=== PATIENT | female | born 2005 | race Caucasian/White ===

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

== ENCOUNTER 2025-01-25 16:07 | Emergency (ER) | payer MEDICAID, SELFPAY ==
[2025-01-25 16:07] VITALS: BP 109/69; PULSE 107; RESP 16; TEMP 36.9; O2SAT 97; BMI 17.4
--- NOTE | 2025-01-25 16:33 | EKG12_ITS ---
Test Reason : PLACEMENT Blood Pressure : */* mmHG Vent. Rate : 69 BPM Atrial Rate : 69 BPM P-R Int : 154 ms QRS Dur : 84 ms QT Int : 358 ms P-R-T Axes : 69 83 71 degrees QTcB Int : 383 ms Normal sinus rhythm Normal ECG Confirmed by Kevin Pardo ([id number]), sports editor MEGHA BUTLER ([id number]) on 01/28/2025 11:49:50 AM Referred By: Confirmed By: Kevin Pardo
--- NOTE | 2025-01-25 16:33 | EX.ED.VIS.PS ---
HPI HPI - Psych History of Present Illness Chief Complaint: Suicidal Informant: patient Narrative Narrative: Patient reports was dropped off from her father for mental health evaluation. She did not tell her father why she wanted to be dropped off. History of anxiety depression, PTSD, ADHD, borderline personality disorder followed by psychology. Increasing suicidal thoughts secondary to stress. States overall stress in general with life, relationship, the world, the way I look. 3 weeks self cutting her thigh reporting wanted to bleed to . She did not get evaluated. Yesterday she tried to strangle herself with a cord. She states she passed out. She awakened. Denies neck pain. States medication has not worked for her in the past. She used to live in [place] she moved here a little over a year ago lived with her grandmother where she was kicked out. She has been with her father for the past year. She contacted her mother today who told her to tell her father take her to emergency department. She was hospitalized this past July. Denies alcohol reports smoked marijuana yesterday uses intermittently however is trying to quit. Prior similar symptoms: Yes PFSH PFSH Medical History Wears glasses Depression Anxiety Marijuana use Alcohol use Anemia Fatty liver Easy bruising Back pain Injury of head and neck Restless legs Migraine headache Dietary restriction History of IBS Gastric reflux Former smoker History of edema History of irregular heartbeat History of bulimia nervosa Borderline personality disorder PTSD (post-traumatic stress disorder) Major depressive disorder, recurrent severe without psychotic features Home Medications ?Medication ?Instructions ?Recorded ?Last Taken ?Type ergocalciferol (vitamin D2) 50 mcg 50 mcg PO WE 09/02/24 Unknown History (2,000 unit) capsule ferrous sulfate 325 mg (65 mg 325 mg PO QDAY 09/02/24 Unknown History iron) tablet (FeroSul) omeprazole 40 mg capsule,delayed 40 mg PO QDAY #30 caps 09/03/24 09/15/24 Rx release Allergy/AdvReac Type Severity Reaction Status Date / Time Penicillins Allergy Unknown Verified 01/25/25 16:07 Family History Mother Asthma Diabetes Hypertension Father Diabetes Surgical History History of esophagogastroduodenoscopy (EGD) Social History Smoking Status: Former smoker ROS ROS ED Constitutional Constitutional ED: Denies chills, fever(s) or sweats ENT ENT ED: Denies sore throat Cardiovascular Cardiovascular: Denies chest pain, leg edema, palpitations or racing heartbeat Respiratory/Chest Respiratory/Chest: Denies cough, dyspnea or dyspnea on exertion Gastrointestinal Gastrointestinal: Denies abdominal pain, diarrhea, nausea or vomiting Genitourinary Genitourinary ED: Denies dysuria, hematuria or urinary frequency Musculoskeletal Musculoskeletal: Denies back pain, extremity pain or neck pain Integumentary Denies rash or wounds Neurologic Neurologic: Denies headache(s), paresthesias or weakness Psychiatric Psychiatric: Reports depression, suicidal ideation, suicidal thoughts and other Details: Suicide attempt EXAM Physical Exam Const Vital Signs: 01/25/25 16:07 Temperature 98.5 F Temperature Source Oral Pulse Rate 107 H Respiratory Rate 16 Blood Pressure 109/69 Blood Pressure Mean 82 Pulse Ox 97 Oxygen Delivery Method Room Air Positive well nourished and well developed General Appearance ED: well developed and NAD HEENT Reports moist mucous membranes normocephalic and atraumatic Eyes General Eye ED: Yes normal appearance of both eyes Neck full ROM Neck Narrative: superficial abrasion left anterior neck. Chest Wall Chest: Negative for tenderness Resp normal respiratory effort and normal air movement Effort and Inspection: symmetric chest movement; Negative for respiratory distress Cardio regular rate, regular rhythm and no murmurs Peripheral Pulses: pulses 2+ throughout GI normal to inspection, nondistended, normoactive bowel sounds and non-tender Palpation: Negative for guarding or rebound tenderness present Extremity normal to inspection General Extremety ED: Negative for edema or tenderness General Extremity: Negative for edema Neuro oriented x3 and no sensory deficits noted Sensorium / Orientation: awake and alert Psych Psych Narrative: Suicidal ideation with attempt, no homicidal ideations. Flat affect. Skin no rashes or lesions noted Skin Narrative: Right thigh superficial horizontal abrasion and that is healing there is no deep lacerations noted. No active bleeding. MDM MDM MDM Narrative Medical decision making narrative: Interventions / MDM: Differential diagnosis: Depression, suicidal ideation with attempt, self injury. Diagnosis considered but do not suspect: N/A My EKG interpretation: Sinus rate of 69, no ST changes. QTc 383 Imaging independently reviewed and interpreted by myself: N/A External documents reviewed: N/A Test considered but not ordered:N/A ED course: Patient depression suicidal ideations with attempt yesterday. Reported syncopal episode. No neck pain for concerns for neck injury. Abrasion noted on the neck. EKG will be obtained. Medical clearance labs. 1733: EKG normal labs are normal toxicology negative alcohol negative. Patient medically cleared. Clive slip will be filled out. Will have crisis evaluation for disposition plans. 1999: Patient evaluated by crisis agrees that patient will benefit from inpatient management. We discussed this with the patient and she understands that she is not going home. Currently working on placement. 2229: Patient requesting something to help her sleep. She is given hydroxyzine. Re-evaluation: stable Disposition discussed with patient/family/significant other: Patient Case discussed with consulting clinician: Zachary This note was generated with Orange[employer] dictation software. It may contain incorrect words, spelling, and punctuation that were not noted in checking the note before signing. Lab Data Attestation: I reviewed the patient's lab results. Labs: Laboratory Results - last 24 hr 01/25/25 16:30 WBC 6.9 RBC 4.12 L Hgb 12.5 Hct 37.0 MCV 89.8 MCH 30.3 MCHC 33.8 RDW Std Deviation 36.7 RDW Coeff of Valentino 11.3 L Plt Count 398 MPV 11.3 Immature Gran % (Auto) 0.300 Neut % (Auto) 54.5 Lymph % (Auto) 36.0 [place] % (Auto) 7.7 Eos % (Auto) 0.9 Baso % (Auto) 0.6 Absolute Neuts (auto) 3.8 Absolute Lymphs (auto) 2.49 Nucleated RBC % 0 Sodium 141 Potassium 3.7 Chloride 103 Carbon Dioxide 24.4 Anion Gap 14 BUN 9 Creatinine 0.84 Estim Creat Clear Calc 94.11 Est GFR (MDRD) Non-Af 102 BUN/Creatinine Ratio 10.2 Glucose 115 H Calcium 9.7 Serum , Qual NEGATIVE Urine Opiates Screen NEGATIVE U Buprenorphine Qual NEGATIVE Ur Oxycodone Screen NEGATIVE Urine Methadone Screen NEGATIVE Urine Fentanyl Screen NEGATIVE Ur Barbiturates Screen NEGATIVE Ur Phencyclidine Scrn NEGATIVE Ur Amphetamines Screen NEGATIVE U Benzodiazepines Scrn NEGATIVE Urine Cocaine Screen NEGATIVE U Cannabinoids Screen NEGATIVE Ethyl Alcohol < 10.1 Discharge Plan Triage Chief Complaint: Suicidal ED Provider: Vidal Molina Dx/Rx/DC Orders Clinical Impression: Has access to planned means of suicide, Depression, Self-inflicted injury Prescriptions: No Action ferrous sulfate [FeroSul] 325 mg (65 mg iron) tablet 325 mg PO QDAY ergocalciferol (vitamin D2) 50 mcg (2,000 unit) capsule 50 mcg PO WE omeprazole 40 mg capsule,delayed release(DR/EC) 40 mg PO QDAY Qty: 30 1RF Rx Instructions: swallow whole; do not crush, chew, dissolve, cut, break Primary Care Provider: Chiquita Buenrostro Referrals: Chiquita Buenrostro, DO [Primary Care Provider] - Print Language: Bahraini Disposition Disposition: Psychiatric Hospital or Unit
--- OUTSIDE RECORDS SUMMARY | 2025-01-25 17:02 | XMS RPT_ITS | CCD ---
Author Organization [facility] Care Team Providers Care Etl Manager Name Role Phone Erika Grant Primary Care Unavailable Jaclyn Rm Attending Unavailable Jaclyn Rm Referring Unavailable Erika Grant Primary Care Unavailable Jaclyn Rm Attending Unavailable Jaclyn Rm Referring Unavailable Chitra VSC, Chiquita Primary Care Unavailable Beam VSC, Candis Attending Unavailable Erika Grant Primary Care Unavailable Jaclyn Rm Attending Unavailable Jaclyn Rm Referring Unavailable Robotham, Ama Consulting Unavailable Robotham, Ama Attending Unavailable Robotham, Ama Referring Unavailable Chitra VSC, Chiquita Primary Care Unavailable Chitra VSC, Chiquita Primary Care Unavailable Chitra VSC, Chiquita Referring Unavailable Robotham, Ama Attending Unavailable Robotham, Ama Attending Unavailable Robotham, Ama Referring Unavailable Chitra VSC, Chiquita Primary Care Unavailable Matheus Michel Attending Unavailable Care Physician, No Primary Primary Care Unava ilable Unavailable Primary Care Provider UnavailJAJA Celis Attending Unavailable Allergies Allergy Classification Reported Allergen(s) Allergy Type Date of Onset Reaction(s) Facility (1 source) Penicillins Drug allergy (disorder) 5 [facility] Repository (1 source) father diandra allergic to PCN [Other] Propensity to adverse reactions 6 [facility] (1 source) OTHER; Translations: [OTHER] Propensity to adverse reactions (disorder) 6 [facility] Repository Medications Current Medications Medication Drug Class(es) Dates Sig (Normalized) Sig (Original) ascorbic acid 60 mg / cholecalciferol 0.01 mg / folic acid 0.3 mg / niacin 13.5 mg / riboflavin 1.2 mg / sodium fluoride 2.2 mg / thiamine 1.05 mg / vitamin a 0.75 mg / vitamin b12 0.0045 mg / vitamin b6 1.05 mg / vitamin e 15 unt chewable tablet (1 source) Nicotinic Acid, Vitamin A, Vitamin B12, Vitamin D, Vitamin C Start: 12-02-2014 take 1 tablet by mouth once daily Pedi MVI No.17 with Fluoride (MULTI-VITAMIN WITH FLUORIDE) 1 mg chew Take 1 tablet by mouth once daily. 30 tablet 11 12/02/2014 Active dextromethorphan hydrobromide 3 mg/ml / promethazine hydrochloride 1.25 mg/ml oral solution (1 source) Phenothiazine, Uncompetitive V-uvjhvh-H-aspartat e Receptor Antagonist, Sigma-1 Agonist Start: 04-08-2015 take 3 mL by mouth every six hours as needed Promethazine-DM (PHENERGAN-DM) 6.25-15 mg/5 mL syrup Take 2.5 mL by mouth four times daily as needed. 60 mL 1 04/08/2015 Active prednisoLONE 3 mg/ml oral solution (1 source) Corticosteroid Start: 04-08-2015 prednisoLONE (ORAPRED) 15 mg/5 mL solution 15ml daily x 3 days 45 mL 0 04/08/2015 Active Problems Active Problems Problem Classification Problem Date Documented Da te Episodic/Chronic Deficiency and other anemia (1 source) Anemia, unspecified; Translations: [Anemia, unspecified] Onset: 09-13-2024 Episodic Esophageal disorders (1 source) Gastro-esophagea l reflux disease without esophagitis; Translations: [Gastro-esophage al reflux disease without esophagitis] Onset: 10-03-2024 Chronic Other gastrointestinal disorders (1 source) Acute constipation; Translations: [Constipation, unspecified] 01-04-2025 Episodic Other gastrointestinal disorders (1 source) Constipation, unspecified; Translations: [Acute constipation] Onset: 01-04-2025 Episodic Suicide and intentional self-inflicted injury (1 source) Suicidal ideations; Translations: [Suicidal ideations] Onset: 07-16-2024 Episodic Past or Other Problems Problem Classification Problem Date Documented Da te Episodic/Chronic Disorders of teeth and jaw (1 source) Tooth discolored; Translations: [Posteruptive color changes of dental hard tissues] Onset: 12-02-2014 08-02-2021 Episodic Results Test Name Value Interpretation Reference Range Facility [facility] 01-04-2025 CNOV Office Visit (UCWSTR ) REY TAI ([id number]) 5 F Date Time Provider Department 01/04/25 12:45 PM JAJA ROSARIO [facility] During your visit today, we recorded the following information about you: Temperature Pulse Respiration Blood pressure 98.6 degrees 80/minute 18/minute 110/64 Weight 59 kg Jaja Rosario APRN.VEGETABLE SPECKER 01/04/2025 1:11 PM Signed [facility] Subjective Rey Tai is a 19 year old female. Patient presents with: Constipation: X 5 days HPI Nontoxic-appearing 19-year-old female presents urgent care chief complaint constipation. Duration of symptoms 5 days. Associated symptoms constipation. Presents today for evaluation. OTC medications none. Denies any vomiting abdominal pain dysuria. No rectal pain blood in the stool. Denies chance of . Past medical history prescription medications allergies reviewed. Review of Systems Constitutional: Negative for chills, diaphoresis, fatigue and fever. HENT: Negative for congestion, drooling, ear discharge, ear pain, rhinorrhea, sinus pressure, sinus pain, sneezing, sore throat and trouble swallowing. Eyes: Negative for pain, discharge, redness, itching and visual disturbance. Respiratory: Negative for cough, chest tightness, shortness of breath and wheezing. Cardiovascular: Negative for chest pain. Gastrointestinal: Positive for constipation. Negative for abdominal distention, abdominal pain, blood in stool, diarrhea, nausea and vomiting. Genitourinary: Negative for difficulty urinating and dysuria. Musculoskeletal: Negative for arthralgias, joint swelling, neck pain and neck stiffness. Skin: Negative for rash. Neurological: Negative for dizziness, weakness, numbness and headaches. Objective BP 110/64 Pulse 80 Temp 37 ?C (98.6 ?F) (Tympanic) Resp 18 Wt 59 kg (130 lb 1.1 oz) SpO2 98% Physical Exam Constitutional: Appearance: Normal appearance. HENT: Head: Normocephalic. Jaw: No trismus, tenderness, swelling or pain on movement. Nose: No congestion. Mouth/Throat: Mouth: Mucous membranes are moist. Pharynx: Oropharynx is clear. Uvula midline. No oropharyngeal exudate or posterior oropharyngeal erythema. Eyes: Conjunctiva/sclera: Conjunctivae normal. Cardiovascular: Rate and Rhythm: Normal rate. Pulmonary: Effort: Pulmonary effort is normal. Breath sounds: Normal breath sounds. No wheezing, rhonchi or rales. Abdominal: Palpations: Abdomen is soft. Tenderness: There is no abdominal tenderness. There is no right CVA tenderness, left CVA tenderness, guarding or rebound. Musculoskeletal: General: Normal range of motion. Cervical back: Normal range of motion and neck supple. No edema or erythema. No pain with movement. Normal range of motion. Lymphadenopathy: Cervical: No cervical adenopathy. Skin: General: Skin is warm. Findings: No rash. Neurological: General: No focal deficit present. Mental Status: She is alert and oriented to person, place, and time. Mental status is at baseline. {ASSESSMENT/PLAN: 1. Acute constipation - ICD9: 564.00, ICD10: K59.00 Diagnosed with acute constipation. Encourage increase fluids fiber reviewed and MiraLAX. Patient was educated on supportive therapies. Patient will follow up with primary care provider as needed. Patient was instructed to immediately proceed to emergency room for any new, worsening, or symptoms lasting longer than anticipated. The patient's clinical presentation is otherwise unremarkable at this time. Based on exam and clinical finding, the patient is stable for discharge. Plan of care was discussed with patient. Patient verbalizes understanding and agrees to plan of care. This note was generated using Emme E2MS software. It may contain errors in wording, punctuation, or spelling. Jaja Rosario APRN.VEGETABLE SPECKER History and Record Review Clinical information obtained from an independent historian. History obtained from or confirmed by: parent. External record(s) reviewed: prior outpatient record. Disposition The patient was discharged. OTC Medications were advised: Procedures Allergies As of Date: 01/04/2025 Noted Allergy Reaction father diandra allergic to PCN [O*2005 Date Reviewed: 01/04/2025 Reviewed by: Jaja Rosario APRN.VEGETABLE SPECKER - Fully Assessed Reason for Visit: Constipation [25] Cmt: X 5 days Primary Visit Diagnosis:Acute constipation [K59.00] Prescriptions as of 01/04/2025 - prednisoLONE (ORAPRED) 15 mg/5 mL solution 15ml daily x 3 days - Promethazine-DM (PHENERGAN-DM) 6.25-15 mg/5 mL syrup Take 2.5 mL by mouth four times daily as needed. - Pedi MVI No.17 with Fluoride (MULTI-VITAMIN WITH FLUORIDE) 1 mg chew Take 1 tablet by mouth once daily. Problem List As Of Date 01/04/2025 Noted Resolved Tooth discoloration [K03.7] 12/02/2014 Level of Service: OFFICE/OUTPATIENT ES (more content not included)... Normal [facility] EGD Reporton 09-18-2024 EGD Report [facility] Medical Records Department [address] [place] [address] EGD Report MR#: [id number] Acct: [id number] Name: REY TAI Rep #: [id number] : 2005 19 From: Ama Acosta MD PCP: Chiquita Buenrostro DO Status:REG [facility] Patient Name: Rey Tai Procedure Date: 09/18/2024 11:00 AM Date of : 2005 Age: 19 Procedure: Upper GI endoscopy Indications: Heartburn Providers: Ama Acosta MD Referring MD: Ama Acosta MD Medicines: Monitored Anesthesia Care Patient Profile: This is a 19 year old female. Complications: No immediate complications. Procedure: Pre-Anesthesia Assessment: - Prior to the procedure, a History and Physical was performed, and patient medications and allergies were reviewed. The patient's tolerance of previous anesthesia was also reviewed. The risks and benefits of the procedure and the sedation options and risks were discussed with the patient. All questions were answered, and informed consent was obtained. Prior Anticoagulants: The patient has taken no anticoagulant or antiplatelet agents. ASA Grade Assessment: Per anesthesia. After reviewing the risks and benefits, the patient was deemed in satisfactory condition to undergo the procedure. After obtaining informed consent, the endoscope was passed under direct vision. Throughout the procedure, the patient's blood pressure, pulse, and oxygen saturations were monitored continuously. The Endoscope was introduced through the mouth, and advanced to the second part of duodenum. The upper GI endoscopy was accomplished without difficulty. The patient tolerated the procedure well. Scope In: 11:05:45 AM Scope Out: 11:10:56 AM Total Procedure Duration Time 0 hours 5 minutes 11 seconds Findings: The Z-line was irregular and was found 40 cm from the incisors. Biopsies were taken with a cold forceps for histology. Mildly erythematous mucosa without bleeding was found in the gastric antrum. Biopsies were taken with a cold forceps for histology. Biopsies were taken with a cold forceps for Helicobacter pylori cultures. The examined duodenum was normal. The cardia and gastric fundus were normal on retroflexion. Impression: - Z-line irregular, 40 cm from the incisors. Biopsied. - Erythematous mucosa in the antrum. Biopsied. - Normal examined duodenum. Recommendation: - Await pathology results. - Discharge patient to home. - Resume previous diet. - Continue present medications. Procedure Code(s): --- Professional --- 22067, PT, Esophagogastroduodenoscopy, flexible, transoral; with biopsy, single or multiple Diagnosis Code(s): --- Professional --- K22.89, Other specified disease of esophagus K31.89, Other diseases of stomach and duodenum R12, Heartburn CPT copyright 2021 [employer]. All rights reserved. The codes documented in this report are preliminary and upon liquid waste treatment plant operator review may be revised to meet current compliance requirements. MD Ama Khan MD 09/18/2024 11:15:01 AM This report has been signed electronically. Number of Addenda: 0 Note Initiated On: 09/18/2024 11:00 AM 09/18/24 1115 Date Ama Acosta MD Cosigner Signature: Date (if indicated) CC: Dr. Ama Acosta MD; Chiquita Buenrostro, Date Dictated: 09/18/24 1100 Date Transcribed: Program Schedule Clerk: TR Signed Normal [facility] H Pylori (initial)on 025 H Pylori (initial) ----- Patient Age/Sex Location Account Attending Physician ----- REY TAI /F EN [id number] Dr. Ama Acosta MD ----- Specimen: [id number] Received: 09/18/24 Status: ERIK Cristinacinthya Num: [id number] Spec Type: IMMUNO Subm Dr: Dr. Ama Acosta MD PHYSICIAN INSTITUTION [place] [address] SPECIMEN INFORMATION: Tissue Source: A- Gastric antrum biopsy Clinical Info: Acid reflux Specimen Number: [id number] CPT code: 79005 METHODOLOGY: Deparaffinized sections of prefer/formalin-fixed tissue or PAP/DQ stained slides are incubated with monoclonal/polyclonal antibodies/oligonucleotide probes. Localization is made via biotin free immunoperoxidase method. Appropriate controls are performed and reacted as expected. Results on target cell population are indicated in the following table: RESULTS: ANTIBODY / CLONE RESULT Block A H Pylori (polyclonal) negative These tests were developed and their performance characteristics determined by [facility]. They may not have been cleared or approved by the U.S. Food and Drug Administration. The FDA has determined that such clearance or approval is not necessary. The above immunohistochemical/dualISH markers are ordered and reviewed by the Pathologist. INTERPRETATION: A. Gastric antrum, biopsy: Negative for Helicobacter pylori organisms. 09/19/2024 Signed (signature on file) Dr. Ahsan Talamantes MD 09/19/24 1316 ----- Normal [facility] Comment on above: Performed By: #### L 500.3400 #### [facility] [address] [place], [address] MR/POSTOP.Tara 09-18-2024 MR/POSTOP.[facility] Medical Records Department [address] [place] [address] Anesthesia Postop Eval I 09/18/24 1124 MR#: [id number] Acct: [id number] Name: REY TAI Rep #: [id number] : 2005 19 From: Jose Lay PCP: Chiquita Buenrostro DO Status:REG SDC Y Race: C Location: [place] [address] Anesthesia: Postop Eval I Current Vital Signs Temperature: 97.4 F Pulse Rate: 64 Blood Pressure: 92/56 Respiratory Rate: 16 Pulse Ox: 98 Oxygen Delivery Method: Room Air Assessment Airway patent: Yes Spontaneous unlabored respirations: Yes Mental status: Asleep nausea: No Vomiting: No Anesthesia Complication: No Fluid Hydration Crystalloid volume administer (ml): 30 Total IV fluid infused: 30 Progress Note Anesthesia document: Postop Eval 1 completed: Yes 09/18/24 1125 Date Jose Minormickibhumi Signature: Date CC: Signed Normal [facility] MR/RUYUAVNU1yr 09-18-2024 [facility] Medical Records Department [address] [place] [address] Anesthesia Postop Eval II 09/18/24 1134 MR#: [id number] Acct: [id number] Name: REY TAI Rep #: [id number] : 2005 19 From: Oscar Finney MD PCP: Chiquita Buenrostro DO Status:REG SDC Y Race: C Location: [place] [address] Anesthesia Postop Eval I Sum Postop Eval Completion status Anesthesia document: Postop Eval 1 completed: Yes Anesthesia Postop Eval I Summary Anesthesia Postop Eval I Summary: Anesthesia Postop Eval I: Assessment Summary Airway patent Yes 09/18/24 11:25 [email or web address] Spontaneous unlabored Yes 09/18/24 11:25 [email or web address] respirations Mental status Asleep 09/18/24 11:25 [email or web address] nausea No 09/18/24 11:25 [email or web address] Vomiting No 09/18/24 11:25 [email or web address] Anesthesia Postop Eval I: Fluid Summary Crystalloid volume administer 30 09/18/24 11:25 [email or web address] (ml) Colloids volume administered ( ml) Blood Product volume administered (ml) Total IV fluid infused 30 09/18/24 11:25 [email or web address] Anesthesia Postop Eval I: Summary Notes Anesthesia Complication No 09/18/24 11:25 [email or web address] Anesthesia Complication Comment: Post-operative progress note Anesthesia: Postop Eval II Evaluation Mental status: Awake Pain Level: 0 nausea: No Vomiting: No 09/18/24 1134 Date Oscar Pulido Signature: Date CC: Signed Normal [facility] ,Urineon 09-18-2024 Beta HCG ( test) Ql (U) Negative Normal [facility] Comment on above: Result Comment: Very dilute urine specimens, as indicated by a low specific gravity, may not contain parts sales representative levels of hCG. If is still suspected, a first morning urine specimen should be collected 48 hours later and tested. Performed By: #### L 400.7600 ####[facility] [id number] [place], [address] Special Stain Group Ion 09-07 Special Stain Group I ----- Patient Age/Sex Location Account Attending Physician ----- REY TAI / EN [id number] Dr. Ama Acosta MD ----- Specimen: [id number] Received: 09/18/24 Status: ERIK Campos Num: [id number] Spec Type: EGD BIOPSY Subm Dr: Dr. Ama Acosta MD HEADER OPERATION: EGD and biopsy PRE-OP DIAGNOSIS: Acid reflux TISSUE SUBMITTED: A- Gastric antrum biopsy, B- Gastroesophageal junction biopsy ----- MICROSCOPIC DIAGNOSIS A. Gastric antrum, biopsy: Mild gastritis. See microscopic description and comment. B. Gastroesophageal junction, biopsy: A fragment of gastroesophageal mucosa with chronic inflammation. Intestinal metaplasia (goblet cell metaplasia) is not identified. See comment. 09/19/2024 COMMENT A. The results of immunohistochemistry for Helicobacter pylori will be reported separately ([id number]). B. Alcian blue/PAS stain with matched control is used in the evaluation of the specimen. MICROSCOPIC DESCRIPTION Slides are reviewed. A. The specimen shows fragments of gastric mucosa with chronic inflammatory cell infiltrates in the lamina propria consisting of lymphocytes and plasma cells, consistent with mild chronic gastritis. GROSS DESCRIPTION A. Received in fixative is one container labeled with the patient's name and designated Gastric antrum biopsy. The specimen consists of two irregular fragments of light delgado soft tissue that in aggregate measure 0.6 x 0.3 x 0.1 cm. The specimen is totally submitted in one cassette. B. Received in fixative is one container labeled with the patient's name and designated GE junction biopsy. The specimen consists of one irregular fragment of light delgado soft tissue that measures 0.4 x 0.2 x 0.1 cm. The specimen is totally submitted in one cassette. 09/18/2024 TC: 3 CPT:36957b9 ,96391 ----- Patient Age/Sex Location Account Attending Physician ----- REY TAI EN [id number] Dr. Ama Acosta MD ----- Signed (signature on file) Dr. Ahsan Talamantes MD 09/19/24 1323 ----- Normal [facility] Comment on above: Performed By: #### L 500.3400 #### [facility] [address] [place], [address] Surgery Visit Reporton 09-02 Surgery Visit Report [facility] [address] [place] [address] OFFICE VISIT Date of Service: 09/02/24 MR#: [id number] Acct: [id number] Name: REY TAI Rep #: [id number] : 2005 Provider: Dr. Ama dale MD Age/Sex: 19/F Location: [facility] Status: Signed Intake Vital Signs 06/26/24 12:11 09/02/24 09:26 Height 5 ft 10 in 5 ft 10 in Weight: 143 lb BMI 20.5 BP 110/73 Blood Pressure Location Rt brachial Position Sitting Respiration 18 Pulse 82 Pulse Source Monitor Pulse Oximetry (%) 97 Oxygen Delivery Method room air Intake Visit Reasons: EGD- GERD Chief Complaint: egd/gerd Is patient in pain?: No Allergies Penicillins Allergy (Verified 09/02/24 09:27) Unknown Medications ???Medication ???Instructions ???Recorded ???Confirmed ???Type citalopram 20 mg tablet (Celexa) 40 mg PO DAILY 07/17/24 09/02/24 History ergocalciferol (vitamin D2) 50 mcg 50 mcg PO QDAY 09/02/24 09/02/24 History (2,000 unit) capsule ferrous sulfate 325 mg (65 mg 325 mg PO QDAY 09/02/24 09/02/24 History iron) tablet (FeroSul) propranolol 20 mg tablet 20 mg PO DAILY 09/02/24 09/02/24 History omeprazole 40 mg capsule,delayed 40 mg PO QDAY #30 caps 09/03/24 09/03/24 Rx release PFSH Medical History (Updated 09/02/24 @ 09:25 by Betty Mock) History of bulimia nervosa Borderline personality disorder PTSD (post-traumatic stress disorder) Major depressive disorder, recurrent severe without psychotic features Family History (Updated 09/02/24 @ 09:26 by Betty Mock) Mother Asthma Diabetes Hypertension Father Diabetes Social History Smoking Status: Never smoker HPI HPI HPI: 19-year-old female presents for EGD/reflux. Patient states that she did previously have an EGD in 2019 x 2 per patient unsure if it was EOE as patient had issues with bulimia at the time as well and recommended to have a rescope once that has been improved. Sound like patient did get the oral budesonide this was all in [place]. Currently patient states that in the last week she has been having bad GERD symptoms with burning up her esophagus daily along with nausea. Patient states that prior to that she was having an acid feeling in her throat about 4 days out of the week. Patient is not on any medication for this. Patient does like marinara sauce/spaghetti. Patient states she can get the symptoms worse at night. ROS General General: Yes weight change and fatigue; No appetite, colon cancer or breast cancer HEENT HEENT: No difficulty swallowing, eye injury, eye surgery, swollen glands or hoarseness Endo Endocrine: No thyroid disease, diabetes mellitus, thyroid cancer, Hair loss, heat intolerance or cold intolerance Skin Skin: Yes changing moles; No rash Musc Musculoskeletal: Yes back problems; No arthritis, rheumatoid arthritis, gout or joint pain Cardio Cardiovascular: Yes murmur; No pacemaker, heart disease, atrial fibrillation, high blood pressure, heart attack, heart stent, palpitations, shortness of breat with exertion or chest pain Psych Psychiatric: Yes depression and anxiety; No hearing voices Resp Respiratory: Yes shortness of breath, No sleep apnea, No cough, No COPD, No asthma, No emphysema and No wheezing Gastro Gastrointestinal: Yes abdominal pain, Yes nausea or vomiting, Yes diarrhea, Yes constipation, No blood in stool, Yes acid reflux, Yes hemorrhoids, No ulcers, No gallbladder problem and Yes black,tarry stools Maxx Hematologic: No blood thinners, No blood disorders, No bleeding, Yes anemia and No blood clots Neuro Neurologic: No numbness and No tingling Exam Const General: cooperative, healthy appearing, comfortable and no acute distress Neck Neck: normal visual inspection Resp Effort Inspection: normal respiratory effort Cardio Rate: regular rate GI Inspection: non-distended Palpation: soft, no guarding and nontender Skin General: no rashes or lesions noted Neuro General: patient oriented x3 Psych Affect: normal affect Assessment and Plan Assessment and Plan (1) Acid reflux: Status: Acute Orders: Orders EGD 09/18/24 Traci PERDUE PA-C Medications: New omeprazole swallow whole; do not crush, chew, dissolve, cut, break 40 mg PO QDAY [address] Ama Acosta MD Plan Will send prescription for omeprazole 40 mg p.o. daily also discussed with patient she can also take famotidine 20 mg to 40 mg p.o. 1-2 times daily as needed. Also discussed that she can out eat her medication especially with foods known to irritate reflux-like marinara sauce. I have discussed the above with the patient. I have offered the patient esophagogastroduodenoscopy for (more content not included)... Normal [facility] ONEYDA Comprehensive Panelon ONEYDA TABLE Comment Normal . [facility] Comment on above: Result Comment: Auto antibody Disease Association Condition Frequency --------- Antinuclear Antibody, SLE, mixed connective Direct (ONEYDA-D) tissue diseases --------- dsDNA SLE 40 - 60% --------- Chromatin Drug induced SLE 90% SLE 48 - 97% --------- SSA (Ro) SLE 25 - 35% Sjogren's Syndrome 40 - 70% Lupus 100% --------- SSB (La) SLE 10% Sjogren's Syndrome 30% --------- Sm (anti-Mora) SLE 15 - 30% --------- STRAW HAT PLUNGER OPERATOR Mixed Connective Tissue Disease 95% (U1 nRNP, SLE 30 - 50% anti-ribonucleoprotein) Polymyositis and/or Dermatomyositis 20% --------- Scl-70 (antiDNA Scleroderma (diffuse) 20 - 35% topoisomerase) Crest 13% --------- Aggie-1 Polymyositis and/or Dermatomyositis 20 - 40% --------- Centromere B Scleroderma - Crest variant 80% Performed By: #### L 505.7010, L503.0105, L503.6550, L100.0100, L506.0250, L506.1000, L3100.7870, L503.6030, L501.9520, L4600.0100, L3100.5440, L101.9900 #### [facility] [address] [place], [place], [id number] ANTI-DNA (DS)AB <1 Normal 0-9 [facility] Comment on above: Result Comment: Nega tive <5 Equivocal 5 - 9 Positive >9 Performed By: #### L 505.7010, L503.0105, L503.6550, L100.0100, L506.0250, L506.1000, L3100.7870, L503.6030, L501.9520, L4600.0100, L3100.5440, L101.9900 #### [facility] [address] [place], [address] CRP, High Sensitivity [id number] on 08-26-2024 CRP, HIGH SENS 0.31 mg/L Normal 0.00-3.00 [facility] Comment on above: Result Comment: Rela tive Risk for Future Cardiovascular Event Low <1.00 Average 1.00 - 3.00 High >3.00 Performed at: [employer] [id number] [employer] Pilot: Rajiv Shaffer PhD, Phone: [phone] Performed By: #### L 505.7010, L503.0105, L503.6550, L100.0100, L506.0250, L506.1000, L3100.7870, L503.6030, L501.9520, L4600.0100, L3100.5440, L101.9900 ####[facility] [address] [place], [address] CCP IgG Antibodieson 025 CCP IgG Ab. 3 units Normal 0-19 [facility] Comment on above: Result Comment: Nega tive <20 Weak positive 20 - 39 Moderate positive 40 - 59 Strong positive >59 Performed at: [facility] [address] [id number] [employer]: Rajiv Shaffer PhD, Phone: [phone] Performed By: #### L 505.7010, L503.0105, L503.6550, L100.0100, L506.0250, L506.1000, L3100.7870, L503.6030, L501.9520, L4600.0100, L3100.5440, L101.9900 ####[facility] [address] [place], [place], [id number] CBC W/Diff, Automatedon 08-07 Absolute Lymph 1.98 X10 3/uL Normal 0.83-4.51 [facility] Comment on above: Performed By: #### L 505.7010, L503.0105, L503.6550, L100.0100, L506.0250, L506.1000, L3100.7870, L503.6030, L501.9520, L4600.0100, L3100.5440, L101.9900 #### [facility] [address] [place], [place], [phone] Absolute Neut 4.0 X10 3/uL Normal 2.0-7.7 [facility] Comment on above: Performed By: #### L 505.7010, L503.0105, L503.6550, L100.0100, L506.0250, L506.1000, L3100.7870, L503.6030, L501.9520, L4600.0100, L3100.5440, L101.9900 #### [facility] [address] [place], [place], [phone] (429) Basophils/100 WBC (Bld) 0.6 % Normal 0-1 [facility] Comment on above: Performed By: #### L 505.7010, L503.0105, L503.6550, L100.0100, L506.0250, L506.1000, L3100.7870, L503.6030, L501.9520, L4600.0100, L3100.5440, L101.9900 #### [facility] [address] [place], [address] Eosinophils/100 WBC (Bld) 1.1 % Normal 0-5 [facility] Comment on above: Performed By: #### L 505.7010, L503.0105, L503.6550, L100.0100, L506.0250, L506.1000, L3100.7870, L503.6030, L501.9520, L4600.0100, L3100.5440, L101.9900 #### [facility] [address] [place], [address] Erythrocyte distribution width (RBC) [Ratio] 11.6 % Normal 11.6-14.6 [facility] Comment on above: Performed By: #### L 505.7010, L503.0105, L503.6550, L100.0100, L506.0250, L506.1000, L3100.7870, L503.6030, L501.9520, L4600.0100, L3100.5440, L101.9900 #### [facility] [address] [place], [address] Hematocrit (Bld) [Volume fraction] 35.5 % Low 37-47 [facility] Comment on above: Performed By: #### L 505.7010, L503.0105, L503.6550, L100.0100, L506.0250, L506.1000, L3100.7870, L503.6030, L501.9520, L4600.0100, L3100.5440, L101.9900 #### [facility] [address] [place], [address] Hemoglobin (Bld) [Mass/Vol] 11.8 g/dL Low 12.0-15.0 [facility] Comment on above: Performed By: #### L 505.7010, L503.0105, L503.6550, L100.0100, L506.0250, L506.1000, L3100.7870, L503.6030, L501.9520, L4600.0100, L3100.5440, L101.9900 #### [facility] [address] [place], [address] IG% 0.200 Normal 0.0-0.9 [facility] Comment on above: Result Comment: IG% - Immature Granulocytes (promyelocytes, myelocytes and metamyelocytes) > 1% indicates that a LEFT SHIFT is Present. Performed By: #### L 505.7010, L503.0105, L503.6550, L100.0100, L506.0250, L506.1000, L3100.7870, L503.6030, L501.9520, L4600.0100, L3100.5440, L101.9900 #### [facility] [address] [place], [address] Lymphocytes/100 WBC (Bld) 30.6 % Normal 19-41 [facility] Comment on above: Performed By: #### L 505.7010, L503.0105, L503.6550, L100.0100, L506.0250, L506.1000, L3100.7870, L503.6030, L501.9520, L4600.0100, L3100.5440, L101.9900 #### [facility] [address] [place], [address] MCH (RBC) [Entitic mass] 30.0 pg Normal 27.0-32.0 [facility] Comment on above: Performed By: #### L 505.7010, L503.0105, L503.6550, L100.0100, L506.0250, L506.1000, L3100.7870, L503.6030, L501.9520, L4600.0100, L3100.5440, L101.9900 #### [facility] [address] [place], [address] MCHC (RBC) [Mass/Vol] 33.2 g/dL Normal 32-36 [facility] Comment on above: Performed By: #### L 505.7010, L503.0105, L503.6550, L100.0100, L506.0250, L506.1000, L3100.7870, L503.6030, L501.9520, L4600.0100, L3100.5440, L101.9900 #### [facility] [address] [place], [address] MCV (RBC) [Entitic vol] 90.3 fL Normal 81-99 [facility] Comment on above: Performed By: #### L 505.7010, L503.0105, L503.6550, L100.0100, L506.0250, L506.1000, L3100.7870, L503.6030, L501.9520, L4600.0100, L3100.5440, L101.9900 #### [facility] [address] [place], [address] Monocytes/100 WBC (Bld) 6.0 % Normal 0-10 [facility] Comment on above: Performed By: #### L 505.7010, L503.0105, L503.6550, L100.0100, L506.0250, L506.1000, L3100.7870, L503.6030, L501.9520, L4600.0100, L3100.5440, L101.9900 #### [facility] [address] [place], [address] Neutrophils/100 WBC (Bld) 61.5 % Normal 47-70 [facility] Comment on above: Performed By: #### L 505.7010, L503.0105, L503.6550, L100.0100, L506.0250, L506.1000, L3100.7870, L503.6030, L501.9520, L4600.0100, L3100.5440, L101.9900 #### [facility] [address] [place], [address] Nucleated RBC (Bld) [#/Vol] 0 10*3/uL Normal 0-5 [facility] Comment on above: Performed By: #### L 505.7010, L503.0105, L503.6550, L100.0100, L506.0250, L506.1000, L3100.7870, L503.6030, L501.9520, L4600.0100, L3100.5440, L101.9900 #### [facility] [address] [place], [address] Platelet mean volume (Bld) [Entitic vol] 10.9 fL Normal 6.2-12.0 [facility] Comment on above: Performed By: #### L 505.7010, L503.0105, L503.6550, L100.0100, L506.0250, L506.1000, L3100.7870, L503.6030, L501.9520, L4600.0100, L3100.5440, L101.9900 #### [facility] [address] [place], [address] Platelets (Bld) [#/Vol] 434 10*3/uL Normal 150-450 [facility] Comment on above: Performed By: #### L 505.7010, L503.0105, L503.6550, L100.0100, L506.0250, L506.1000, L3100.7870, L503.6030, L501.9520, L4600.0100, L3100.5440, L101.9900 #### [facility] [address] [place], [address] RBC (Bld) [#/Vol] 3.93 10*6/uL Low 4.2-5.4 [facility] Comment on above: Performed By: #### L 505.7010, L503.0105, L503.6550, L100.0100, L506.0250, L506.1000, L3100.7870, L503.6030, L501.9520, L4600.0100, L3100.5440, L101.9900 #### [facility] [address] [place], [place], [phone] (585) RDW SD 38.4 fl Normal 35.1-43.9 [facility] Comment on above: Performed By: #### L 505.7010, L503.0105, L503.6550, L100.0100, L506.0250, L506.1000, L3100.7870, L503.6030, L501.9520, L4600.0100, L3100.5440, L101.9900 #### [facility] [address] [place], [place], [id number] WBC (Bld) [#/Vol] 6.5 10*3/uL Normal 4.4-11.0 [facility] Comment on above: Performed By: #### L 505.7010, L503.0105, L503.6550, L100.0100, L506.0250, L506.1000, L3100.7870, L503.6030, L501.9520, L4600.0100, L3100.5440, L101.9900 #### [facility] [address] [place], [place], [phone] Erythrocyte Sed Rateon 08-22 SED RATE 12 mm/hr Normal 0-30 [facility] Comment on above: Performed By: #### L 505.7010, L503.0105, L503.6550, L100.0100, L506.0250, L506.1000, L3100.7870, L503.6030, L501.9520, L4600.0100, L3100.5440, L101.9900 #### [facility] [address] [place], [address] Ferritinon 08-22-2024 Ferritin [Mass/Vol] 17 ng/mL Normal 8-252 [facility] Comment on above: Order Comment: N Performed By: #### L 505.7010, L503.0105, L503.6550, L100.0100, L506.0250, L506.1000, L3100.7870, L503.6030, L501.9520, L4600.0100, L3100.5440, L101.9900 ####[facility] [address] [place], [place], [phone] Folates, (Folic Acid)on 08-07 FOLATES 21.90 ng/mL Normal 3.1-55.4 [facility] Comment on above: Order Comment: N Performed By: #### L 505.7010, L503.0105, L503.6550, L100.0100, L506.0250, L506.1000, L3100.7870, L503.6030, L501.9520, L4600.0100, L3100.5440, L101.9900 ####[facility] [address] [place], [address] Iron+Iron Binding Capacityon 08-22-2024 Iron [Mass/Vol] 83 ug/dL Normal 50-170 [facility] Comment on above: Order Comment: N Performed By: #### L 505.7010, L503.0105, L503.6550, L100.0100, L506.0250, L506.1000, L3100.7870, L503.6030, L501.9520, L4600.0100, L3100.5440, L101.9900 #### [facility] [address] [place], [address] IRON SATURATION 20.4 Normal 15.0-55.0 [facility] Comment on above: Order Comment: N Performed By: #### L 505.7010, L503.0105, L503.6550, L100.0100, L506.0250, L506.1000, L3100.7870, L503.6030, L501.9520, L4600.0100, L3100.5440, L101.9900 #### [facility] [address] [place], [address] TIBC 406 ug/dL Normal 250-450 [facility] Comment on above: Order Comment: N Performed By: #### L 505.7010, L503.0105, L503.6550, L100.0100, L506.0250, L506.1000, L3100.7870, L503.6030, L501.9520, L4600.0100, L3100.5440, L101.9900 #### [facility] [address] [place], [address] Rheumatoid Factoron 08-22-19 25 RHEUMATOID FAC < 10.0 Normal <15 [facility] Comment on above: Order Comment: N Performed By: #### L 505.7010, L503.0105, L503.6550, L100.0100, L506.0250, L506.1000, L3100.7870, L503.6030, L501.9520, L4600.0100, L3100.5440, L101.9900 ####[facility] [address] [place], [address] Thyroid Stim Hormone (TSH)on 08-22-2024 TSH 3.400 uIU/mL Normal 0.358-3.740 [facility] Comment on above: Order Comment: N Performed By: #### L 505.7010, L503.0105, L503.6550, L100.0100, L506.0250, L506.1000, L3100.7870, L503.6030, L501.9520, L4600.0100, L3100.5440, L101.9900 #### [facility] [address] [place], [address] Vitamin B12on 08-22-2024 Cobalamin (Vitamin B12) [Mass/Vol] 446 pg/mL Normal 211-911 [facility] Comment on above: Performed By: #### L 505.7010, L503.0105, L503.6550, L100.0100, L506.0250, L506.1000, L3100.7870, L503.6030, L501.9520, L4600.0100, L3100.5440, L101.9900 #### [facility] [address] [place], [place], [id number] Vitamin D,25 Hydroxyon 08-22 Vitamin D 25-OH 7.8 ng/mL Normal [facility] Comment on above: Result Comment: Jessenia min D 25(OH) Status Range Deficiency <20 ng/mL (50nmol/L) Insufficiency 20 - 30 ng/mL (50 - 75 nmol/L) Sufficiency 30 - 100 ng/mL (75 - 250 nmol/L) Toxicity >100 ng/mL (>250 nmol/L) Performed By: #### L 505.7010, L503.0105, L503.6550, L100.0100, L506.0250, L506.1000, L3100.7870, L503.6030, L501.9520, L4600.0100, L3100.5440, L101.9900 #### [facility] [address] [place], [place], [id number] Alcohol, Blood (Medical)-Ser umon 05-28-2024 SERUM ETOH < 3.0 Normal [facility] Comment on above: Result Comment: The serum:whole blood ethanol ratio is approximately 1.14 and varies slightly with hematocrit. Medical Alcohol reference interval and critical value in non-tolerant individuals; 50 - 100 Impairment 100 Intoxication 100 - 250 Severe Poisoning 250 - 400 Deep/possible fatal coma Performed By: #### L 501.9100, L500.2500, L505.5000, L100.0100, L700.6800 ####[facility] [address] [place], [address] Basic Metabolic Profile (BMP )on 05-28-2024 BUN/CRE 14.9 RATIO Normal 10-20 [facility] Comment on above: Performed By: #### L 501.9100, L500.2500, L505.5000, L100.0100, L700.6800 ####[facility] [address] [place], [address] CA,Total 9.6 mg/dL Normal 8.5-10.1 [facility] Comment on above: Performed By: #### L 501.9100, L500.2500, L505.5000, L100.0100, L700.6800 ####[facility] [address] [place], [address] Chloride [Moles/Vol] 106 mmol/L Normal 98-107 [facility] Comment on above: Performed By: #### L 501.9100, L500.2500, L505.5000, L100.0100, L700.6800 ####[facility] [address] [place], [address] CO2 [Moles/Vol] 25.0 mmol/L Normal 21.0-32.0 [facility] Comment on above: Performed By: #### L 501.9100, L500.2500, L505.5000, L100.0100, L700.6800 ####[facility] [address] [place], [address] Creatinine [Mass/Vol] 0.67 mg/dL Normal 0.55-1.02 [facility] Comment on above: Result Comment: The validity of the calculated GFR GFRAA in patients over 70 years has not been determined. Clinical correlation is essential. Performed By: #### L 501.9100, L500.2500, L505.5000, L100.0100, L700.6800 ####[facility] [address] [place], [address] ECRCL 134.37 ml/min Normal [facility] Comment on above: Performed By: #### L 501.9100, L500.2500, L505.5000, L100.0100, L700.6800 ####[facility] [address] [place], [address] EST GFR - AA 145 mL/min Normal >60 [facility] Comment on above: Result Comment: Afri can Trinidadian GFR Calc Performed By: #### L 501.9100, L500.2500, L505.5000, L100.0100, L700.6800 ####[facility] [address] [place], [address] GAP 6 Normal 5-15 [facility] Comment on above: Performed By: #### L 501.9100, L500.2500, L505.5000, L100.0100, L700.6800 ####[facility] [address] [place], [address] GFR/1.73 sq M.predicted among non-blacks MDRD (S/P/Bld) [Vol rate/Area] 120 mL/min/{1.73_m2} Normal >60 [facility] Comment on above: Result Comment: Non- GFR Calc Performed By: #### L 501.9100, L500.2500, L505.5000, L100.0100, L700.6800 ####[facility] [address] [place], [address] Glucose [Mass/Vol] 92 mg/dL Normal 74-106 [facility] Comment on above: Performed By: #### L 501.9100, L500.2500, L505.5000, L100.0100, L700.6800 ####[facility] [address] [place], [address] Potassium [Moles/Vol] 3.6 mmol/L Normal 3.5-5.1 [facility] Comment on above: Performed By: #### L 501.9100, L500.2500, L505.5000, L100.0100, L700.6800 ####[facility] [address] [place], [address] Sodium [Moles/Vol] 138 mmol/L Normal 136-145 [facility] Comment on above: Performed By: #### L 501.9100, L500.2500, L505.5000, L100.0100, L700.6800 ####[facility] [address] [place], [address] Urea nitrogen [Mass/Vol] 10 mg/dL Normal 7-18 [facility] Comment on above: Performed By: #### L 501.9100, L500.2500, L505.5000, L100.0100, L700.6800 ####[facility] [address] [place], [address] CBC W/Diff, Automatedon 10-2 Absolute Lymph 2.01 X10 3/uL Normal 0.83-4.51 [facility] Comment on above: Performed By: #### L 501.9100, L500.2500, L505.5000, L100.0100, L700.6800 ####[facility] [address] [place], [address] Absolute Neut 3.2 X10 3/uL Normal 2.0-7.7 [facility] Comment on above: Performed By: #### L 501.9100, L500.2500, L505.5000, L100.0100, L700.6800 ####[facility] [address] [place], [address] Basophils/100 WBC (Bld) 0.5 % Normal 0-1 [facility] Comment on above: Performed By: #### L 501.9100, L500.2500, L505.5000, L100.0100, L700.6800 ####[facility] [address] [place], [address] Eosinophils/100 WBC (Bld) 1.8 % Normal 0-3 [facility] Comment on above: Performed By: #### L 501.9100, L500.2500, L505.5000, L100.0100, L700.6800 ####[facility] [address] [place], [address] Erythrocyte distribution width (RBC) [Ratio] 11.4 % Low 11.6-14.6 [facility] Comment on above: Performed By: #### L 501.9100, L500.2500, L505.5000, L100.0100, L700.6800 ####[facility] [address] [place], [address] Hematocrit (Bld) [Volume fraction] 35.0 % Low 37-46 [facility] Comment on above: Performed By: #### L 501.9100, L500.2500, L505.5000, L100.0100, L700.6800 ####[facility] [address] [place], [address] Hemoglobin (Bld) [Mass/Vol] 11.7 g/dL Low 12.0-15.0 [facility] Comment on above: Performed By: #### L 501.9100, L500.2500, L505.5000, L100.0100, L700.6800 ####[facility] [address] [place], [address] IG% 0.200 Normal 0.0-0.9 [facility] Comment on above: Result Comment: IG% - Immature Granulocytes (promyelocytes, myelocytes and metamyelocytes) > 1% indicates that a LEFT SHIFT is Present. Performed By: #### L 501.9100, L500.2500, L505.5000, L100.0100, L700.6800 ####[facility] [address] [place], [address] Lymphocytes/100 WBC (Bld) 35.2 % Normal 25-45 [facility] Comment on above: Performed By: #### L 501.9100, L500.2500, L505.5000, L100.0100, L700.6800 ####[facility] [address] [place], [address] MCH (RBC) [Entitic mass] 30.2 pg Normal 25.0-35.0 [facility] Comment on above: Performed By: #### L 501.9100, L500.2500, L505.5000, L100.0100, L700.6800 ####[facility] [address] [place], [address] MCHC (RBC) [Mass/Vol] 33.4 g/dL Normal 32-36 [facility] Comment on above: Performed By: #### L 501.9100, L500.2500, L505.5000, L100.0100, L700.6800 ####[facility] [address] [place], [address] MCV (RBC) [Entitic vol] 90.2 fL Normal 78-96 [facility] Comment on above: Performed By: #### L 501.9100, L500.2500, L505.5000, L100.0100, L700.6800 ####[facility] [address] [place], [address] Monocytes/100 WBC (Bld) 6.8 % High 3-6 [facility] Comment on above: Performed By: #### L 501.9100, L500.2500, L505.5000, L100.0100, L700.6800 ####[facility] [address] [place], [address] Neutrophils/100 WBC (Bld) 55.5 % Normal 34-64 [facility] Comment on above: Performed By: #### L 501.9100, L500.2500, L505.5000, L100.0100, L700.6800 ####[facility] [address] [place], [address] Nucleated RBC (Bld) [#/Vol] 0 10*3/uL Normal 0-5 [facility] Comment on above: Performed By: #### L 501.9100, L500.2500, L505.5000, L100.0100, L700.6800 ####[facility] [address] [place], [address] Platelet mean volume (Bld) [Entitic vol] 10.4 fL Normal 6.2-12.0 [facility] Comment on above: Performed By: #### L 501.9100, L500.2500, L505.5000, L100.0100, L700.6800 ####[facility] [address] [place], [address] Platelets (Bld) [#/Vol] 406 10*3/uL Normal 150-450 [facility] Comment on above: Performed By: #### L 501.9100, L500.2500, L505.5000, L100.0100, L700.6800 ####[facility] [id number] [place], [address] RBC (Bld) [#/Vol] 3.88 10*6/uL Low 4.1-4.8 [facility] Comment on above: Performed By: #### L 501.9100, L500.2500, L505.5000, L100.0100, L700.6800 ####[facility] [id number] [place], [address] RDW SD 37.4 fl Normal 35.1-43.9 [facility] Comment on above: Performed By: #### L 501.9100, L500.2500, L505.5000, L100.0100, L700.6800 ####[facility] [id number] [place], [address] WBC (Bld) [#/Vol] 5.7 10*3/uL Normal 4.5-13.0 [facility] Comment on above: Performed By: #### L 501.9100, L500.2500, L505.5000, L100.0100, L700.6800 ####[facility] [id number] [place], [address] Emergency Department Summary on 05-28-2024 Emergency Department Summary [facility] Medical Records Department [address] [place] [address] Emergency Department Summary 05/28/24 MR#: [id number] Acct: [id number] Name: REY TAI Rep #: [id number] : 2005 18 From: Matheus Michel MD PCP: Care Physician,No Primary Status:REG ER Location: ED ADDENDUM by Silvino Aburto DO on 05/29/24 at 0625 The patient was signed out to me while awaiting acceptance to a psychiatric center. 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 She remains hemodynamically stable and is still medically cleared for transfer/placement to a psychiatric center 05/29/24 0625 Cosigner Signature (if applicable): cc: No Primary Care Physician * Signed HPI HPI - Psych History of Present Illness Chief Complaint: Suicidal Narrative Narrative: 18-year-old female presents via EMS with recurrent depression with suicidal ideation. She has past medical history of depression and anxiety, borderline personality disorder with cutting behavior. She has had psychotic features in the past. She was last hospitalized when she lived in [place] earlier this year around September. She states she moved to the area and has been living with her dad since January. She was involved in a heated screaming match with her father. She states that she has been bullied online and stopped, and when she went to talk to him about it, he told her to ignore it. This was not necessarily the answer she wanted to hear, and she began her cutting behavior, and she had suicidal ideation with wanting to cut her throat. The police and EMS were called, because the patient had called the police department and reported that she was suicidal. She had already made cuts to her arm. She does not follow a psychiatrist here, and she ran out of her Celexa that she usually takes 2 to 3 months ago. [facility] Medical History Depression Anxiety Home Medications ???Medication ???Instructions ???Recorded ???Last Taken ???Type No Known/Unobtainable [No Known 10/22/14 Unknown History Home Medications] Allergy/AdvReac Type Severity Reaction Status Date / Time Penicillins Allergy Unknown Verified 05/28/24 18:19 Social History Smoking Status: Never smoker ROS ROS ED ROS Narrative Constitutional: No fever, no chills. HEENT: No sore throat. No neck pain. No loss of vision. No rhinorrhea. Cardiovascular: No chest pain. No palpitations. No pedal edema. Respiratory: No cough, no shortness of breath. Abdominal: No abdominal pain. No nausea. No vomiting. Genitourinary: No dysuria. No hematuria. Musculoskeletal: No myalgias. No arthralgias. Neurologic: No headaches. No dizziness. No lightheadedness. Skin: No rash. No change in color. Made cuts to her arm. Psychiatric: Positive depression and anxiety. Suicidal thoughts and threats made. EXAM Physical Exam Narrative Exam Narrative: Afebrile. Vital signs noted. Regular rate and rhythm. Lungs clear to auscultation bilaterally. Abdomen soft nontender with normal active bowel sounds. Ambulatory to bathroom and back. Multiple superficial linear abrasions to left forearm, no active bleeding. Const Vital Signs: 05/28/24 18:14 05/28/24 20:00 Temperature 98 F Temperature Source Oral Pulse Rate 86 65 Respiratory Rate 18 16 Blood Pressure 114/63 L 112/70 Blood Pressure Mean 80 84 Pulse Ox 97 98 Oxygen Delivery Method Room Air Room Air MDM MDM MDM Narrative Medical decision making narrative: Concern is for suicidal ideation with major depression. She does have borderline personality disorder and previous cutting behavior. No feel that there are any lacerations to so on her forearm. Her wounds will be cleansed and dressed. Medical screening labs were obtained and reviewed. She has been pink slipped by police here. In review of her laboratory work she has normal white count of 5.7 with hemoglobin 11.7 hematocrit 35.0, platelet count normal at 406. RN ordered medical clearance labs and BMP is grossly unremarkable. I will add LFTs. Serum is negative. Ethyl alcohol is negative at less than 3. LFTs remarkable for an AST of 10, low. Urine for drugs of abuse is negative. At this point in time, I feel she is medically cleared for evaluation by the crisis counselor. She is still pending evaluation. Patient will be signed out to the overnight physician, Dr. Silvino Aburto, to make final disposition on this patient which may be anticipated placement in a psychiatric facility for stabilization as she has not been on medications for 2 to 3 months. Disposition is pending. Patient is in stable condition. History Record Review Disc (more content not included)... Normal [facility] Liver Profileon 05-28-2024 Albumin [Mass/Vol] 4.5 g/dL Normal 3.2-5.0 [facility] Comment on above: Performed By: #### L 500.3400 #### [facility] Laboratory [address] [place], [address] ALK P 70 U/L Normal 47-119 [facility] Comment on above: Performed By: #### L [id number] #### [facility] [address] [place], [address] ALT [Catalytic activity/Vol] 14 U/L Normal 13-56 [facility] Comment on above: Performed By: #### L 500.3400 #### [facility] [address] [place], [address] AST [Catalytic activity/Vol] 10 U/L Low 15-37 [facility] Comment on above: Performed By: #### L 500.3400 #### [facility] [address] [place], [address] Bilirubin [Mass/Vol] 0.90 mg/dL Normal 0.20-1.00 [facility] Comment on above: Result Comment: For patients on eltrombopag therapy, use of Dimension [place] TBIL is not recommended. Performed By: #### L 500.3400 #### [facility] [address] [place], [address] Bilirubin.direct [Mass/Vol] 0.21 mg/dL Normal 0.00-0.30 [facility] Comment on above: Performed By: #### L 500.3400 #### [facility] [address] [place], [address] Globulin (S) [Mass/Vol] 3.8 g/dL Normal 2.2-4.2 [facility] Comment on above: Performed By: #### L 500.3400 #### [facility] [address] [place], [address] T PROT 8.3 g/dL High 6.4-8.2 [facility] Comment on above: Performed By: #### L 500.3400 #### [facility] [address] [place], [address] ,Serum,hCG Quali.on 05-28-2024 HCG, SERUM QUAL Negative Normal [facility] Comment on above: Performed By: #### L 501.9100, L500.2500, L505.5000, L100.0100, L700.6800 ####[facility] [address] [place], [address] Urine Drug Screen (VISTA)on 05-28-2024 AMPHETAMINES Negative Normal <1000 ng/mL [facility] Comment on above: Performed By: #### L 500.3400 #### [facility] [address] [place], [address] BARBITIURATES Negative Normal < 200 ng/mL [facility] Comment on above: Performed By: #### L 500.3400 #### [facility] [address] [place], [address] BENZODIAZIPINE Negative Normal < 200 ng/mL [facility] Comment on above: Performed By: #### L 500.3400 #### [facility] [address] [place], [address] COCAINE Negative Normal < 300 ng/mL [facility] Comment on above: Performed By: #### L 500.3400 #### [facility] [address] [place], [address] ECSTACY Negative Normal < 500 ng/mL [facility] Comment on above: Performed By: #### L 500.3400 #### [facility] [address] [place], [address] METHADONE Negative Normal < 300 ng/mL [facility] Comment on above: Performed By: #### L 500.3400 #### [facility] [address] [place], [address] OPIATES Negative Normal < 300 ng/mL [facility] Comment on above: Performed By: #### L 500.3400 #### [facility] [address] [place], [address] PCP Negative Normal < 25 ng/mL [facility] Comment on above: Performed By: #### L 500.3400 #### [facility] [address] [place], [address] THC Negative Normal < 50 ng/mL [facility] Comment on above: Performed By: #### L 500.3400 #### [facility] [address] [place], [address] VISTA UDS PH 5 Normal [facility] Comment on above: Performed By: #### L [id number] #### [facility] [address] [place], [address] Vital Signs Date Time Vital Sign Value Performing Clinician Adela zelaya 01-04-2025 12:48-0400 Body temperature 98.6 [degF] aJja Rosario PROSTHETIC AIDE.VEGETABLE SPECKER Work Phone: [facility] 01-04-2025 12:48-0400 Body weight 59 kg Jaja Rosario PROSTHETIC AIDE.VEGETABLE SPECKER Work Phone: [facility] 01-04-2025 12:48-0400 Diastolic blood pressure 64 mm[Hg] aJja Rosario PROSTHETIC AIDE.VEGETABLE SPECKER Work Phone: [facility] 01-04-2025 12:48-0400 Heart rate 80 /min Jaja Rosario PROSTHETIC AIDE.VEGETABLE SPECKER Work Phone: [facility] 01-04-2025 12:48-0400 Respiratory rate 18 /min Jaja Rosario PROSTHETIC AIDE.VEGETABLE SPECKER Work Phone: [facility] 01-04-2025 12:48-0400 SaO2% (BldA) [Mass fraction] 98 % Jaja Rosario PROSTHETIC AIDE.VEGETABLE SPECKER Work Phone: [facility] 01-04-2025 12:48-0400 Systolic blood pressure 110 mm[Hg] Jaja Rosario PROSTHETIC AIDE.VEGETABLE SPECKER Work Phone: [facility] Encounters Encounter Date Encounter Type Care Provider Facility Start: 01-04-2025 End: 01-04-2025 Office outpatient visit 15 minutes Jaja Rosario PROSTHETIC AIDE.VEGETABLE SPECKER Work Phone: [facility] Comment on above: Acute constipation ( Primary Dx) Start: 01-04-2025 End: 01-04-2025 ambulatory [facility] Facility:[facility] Start: 10-03-2024 Encounter for other preprocedural examination [facility] Start: 09-18-2024 End: 09-18-2024 ambulatory [facility] Facility:[facility] Start: 09-02-2024 End: 09-02-[address] [facility] Start: 08-22-2024 End: 08-22-2024 ambulatory Chiquita Buenrostro [facility] Facility:[facility] Start: 08-08-2024 End: 08-09-2024 ambulatory Erika PERDUE Facility:[facility] Start: 07-08-2024 End: 08-06-2024 ambulatory Erika PERDUE Facility:[facility] Start: 06-25-2024 End: 07-06-2024 ambulatory Erika PERDUE Facility:[facility] Start: 05-28-2024 End: 05-29-2024 Emergency department patient visit Matheus Michel Facility:[facility] Plan of Treatment Date Care Activity Detail Author Start: 04-07-2025 Influenza vaccination Influenz a Vaccine (Season Ended) [facility] Start: 04-07-2024 Covid-19 Vaccine () Covid-19 Vaccine () [facility] Start: 2023 Anxiety Screening Anxiety Screening [facility] Start: 2023 Depression Screening Depression Scre ening [facility] Start: 2023 GC (Gonorrhea) Scree gamaliel (18-24) GC (Gonorrhea) Screening (18-24) [facility] Start: 2023 Hepatitis C screening Hepatitis C Sc reening [facility] Start: 2023 HIV screening HIV Screening [facility] Start: 2023 Screening for Chlamy angelina trachomatis Chlamydia Screening () [facility] Start: 2021 Meningococcal B Vacc ine (1 of 2 - Standard) Meningococcal B Vaccine (1 of 2 - Standard) [facility] Start: 2020 HPV Vaccine (1 - 3-d ose series) HPV Vaccine (1 - 3-dose series) [facility] Start: 2019 Peds To Adult Transi tion Annual Assessment Peds To Adult Transition Annual Assessment [facility] Start: 2017 Peds To Adult Transi tion Initial Discussion Peds To Adult Transition Initial Discussion [facility] Start: 2016 Urine microalbumin profile DTa P,Tdap,Td Vaccine (6 - Tdap) [facility] Immunizations Immunization Date Immunization Notes Care Provider Rosie tellez 2010 diphtheria, tetanus toxoids and acellular pertussis vaccine Jaja Rosario PROSTHETIC AIDE.VEGETABLE SPECKER Work Phone: [facility] 2010 influenza virus vaccine, live, attenuated, for intranasal use Jaja Hernandezbury PROSTHETIC AIDE.VEGETABLE SPECKER Work Phone: [facility] 2010 measles, mumps and rubella virus vaccine [facility] PROSTHETIC AIDE.VEGETABLE SPECKER Work Phone: [facility] 2010 poliovirus vaccine, inactivated [facility] PROSTHETIC AIDE.VEGETABLE SPECKER Work Phone: [facility] 2010 varicella virus vaccine [facility] PROSTHETIC AIDE.VEGETABLE SPECKER Work Phone: [facility] 2010 influenza virus vaccine, unspecified formulation [facility]aja [facility] PROSTHETIC AIDE.VEGETABLE SPECKER Work Phone: [facility] 08-11-2009 varicella virus vaccine [facility] PROSTHETIC AIDE.VEGETABLE SPECKER Work Phone: [facility] 10-18-2007 diphtheria, tetanus toxoids and acellular pertussis vaccine [facility] PROSTHETIC AIDE.VEGETABLE SPECKER Work Phone: [facility] 10-18-2007 haemophilus influenz ae type b vaccine, HbOC conjugate [facility] PROSTHETIC AIDE.VEGETABLE SPECKER Work Phone: [facility] 10-18-2007 pneumococcal conjuga te vaccine, 7 valent [facility] PROSTHETIC AIDE.VEGETABLE SPECKER Work Phone: [facility] 10-18-2007 poliovirus vaccine, inactivated [facility] PROSTHETIC AIDE.VEGETABLE SPECKER Work Phone: [facility] 08-16-2006 measles, mumps and rubella virus vaccine [facility] PROSTHETIC AIDE.VEGETABLE SPECKER Work Phone: [facility] 05-24-2006 diphtheria, tetanus toxoids and acellular pertussis vaccine [facility] PROSTHETIC AIDE.VEGETABLE SPECKER Work Phone: [facility] 05-24-2006 haemophilus influenz ae type b vaccine, HbOC conjugate [facility] PROSTHETIC AIDE.VEGETABLE SPECKER Work Phone: [facility] 05-24-2006 pneumococcal conjuga te vaccine, 7 valent Jaja [facility] PROSTHETIC AIDE.VEGETABLE SPECKER Work Phone: [facility] 02-24-2006 diphtheria, tetanus toxoids and acellular pertussis vaccine [facility] PROSTHETIC AIDE.VEGETABLE SPECKER Work Phone: [facility] 02-24-2006 haemophilus influenz ae type b vaccine, HbOC conjugate [facility] PROSTHETIC AIDE.VEGETABLE SPECKER Work Phone: [facility] 02-24-2006 hepatitis B vaccine, pediatric or pediatric/adolescent dosage Jaja Pend[facility] PROSTHETIC AIDE.VEGETABLE SPECKER Work Phone: [facility] 02-24-2006 pneumococcal conjuga te vaccine, 7 valent Jaja [facility] PROSTHETIC AIDE.VEGETABLE SPECKER Work Phone: [facility] 02-24-2006 poliovirus vaccine, inactivated [facility] PROSTHETIC AIDE.VEGETABLE SPECKER Work Phone: [facility] 2005 DTaP-hepatitis B and poliovirus vaccine [facility] PROSTHETIC AIDE.VEGETABLE SPECKER Work Phone: [facility] Work Phone: 2005 haemophilus influenz ae type b vaccine, HbOC conjugate [facility] PROSTHETIC AIDE.[facility] Work Phone: [facility] 2005 pneumococcal conjuga te vaccine, 7 valent Jaja [facility] PROSTHETIC AIDE.[facility] Work Phone: [facility] Work Phone: 2005 hepatitis B vaccine, pediatric or pediatric/adolescent dosage [facility] PROSTHETIC AIDE.[facility] Work Phone: [facility] Payers Date Payer Category Payer Self-pay 2024 Medicaid [employer] [facility] [id number] 2024 Unknown [id number] Unknown [id number] Unknown [id number] Unknown [id number] Unknown [id number] Unknown [id number] Unknown [id number] Unknown [id number] Unknown [id number] Social History Date Type Detail Facility Tobacco smoking status NHIS Never smoked tobacco [facility] History of tobacco use Passive smoker [facility] Start: 01-04-2025 Alcoholic beverage intake Not Asked [facility] Start: 01-04-2025 History of Social function [facility] Start: 01-04-2025 Tobacco use panel [facility] Start: 2005 Sex assigned at Not on file C [facility] Functional Status Date Assessment Result Facility 12-02-2014 Are you deaf, or do you have serious difficulty hearing No 12/02/2014 2:08 PM Lashay [place] No [facility] 12-02-2014 Are you blind, or do you have serious difficulty seeing, even when wearing glasses No 12/02/2014 2:08 PM Lashay [place] No [facility] 12-02-2014 Do you have serious difficulty walking or climbing stairs No 12/02/2014 2:08 PM Lashay [place] No [facility] 12-02-2014 Do you have difficul ty dressing or bathing No 12/02/2014 2:08 PM EDT [place]Jarett[place]lton [place] No [facility] Mental Status Date Assessment Result Facility 12-02-2014 Because of a physica l, mental, or emotional condition, do you have serious difficulty concentrating, remembering, or making decisions Yes 12/02/2014 2:08 PM EDT Lashay Quintero [place] Yes [facility] Progress note 01-04-2025 Note Date & Type Note Facility 01-04-2025 Note HNO ID: [id number] Author: JAJA ROSARIO APRN.VEGETABLE SPECKER Service: ? Author Type: Nurse Practitioner Type: Progress Notes Filed: 01/04/2025 13:11 Note Text: [facility] Subjective Rey Tai is a 19 year old female. Patient presents with: Constipation: X 5 days HPI Nontoxic-appearing 19-year-old female presents urgent care chief complaint constipation. Duration of symptoms 5 days. Associated symptoms constipation. Presents today for evaluation. OTC medications none. Denies any vomiting abdominal pain dysuria. No rectal pain blood in the stool. Denies chance of . Past medical history prescription medications allergies reviewed. Review of Systems Constitutional: Negative for chills, diaphoresis, fatigue and fever. HENT: Negative for congestion, drooling, ear discharge, ear pain, rhinorrhea, sinus pressure, sinus pain, sneezing, sore throat and trouble swallowing. Eyes: Negative for pain, discharge, redness, itching and visual disturbance. Respiratory: Negative for cough, chest tightness, shortness of breath and wheezing. Cardiovascular: Negative for chest pain. Gastrointestinal: Positive for constipation. Negative for abdominal distention, abdominal pain, blood in stool, diarrhea, nausea and vomiting. Genitourinary: Negative for difficulty urinating and dysuria. Musculoskeletal: Negative for arthralgias, joint swelling, neck pain and neck stiffness. Skin: Negative for rash. Neurological: Negative for dizziness, weakness, numbness and headaches. Objective BP 110/64 Pulse 80 Temp 37 ?C (98.6 ?F) (Tympanic) Resp 18 Wt 59 kg (130 lb 1.1 oz) SpO2 98% Physical Exam Constitutional: Appearance: Normal appearance. HENT: Head: Normocephalic. Jaw: No trismus, tenderness, swelling or pain on movement. Nose: No congestion. Mouth/Throat: Mouth: Mucous membranes are moist. Pharynx: Oropharynx is clear. Uvula midline. No oropharyngeal exudate or posterior oropharyngeal erythema. Eyes: Conjunctiva/sclera: Conjunctivae normal. Cardiovascular: Rate and Rhythm: Normal rate. Pulmonary: Effort: Pulmonary effort is normal. Breath sounds: Normal breath sounds. No wheezing, rhonchi or rales. Abdominal: Palpations: Abdomen is soft. Tenderness: There is no abdominal tenderness. There is no right CVA tenderness, left CVA tenderness, guarding or rebound. Musculoskeletal: General: Normal range of motion. Cervical back: Normal range of motion and neck supple. No edema or erythema. No pain with movement. Normal range of motion. Lymphadenopathy: Cervical: No cervical adenopathy. Skin: General: Skin is warm. Findings: No rash. Neurological: General: No focal deficit present. Mental Status: She is alert and oriented to person, place, and time. Mental status is at baseline. {ASSESSMENT/PLAN: 1. Acute constipation - ICD9: 564.00, ICD10: K59.00 Diagnosed with acute constipation. Encourage increase fluids fiber reviewed and MiraLAX. Patient was educated on supportive therapies. Patient will follow up with primary care provider as needed. Patient was instructed to immediately proceed to emergency room for any new, worsening, or symptoms lasting longer than anticipated. The patient's clinical presentation is otherwise unremarkable at this time. Based on exam and clinical finding, the patient is stable for discharge. Plan of care was discussed with patient. Patient verbalizes understanding and agrees to plan of care. This note was generated using Emme E2MS software. It may contain errors in wording, punctuation, or spelling. Jaja Rosario APRN.VEGETABLE SPECKER History and Record Review Clinical information obtained from an independent historian. History obtained from or confirmed by: parent. External record(s) reviewed: prior outpatient record. Disposition The patient was discharged. OTC Medications were advised: Procedures [facility] History of Present illness Narrative 01-04-2025 Jaja Rosario APRN.KARLI - 01/04/2025 12:55 PM EDT Note Date & Type Note Facility 01-04-2025 History of Presen t illness Narrative [facility] Subjective Rey Tai is a 19 year old female. Patient presents with: Constipation: X 5 days HPI Nontoxic-appearing 19-year-old female presents urgent care chief complaint constipation. Duration of symptoms 5 days. Associated symptoms constipation. Presents today for evaluation. OTC medications none. Denies any vomiting abdominal pain dysuria. No rectal pain blood in the stool. Denies chance of . Past medical history prescription medications allergies reviewed. Review of Systems Constitutional: Negative for chills, diaphoresis, fatigue and fever. HENT: Negative for congestion, drooling, ear discharge, ear pain, rhinorrhea, sinus pressure, sinus pain, sneezing, sore throat and trouble swallowing. Eyes: Negative for pain, discharge, redness, itching and visual disturbance. Respiratory: Negative for cough, chest tightness, shortness of breath and wheezing. Cardiovascular: Negative for chest pain. Gastrointestinal: Positive for constipation. Negative for abdominal distention, abdominal pain, blood in stool, diarrhea, nausea and vomiting. Genitourinary: Negative for difficulty urinating and dysuria. Musculoskeletal: Negative for arthralgias, joint swelling, neck pain and neck stiffness. Skin: Negative for rash. Neurological: Negative for dizziness, weakness, numbness and headaches. Objective BP 110/64 Pulse 80 Temp 37 C (98.6 F) (Tympanic) Resp 18 Wt 59 kg (130 lb 1.1 oz) SpO2 98% Physical Exam Constitutional: Appearance: Normal appearance. HENT: Head: Normocephalic. Jaw: No trismus, tenderness, swelling or pain on movement. Nose: No congestion. Mouth/Throat: Mouth: Mucous membranes are moist. Pharynx: Oropharynx is clear. Uvula midline. No oropharyngeal exudate or posterior oropharyngeal erythema. Eyes: Conjunctiva/sclera: Conjunctivae normal. Cardiovascular: Rate and Rhythm: Normal rate. Pulmonary: Effort: Pulmonary effort is normal. Breath sounds: Normal breath sounds. No wheezing, rhonchi or rales. Abdominal: Palpations: Abdomen is soft. Tenderness: There is no abdominal tenderness. There is no right CVA tenderness, left CVA tenderness, guarding or rebound. Musculoskeletal: General: Normal range of motion. Cervical back: Normal range of motion and neck supple. No edema or erythema. No pain with movement. Normal range of motion. Lymphadenopathy: Cervical: No cervical adenopathy. Skin: General: Skin is warm. Findings: No rash. Neurological: General: No focal deficit present. Mental Status: She is alert and oriented to person, place, and time. Mental status is at baseline. {ASSESSMENT/PLAN: 1. Acute constipation - ICD9: 564.00, ICD10: K59.00 Diagnosed with acute constipation. Encourage increase fluids fiber reviewed and MiraLAX. Patient was educated on supportive therapies. Patient will follow up with primary care provider as needed. Patient was instructed to immediately proceed to emergency room for any new, worsening, or symptoms lasting longer than anticipated. The patient's clinical presentation is otherwise unremarkable at this time. Based on exam and clinical finding, the patient is stable for discharge. Plan of care was discussed with patient. Patient verbalizes understanding and agrees to plan of care. This note was generated using [employer] E2[employer] software. It may contain errors in wording, punctuation, or spelling. Jaja Rosario APRN.[employer] History and Record Review Clinical information obtained from an independent historian. History obtained from or confirmed by: parent. External record(s) reviewed: prior outpatient record. Disposition The patient was discharged. OTC Medications were advised: Procedures documented in this encounter [facility] Clinical Note 09-18-2024 Note Date & Type Note Facility 09-18-2024 Note [facility] Medical Records Department [address] [place] [id number] History Physical Exam 09/18/24 0825 MR#: [id number] Acct: [id number] Name: REY TAI Rep #: [id number] : 2005 19 From: Ama Acosta MD PCP: Chiquita Buenrostro DO Status:[facility] Location: [place] [address] History and Physical Date of Admission: 09/18/24 Date of Service: 09/02/24 MR#: [id number] Acct: [id number] Name: REY TAI Rep #: [id number] : 2005 Provider: Dr. Ama Acosta MD Age/Sex: 19/F Location: [facility] Status: Signed Intake Vital Signs 06/26/2412:11 09/02/2508:26 Height 5 ft 10 in 5 ft 10 in Weight: 143 lb BMI 20.5 BP 110/73 Blood Pressure Location Rt brachial Position Sitting Respiration 18 Pulse 82 Pulse Source Monitor Pulse Oximetry (%) 97 Oxygen Delivery Method room air Intake Visit Reasons: EGD- GERD Chief Complaint: egd/gerd Is patient in pain?: No Allergies Penicillins Allergy (Verified 09/02/24 09:27) Unknown Medications ???Medication ???Instructions ???Recorded ???Confirmed ???Type citalopram 20 mg tablet (Celexa) 40 mg PO DAILY 07/17/24 09/02/24 History ergocalciferol (vitamin D2) 50 mcg 50 mcg PO QDAY 09/02/24 09/02/24 History (2,000 unit) capsule ferrous sulfate 325 mg (65 mg 325 mg PO QDAY 09/02/24 09/02/24 History iron) tablet (FeroSul) propranolol 20 mg tablet 20 mg PO DAILY 09/02/24 09/02/24 History omeprazole 40 mg capsule,delayed 40 mg PO QDAY #30 caps 09/03/24 09/03/24 Rx release PFSH Medical History (Updated 09/02/24 @ 09:25 by Betty Mock) History of bulimia nervosa Borderline personality disorder PTSD (post-traumatic stress disorder) Major depressive disorder, recurrent severe without psychotic features Family History (Updated 09/02/24 @ 09:26 by Betty Mock) Mother Asthma Diabetes HypertensionFather Diabetes Social History Smoking Status: Never smoker HPI HPI HPI: 19-year-old female presents for EGD/reflux. Patient states that she did previously have an EGD in 2019 x 2 per patient unsure if it was EOE as patient had issues with bulimia at the time as well and recommended to have a rescope once that has been improved. Sound like patient did get the oral budesonide this was all in [place]. Currently patient states that in the last week she has been having bad GERD symptoms with burning up her esophagus daily along with nausea. Patient states that prior to that she was having an acid feeling in her throat about 4 days out of the week. Patient is not on any medication for this. Patient does like marinara sauce/spaghetti. Patient states she can get the symptoms worse at night. ROS General General: Yes weight change and fatigue; No appetite, colon cancer or breast cancer HEENT HEENT: No difficulty swallowing, eye injury, eye surgery, swollen glands or hoarseness Endo Endocrine: No thyroid disease, diabetes mellitus, thyroid cancer, Hair loss, heat intolerance or cold intolerance Skin Skin: Yes changing moles; No rash Musc Musculoskeletal: Yes back problems; No arthritis, rheumatoid arthritis, gout or joint pain Cardio Cardiovascular: Yes murmur; No pacemaker, heart disease, atrial fibrillation, high blood pressure, heart attack, heart stent, palpitations, shortness of breat with exertion or chest pain Psych Psychiatric: Yes depression and anxiety; No hearing voices Resp Respiratory: Yes shortness of breath, No sleep apnea, No cough, No COPD, No asthma, No emphysema and No wheezing Gastro Gastrointestinal: Yes abdominal pain, Yes nausea or vomiting, Yes diarrhea, Yes constipation, No blood in stool, Yes acid reflux, Yes hemorrhoids, No ulcers, No gallbladder problem and Yes black,tarry stools Maxx Hematologic: No blood thinners, No blood disorders, No bleeding, Yes anemia and No blood clots Neuro Neurologic: No numbness and No tingling Exam Const General: cooperative, healthy appearing, comfortable and no acute distress Neck Neck: normal visual inspection Resp Effort Inspection: normal respiratory effort Cardio Rate: regular rate GI Inspection: non-distended Palpation: soft, no guarding and nontender Skin General: no rashes or lesions noted Neuro General: patient oriented x3 Psych Affect: normal affect Assessment and Plan Assessment and Plan (1) Acid reflux: Status: Acute Orders: Orders EGD 09/18/24 Traci PERDUE, PA-C Medications: New omeprazole swallow whole; do not crush, chew, dissolve, cut, break 40 mg PO QDAY [address] Ama Acosta MD (more content not included)... [facility] Evaluation note Note Date & Type Note Facility Evaluation note Diagnosis Acute constipation- Primary Unspecified constipation documented in this encounter [facility] Summary Purpose Family History No Family History Records FoundNo Family History Records Found Advance Directives No Advanced Directives Records FoundNo Advanced Directives Records Found Additional Source Comments INFORMATION SOURCE (unrecogn ized section and content) DATE CREATED AUTHOR 10/05/2024 [facility] DATE CREATED AUTHOR AUTHOR'S ORGANIZ ATION 01/05/2025 [facility] Source Comments (unrecognize d section and content) In the event this informatio n is protected by the Federal Confidentiality of Alcohol and Drug Abuse Patient Records regulations: The Federal rules restrict any use of the information to criminally investigate or prosecute any alcohol or drug abuse patient.[facility] Reason for Visit (unrecogniz ed section and content) Reason Comments Constipation X 5 days FOR RECORDS PERTAINING TO PATIENTS WHO ARE OR HAVE BEEN ENROLLED IN A CHEMICAL DEPENDENCY/SUBSTANCEABUSE PROGRAM, SOME INFORMATION MAY BE OMITTED. This clinical summary was aggregated from multiple sources. Caution should be exercised in using it in the provision of clinical care. This summary normalizes information from multiple sources, and as a consequence, information in this document may materially change the coding, format and clinical context of patient data. In addition, data may be omitted in some cases. CLINICAL DECISIONS SHOULD BE BASED ON THE PRIMARY CLINICAL RECORDS. [employer] provides no warranty or guarantee of the accuracy or completeness of information in this document.
[2025-01-25 17:06] LABS: Absolute Lymphocyte Count 2.49 X10^3/uL (0.83-4.51); Absolute Neutrophil Count 3.8 X10^3/uL (2.0-7.7); Basophil# 0.04 X10^3/uL; Basophil% 0.6 % (0-1); Eosinophil# 0.06 X10^3/uL; Eosinophils% 0.9 % (0-5); Hemoglobin 12.5 g/dL (12.0-15.0); Lymphocyte # 2.49 X10^3/ul (0.83-4.51); Mean Corp Hgb Conc 33.8 g/dL (32-36); Mean Corpuscular Hgb 30.3 pg (27.0-32.0); Mean Corpuscular Volume 89.8 fL (81-99); Mean Platelet Vol. 11.3 fl (6.2-12.0); Monocyte# 0.53 X10^3/uL; Monocyte% 7.7 % (0-10); NRBC Flagged by Analyzer 0 % (0-5); Neutrophil # 3.78 X10^3/uL (2.7-7.7); Neutrophil % 54.5 % (47-70); Platelet Count 398 K/mm3 (150-450); RBC Distribution Width CV 11.3 % (11.6-14.6); RBC Distribution Width SD 36.7 fl (35.1-43.9); Red Blood Count 4.12 M/mm3 (4.2-5.4); White Blood Count 6.9 K/mm3 (4.4-11.0)
[2025-01-25 17:18] LABS: Amphetamine Urine NEGATIVE (<1000 ng/mL); Barbiturate Urine NEGATIVE (< 200 ng/mL); Benzodiazepine Urine NEGATIVE (< 200 ng/mL); Buprenorphine Urine NEGATIVE (< 200 ng/mL); Cocaine Urine NEGATIVE (< 300 ng/mL); Fentanyl, Urine NEGATIVE; Methadone Urine NEGATIVE (< 300 ng/mL); Opiates Urine NEGATIVE (< 300 ng/mL); Oxycodone, Urine NEGATIVE (< 100 ng/mL); PCP Urine NEGATIVE (< 25 ng/mL); THC Urine NEGATIVE (< 50 ng/mL)
[2025-01-25 17:19] LABS: Alcohol, Blood (Medical)-Serum < 10.1 mg/dL (<=10.0); Anion Gap 14 (5-15); BUN 9 mg/dL (4-19); BUN/Creat Ratio 10.2 RATIO (10-20); Calcium,Total 9.7 mg/dL (7.6-11.0); Carbon Dioxide 24.4 mmol/L (21.0-32.0); Chloride 103 mmol/L (98-108); Creatinine, Serum 0.84 mg/dL (0.70-1.20); EST Glomerular Filtration Rate 102 (>60); Estimated Creatinine Clearance 94.11 ml/min (50-250); Glucose 115 mg/dL (70-99); Potassium 3.7 mmol/L (3.3-5.1); Sodium Level 141 mmol/L (133-145)
[2025-01-25 17:31] LABS: Internal QC Validated? YES +Cl - CLEAR BKGD; Pregnancy, Serum, hCG Quali. NEGATIVE Negative; Record Kit Lot#, Serum Preg. 947241
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
--- NOTE | 2025-01-25 20:00 | CM.ED ---
Social Work: Industrial Sweeper Cleaner informed patient of placement and although patient expressed disappointment in not being able to go home, patient understood and was agreeable. Patient requesting not to be placed in [place]. emergency worker will share patient preference with Crisis.
[2025-01-25] MEDS: hydrOXYzine PAM 25 MG Capsule PO (22:38)
[2025-01-25 22:45] VITALS: BP 116/63; PULSE 68; RESP 14; O2SAT 99
--- NOTE | 2025-01-25 22:45 | ED.RN ---
Pt refuses food or drink, offered several times. Pt sobbing loudly, states she is upset, afraid boyfriend is breaking up with her. This RN offered reassurance, but also reminded her that cell phone would be removed from room if increased behaviors were observed related to cell phone use. Pt voiced understanding.
[2025-01-26 02:54] VITALS: BP 118/61; PULSE 55; RESP 16; TEMP 37.1; O2SAT 98
== END 2025-01-26 03:20 ==
PROVIDERS: Emergency Provider Emergency Medicine; PCP Family Medicine; Visit Provider Emergency Medicine
DX: S10.91XA Abrasion of unspecified part of neck, initial encounter (principal); F60.3 Borderline personality disorder; F33.2 Major depressive disorder, recurrent severe without psychotic features; X83.8XXA Intentional self-harm by other specified means, initial encounter; F41.9 Anxiety disorder, unspecified; F43.10 Post-traumatic stress disorder, unspecified; F90.9 Attention-deficit hyperactivity disorder, unspecified type; D64.9 Anemia, unspecified; Z91.51 Personal history of suicidal behavior; Z79.899 Other long term (current) drug therapy; Z87.891 Personal history of nicotine dependence
CPT/HCPCS: 80048; 80307; 82077; 84703; 85025; 93005; 99284

== ENCOUNTER → 2025-03-25 | Outpatient (CLI) | payer MEDICAID, SELFPAY ==
--- NOTE | 2025-03-25 09:36 | RAD_ITS ---
PROCEDURE: SCOLIOSIS 1 VIEW 03/25/2025 REASON FOR EXAM: PAIN TECHNIQUE: SCOLIOSIS 1 VIEW COMPARISON: None FINDINGS: There is levocurvature of the lumbar region with less than 10 degrees of variance, which can indicate spasm. Vertebral body height is maintained. Mineralization is normal. RAD/Scoliosis 1 view IMPRESSION: There is levocurvature of the lumbar region with less than 10 degrees of varian ce, which can indicate spasm. Reading Location: [facility]
== END | disposition home or self-care (01) ==
LOC: RAD 09:29
DX: R52 Pain, unspecified (principal)
CPT/HCPCS: 72081

== ENCOUNTER 2025-05-13 12:41 | Emergency (ER) | payer MEDICAID, SELFPAY ==
[2025-05-13 12:42] VITALS: BP 104/69; PULSE 55; RESP 18; TEMP 36.9; O2SAT 98; BMI 17.4
[2025-05-13 12:57] VITALS: O2SAT 99
[2025-05-13 13:33] VITALS: O2SAT 98
--- NOTE | 2025-05-13 13:33 | EKG12_ITS ---
Test Reason : Blood Pressure : */* mmHG Vent. Rate : 64 BPM Atrial Rate : 64 BPM P-R Int : 168 ms QRS Dur : 74 ms QT Int : 380 ms P-R-T Axes : 63 85 71 degrees QTcB Int : 392 ms Normal sinus rhythm with sinus arrhythmia Normal ECG Confirmed by GLORIA POTTS, PRABHU ([id number]), rewrite editor MEGHA BUTLER ([id number]) on 05/14/2025 1:25:58 PM Referred By: HENNY Confirmed By: PRABHU CASTRO MD
[2025-05-13 14:09] LABS: Hematocrit 34.2 % (37-47); Hemoglobin 11.2 g/dL (12.0-15.0); Immature Granulocytes Count 0.020 X10^3/uL (0.0-0.0); Mean Corp Hgb Conc 32.7 g/dL (32-36); Mean Corpuscular Volume 91.2 fL (81-99); Mean Platelet Vol. 10.2 fl (6.2-12.0); NRBC Flagged by Analyzer 0 % (0-5); Platelet Count 372 K/mm3 (150-450); RBC Distribution Width CV 11.6 % (11.6-14.6); RBC Distribution Width SD 38.8 fl (35.1-43.9); Red Blood Count 3.75 M/mm3 (4.2-5.4); White Blood Count 6.6 K/mm3 (4.4-11.0)
[2025-05-13 14:20] LABS: D-Dimer Quantitative (DVT/PE) 0.39 FEU/ug/m (0.27-0.49)
[2025-05-13 14:33] LABS: Anion Gap 11 (5-15); BUN 9 mg/dL (4-19); BUN/Creat Ratio 18.2 RATIO (10-20); Calcium,Total 9.3 mg/dL (7.6-11.0); Carbon Dioxide 23.4 mmol/L (21.0-32.0); Chloride 106 mmol/L (98-108); Estimated Creatinine Clearance 163.88 ml/min (50-250); Glucose 87 mg/dL (70-99); Potassium 4.0 mmol/L (3.3-5.1)
--- NOTE | 2025-05-13 14:35 | RAD_ITS ---
PROCEDURE: CHEST PA AND LATERAL 05/13/2025 REASON FOR EXAM: HEMOPTYSIS TECHNIQUE: Procedure Code: RADCXR Modality: DX Procedure: CHEST PA AND LATERAL COMPARISON: None FINDINGS: Hardware: EKG electrodes are seen. Heart: The heart size is normal. Mediastinum: The mediastinal contour is unremarkable. Lungs: The lungs are clear. Bones: The bones are unremarkable. RAD/Chest PA and Lateral IMPRESSION: NO ACUTE FINDINGS. Reading Location: [id number]
[2025-05-13 14:41] VITALS: PULSE 63; RESP 17; O2SAT 98
--- NOTE | 2025-05-13 15:22 | EDS_ITS ---
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 States that she was sick last week with maybe the flu. She is better and then the last 4 to 5 days has had worsening cough with mucus production has become more bloody. States the coughing and hemoptysis is mostly at nighttime. Denies any fevers. Does have night sweats. Denies any chest pain at this time. States that sputum looks like mucus that is covered in red blood. Denies any recent travel or unintentional weight loss. Denies any history or known exposure to tuberculosis. Initially went to urgent care but was sent to the ER for further evaluation. Denies any swelling of her legs. Has history of any bleeding disorders. Denies history of DVT or PE. ROS [facility] ED Constitutional Constitutional ED: Reports sweats; Denies chills or fever(s) Cardiovascular Cardiovascular: Denies chest pain or palpitations Respiratory/Chest Respiratory/Chest: Reports cough; Denies dyspnea Gastrointestinal Gastrointestinal: Denies abdominal pain, nausea or vomiting Neurologic Neurologic: Denies paresthesias or weakness Hematologic/Lymphatic Hematologic/Lymphatic: Denies easy bleeding or easy bruising [facility] Medical History Wears glasses Depression Anxiety Marijuana use Alcohol use Anemia Fatty liver Easy bruising Back pain Injury of head and neck Restless legs Migraine headache Dietary restriction History of IBS Gastric reflux Former smoker History of edema History of irregular heartbeat History of bulimia nervosa Borderline personality disorder PTSD (post-traumatic stress disorder) Major depressive disorder, recurrent severe without psychotic features Home Medications ?Medication ?Instructions ?Recorded ?Last Taken ?Type ergocalciferol (vitamin D2) 50 mcg 50 mcg PO WE LOW TAMIN D 09/02/24 Unknown History (2,000 unit) capsule ferrous sulfate 325 mg (65 mg 325 mg PO QDAY SUPPLEMEN T 09/02/24 04/28/25 History iron) tablet (FeroSul) albuterol sulfate 90 mcg/actuation 1 - 2 puff inhalati on Q4H PRN PRN 05/13/25 Unknown Rx aerosol inhaler (Ventolin HFA) Wheezing or coughing fi ts #1 inh benzonatate 200 mg capsule 200 mg PO TID PRN cough #20 caps 05/13/25 Unknown Rx guaifenesin 600 mg tablet, 1,200 mg PO TID PRN congest ion 05/13/25 05/12/25 History extended release 12 hr (Mucinex) lorazepam 0.5 mg tablet 0.5 mg PO DAILY PRN anxiety 05/13/25 05/10/25 History Allergy/AdvReac Type Severity Reaction Status Date / Time Penicillins Allergy Unknown Verified 05/13/25 12:44 Family History Mother Asthma Diabetes Hypertension Father Diabetes Surgical History History of esophagogastroduodenoscopy (EGD) Social History Smoking Status: Current every day smoker tobacco type: cigarettes and e- cigarettes EXAM Physical Exam Const Vital Signs: 05/13/25 12:42 05/13/25 12:57 05/13/25 13:33 Temperature 98.4 F Temperature Source Oral Pulse Rate 55 L Respiratory Rate 18 Respiratory Effort Normal Blood Pressure 104/69 Blood Pressure Mean 80 Pulse Ox 98 98 Oxygen Delivery Method Room Air Room Air Room Air 05/13/25 14:41 05/13/25 15:35 Temperature 97.6 F L Temperature Source Pulse Rate 63 75 Respiratory Rate 17 20 H Respiratory Effort Blood Pressure 106/67 Blood Pressure Mean 80 Pulse Ox 98 100 Oxygen Delivery Method Room Air Positive well nourished and well developed General Appearance ED: well developed and NAD; Negative for pallor HEENT Reports moist mucous membranes Eyes PERRL General Eye ED: Negative for pale conjunctiva Neck no lymphadenopathy and supple Resp normal respiratory effort and clear to auscultation bilaterally Auscultation: Negative for rales, rhonchi or wheezes Cardio no murmurs Rate: regular rate Rhythm: regular rhythm GI non-tender and non-distended Extremity normal to inspection Neuro oriented x3 Sensorium / Orientation: alert Motor Exam: Negative for general weakness Psych mental status grossly normal Skin General Skin Exam: Negative for pallor Rashes: no rashes MDM MDM MDM Narrative Medical decision making narrative: Patient evaluated for ongoing cough that is worse in the evening/night and associate hemoptysis. Patient was nontoxic no acute distress. Differential includes not limited to pulmonary emboli, bronchitis, mass, tuberculosis and bleeding disorder. Patient is otherwise low risk for pulmonary emboli 98% on room air so D-dimer is obtained. This is normal so low suspicion for PE as a cause for hemoptysis. CBC and CMP normal. EKG shows normal sinus rhythm with no ischemic changes. Do not think she requires further cardiac workup. Chest x-ray viewed by myself as radiology does not show any acute findings. Patient counseled likely this is bronchitis causing her hemoptysis. Is given a prescription for Tessalon Perles as well as albuterol inhaler sounds if she is having episodes of bronchospasm at night. She does not have any significant coughing while in the emergency room and has clear breath sounds. Do not think she requires antibiotics at this time. She is not reporting fever and does not have a leukocytosis or x-ray findings concerning for pneumonia. Encouraged to follow-up with primary care doctor. Given return precautions. Will continue taking Mucinex. Discharged home in stable condition. Lab Data Attestation: I reviewed the patient's lab results. Labs: Laboratory Results - last 24 hr 05/13/25 14:03 WBC 6.6 RBC 3.75 L Hgb 11.2 L Hct 34.2 L MCV 91.2 MCH 29.9 MCHC 32.7 RDW Std Deviation 38.8 RDW Coeff of Valentino 11.6 Plt Count 372 MPV 10.2 Immature Gran % (Auto) 0.300 Neut % (Auto) 62.8 Lymph % (Auto) 29.2 [place] % (Auto) 5.4 Eos % (Auto) 1.7 Baso % (Auto) 0.6 Absolute Neuts (auto) 4.2 Absolute Lymphs (auto) 1.94 Nucleated RBC % 0 D-Dimer Quant (PE/DVT) 0.39 Sodium 141 Potassium 4.0 Chloride 106 Carbon Dioxide 23.4 Anion Gap 11 BUN 9 Creatinine 0.48 L Estim Creat Clear Calc 163.88 Est GFR (MDRD) Non-Af 140 BUN/Creatinine Ratio 18.2 Glucose 87 Calcium 9.3 Radiography Diagnostic Testing: Clinical Impression(s) from Imaging Studies Chest X-Ray 05/13/25 14:35 IMPRESSION: NO ACUTE FINDINGS. Reading Location: [facility] Rhythm Strip Rhythm Strip: Sinus Rhythm Rate: 64 Ectopy: None EKG Initial EKG: Attestation: I personally reviewed and interpreted this EKG as follows: Interpretation: Sinus Rhythm Comments: Normal sinus rhythm at a rate of 64 bpm with sinus arrhythmia Normal axis Normal intervals Normal ST segments Compared to prior EKG on 01/25/2025, no acute changes Prior EKG tracings: available for review Prior: Unchanged Discharge Plan Triage Chief Complaint: Cough ED Provider: Marlene Esqueda Dx/Rx/DC Orders Clinical Impression: Bronchitis, Hemoptysis Instructions: ED Hemoptysis, ED URI, Viral, No Abx (Adult) Prescriptions: New benzonatate 200 mg capsule 200 mg PO TID PRN (Reason: cough) Qty: 20 0RF albuterol sulfate [Ventolin HFA] 90 mcg/actuation HFA aerosol inhaler 1 - 2 puff inhalation Q4H PRN PRN (Reason: Wheezing or coughing fits ) Qty: 1 0RF No Action ferrous sulfate [FeroSul] 325 mg (65 mg iron) tablet 325 mg PO QDAY ergocalciferol (vitamin D2) 50 mcg (2,000 unit) capsule 50 mcg PO WE lorazepam 0.5 mg tablet 0.5 mg PO DAILY PRN (Reason: anxiety) guaifenesin [Mucinex] 600 mg tablet extended release 12hr 1,200 mg PO TID PRN (Reason: congestion) Patient Comments: USES OTC Primary Care Provider: Candis Rayo Referrals: Candis Rayo, BALANCE ASSEMBLER-C [Primary Care Provider, Family Practice] Activity Restrictions/Additional Instructions: You do not have signs of a blood clot today. I suspect you have bronchitis. Continue taking Mucinex and [id number] cough and cold medication. You been prescribed cough medicine as well as an inhaler to take for coughing fits/bronchospasm. Print Language: Belarusian Disposition Disposition: Home, Self Care Discharge Date/Time: 05/13/25 15:36
[2025-05-13 15:35] VITALS: BP 106/67; PULSE 75; RESP 20; TEMP 36.4; O2SAT 100
== END 2025-05-13 15:36 | disposition home or self-care (01) ==
PROVIDERS: Emergency Provider Emergency Medicine; Visit Provider Emergency Medicine
DX: J40 Bronchitis, not specified as acute or chronic (principal); F60.3 Borderline personality disorder; F33.2 Major depressive disorder, recurrent severe without psychotic features; R04.2 Hemoptysis; F41.9 Anxiety disorder, unspecified; F43.10 Post-traumatic stress disorder, unspecified; F17.210 Nicotine dependence, cigarettes, uncomplicated; F17.290 Nicotine dependence, other tobacco product, uncomplicated
CPT/HCPCS: 71046; 80048; 85025; 85379; 93005; 99284; A4216

== ENCOUNTER 2025-05-20 14:30 | Outpatient (RCR) | payer MEDICAID, SELFPAY ==
--- NOTE | 2025-04-02 15:41 | HP.PTEVAL ---
Patient's Visit Information Visit Information Visit Information: REY TAI is a 19 year old F referred to Physical Therapy by Candis Rayo, KELY, GENERAL OFFICE WORKER-C with a diagnosis of scoiliosis, pain. Date of Evaluation: 04/02/25 Physical Therapist: Renato Patel, DPT, OCS, CSCS Visit Plan Frequency: 2-3x /Week Duration: 4-6 Weeks Plan: 2-3x/week for 3-6 weeks ... IE HEP: chest and gastroc stretch 30 4x daily, trunk rotation adn PPU 10-25x 3x/day and appropriate posture chest out all with HO Treat with: 1. HS stretch to HEP 2. core and hip and postural strngth to HEP home mat and band then gym once I with home.Focus core Subjective Subjective: Goes by Rick LBP for 10 yrs and getting worse. Mom never took him to appointments. Now saw Dr. Rayo. X ray: no scoliosis but curved. LB pain intermittent and constant dull ache. Sitting too long or standing > 20 min makes him worse. Sharp movements turning and bending. pain for 5 minutes. 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 Hard to move for 15 minuts lying on floor and then it diisipates. No leg symptoms related. Sleep is not interrupted often. Will not run with this. Hard to hike as it makes him worse. No school and will get GED. Graphic arts is hobby. No regular ex except walking one mile per day, hurts a bit. Pain LBP: Pain Intensity (Out of 10): 2 Pain Intensity Range: 0 and 7 Objective Objective: Walks I hunched over kyphotic postural thoracic and flat lordosis. bed adn chair transfer are I. Forward head and tightness apparent in B pecs. gastroc max tight at -3 Df B. Slight L rib hump with flexion Lumbar AROM xt painful lower thoracic and min deficits, flexion min deficits and tight but no pain, SB are OK. PA pressure gives pain lower thoracic area as does testing of UE flexion seated showing instability. Soft tissue parapsinals not overly tender or knotty. - SLump, - SLR B, mod tight HS at -30 90/90 test. reflexes 2/3 patella adn achills B sensation EL WNL to gross light touch B LE. strength is poor in core at 3/5 ext adn flexion, poor in hips at 3/5 hip flexion with core instability, 3/5 abd and ext hips B. knees 4/5, ankles 4/5 Balance/Special Test Scores Oswestry Low Back Score: 15 Goals Goal 1:: Pt sit with upright and chest out posture I without cueing Goal Time Frame: 4-6 Weeks Goal 2:: I appropriate home stretch and sterngth ex to manage symptoms Goal Time Frame: 4-6 Weeks Goal 3:: Pain in back 1/10 at worst and 75% better Goal Time Frame: 4-6 Weeks Goal 4:: Hike without increased pain Goal Time Frame: 4-6 Weeks Goal 5:: back oswestry score 5 or better. Goal Time Frame: 4-6 Weeks Rehabilitation Potential Physical Therapy Diagnosis: weakness, limited ROM and tightness causing instability and pain in spine. Rehabilitation Potential: Fair Anticipated Interventions Patient/Client Instruction: Educate patient on: Condition and Plan of Care For the Purpose of:: To decrease pain, To increase ROM, To improve nutrient delivery to tissue, To improve muscle performance and motor function and To improve ability of physical actions for home/community/work/leisure Therapeutic Exercise to Include: Strength training, Postural training, Flexibilty training, Passive ROM, Active ROM and Dynamic Lumbar Stabilization For the Purpose of:: To decrease pain, To increase ROM, To improve nutrient delivery to tissue, To improve muscle performance and motor function, To increase tolerance to activity/condition/position, To improve ability of physical actions for home/community/work/leisure and To improve gait and locomotor functions Text: Thank you for the opportunity to evaluate your patient. For Medicare and Medicare HMO plans, please review the plan of care and approve it. It will need to be FAXED BACK to us at [phone] for Medicare purposes. For Medicare only, by signing this I certify the plan of care. Please let me know if there are questions or concerns regarding this plan of care. Physician Signature: Date:
--- NOTE | 2025-05-20 15:12 | HP.PTDCSUM ---
Discharge Summary D/C summary: It has been my pleasure to treat REY TAI referred by Candis Rayo [facility], [employer], with the diagnosis of scoliosis, pain for a total of 12 visit(s). Discharge Date: 05/20/25 Please see the following information for a summary of their discharge status. Subjective Subjective: No problems with workout. Sore first couple times but better now. Back is feeling good. Will buy weigths adn do exercises at home. May join gym but will continuee HEP in the meantime. Pain LBP: Pain Intensity (Out of 10): 0 Overall Improvement % Improvement: 80 Objective Objective/Function: walks well, still sits crummy huncheed sacral posture until cued but corrects appropriately. Good aROM lumbar without pain today. Goals Goal 1:: Pt sit with upright and chest out posture I without cueing Goal Progress: Goal Met Goal 2:: I appropriate home stretch and sterngth ex to manage symptoms Goal Progress: Goal Met Goal 3:: Pain in back 1/10 at worst and 75% better Goal Progress: Goal Met Goal 4:: Hike without increased pain Goal Progress: Goal Met Goal 5:: back oswestry score 5 or better. Goal Progress: Progressing Plan Plan: d/c D/C Information Discharge Comments: Will continue at community gym or [facility]. d/c sentence: If there are questions or concerns regarding this patient's physical therapy, please feel free to call me at [phone]. Thank you for the referral of this patient. Sincerely, Renato Patel, DPT, OCS, CSCS Balance/Gait/Functional tests Balance/Special Test Scores Oswestry Low Back Score: 7 Lower Extremity Functional Score: 62 Improvement % Improvement: 80
== END 2025-05-20 19:00 | disposition home or self-care (01) ==
LOC: PT 14:30
DX: R52 Pain, unspecified (principal); M53.9 Dorsopathy, unspecified; N92.0 Excessive and frequent menstruation with regular cycle
CPT/HCPCS: 97110; 97161; 97530

== ENCOUNTER → 2025-06-19 | Outpatient (CLI) | payer MEDICAID, SELFPAY ==
[2025-06-19 16:53] LABS: Hematocrit 35.7 % (37-47); Hemoglobin 11.4 g/dL (12.0-15.0); Immature Granulocytes Count 0.010 X10^3/uL (0.0-0.0); Mean Corp Hgb Conc 31.9 g/dL (32-36); Mean Corpuscular Volume 94.2 fL (81-99); Mean Platelet Vol. 10.6 fl (6.2-12.0); NRBC Flagged by Analyzer 0 % (0-5); Platelet Count 359 K/mm3 (150-450); RBC Distribution Width CV 12.1 % (11.6-14.6); RBC Distribution Width SD 41.9 fl (35.1-43.9); Red Blood Count 3.79 M/mm3 (4.2-5.4); White Blood Count 5.1 K/mm3 (4.4-11.0)
[2025-06-19 17:36] LABS: AST(SGOT) 19 U/L (<=31); Alanine Aminotransfer ALT/SGPT 16 U/L (<=34); Albumin, Serum 4.8 g/dL (3.5-5.0); Alkaline Phosphatase 56 U/L (35-104); Anion Gap 9 (5-15); BUN 11 mg/dL (4-19); BUN/Creat Ratio 19.4 RATIO (10-20); Calcium,Total 10.0 mg/dL (7.6-11.0); Carbon Dioxide 25.4 mmol/L (21.0-32.0); Chloride 103 mmol/L (98-108); Globulin 2.9 g/dL (2.2-4.2); Glucose 81 mg/dL (70-99); Magnesium 2.2 mg/dL (1.5-2.2); Potassium 4.6 mmol/L (3.3-5.1)
== END | disposition home or self-care (01) ==
LOC: VSLAB 11:03
DX: R00.2 Palpitations (principal)
CPT/HCPCS: 36415; 80053; 83735; 84443; 85025

== ENCOUNTER 2025-06-22 21:28 | Emergency (ER) | payer MEDICAID, SELFPAY ==
[2025-06-22 21:29] VITALS: BP 123/77; PULSE 89; RESP 16; TEMP 36.6; O2SAT 99; BMI 17.8
--- NOTE | 2025-06-22 22:02 | EX.ED.VIS.HA ---
HPI History of Present Illness Chief Complaint: Headache Informant: patient Onset/Context/Timing Onset: Days Context: Gradual Timing: Continuous Quality -Headache: Positive for Similar Prior Headaches Current Severity: Moderate Maximum Severity: Moderate Associated Symptoms/Injury Associated Symptoms: Positive for Nausea; Negative for Fever, Vomiting, Sore Throat, Sinus Pressure, Numbness, Tingling, Preceding Aura, Visual Changes, Blurred Vision, Photophobia or Visual Loss Injury - WOOTEN: Negative for Direct Trauma, Fall or Assault Narrative Narrative: 19-year-old female history of anemia. Says she has had a headache like prior migraines. Since Monday when she is today it speedball Benacort. She denies hitting her head no LOC. No recent manipulation of her neck. She is on no blood thinners. She has had associated nausea but no vomiting. No fevers. No sinus congestion. Prior similar symptoms: Yes Recent Illness/Hospitalization: No PFSH PFSH Medical History Wears glasses Depression Anxiety Marijuana use Alcohol use Anemia Fatty liver Easy bruising Back pain Injury of head and neck Restless legs Migraine headache Dietary restriction History of IBS Gastric reflux Former smoker History of edema History of irregular heartbeat History of bulimia nervosa Borderline personality disorder PTSD (post-traumatic stress disorder) Major depressive disorder, recurrent severe without psychotic features Home Medications Medication Instructions Recorded Last Taken Type ergocalciferol (vitamin D2) 50 mcg 50 mcg PO WE LOW VITAMIN D 09/02/24 Unknown History (2,000 unit) capsule ferrous sulfate 325 mg (65 mg 325 mg PO QDAY SUPPLEMENT 09/02/24 04/28/25 History iron) tablet (FeroSul) albuterol sulfate 90 mcg/actuation 1 - 2 puff inhalation Q4H PRN PRN 05/13/25 Unknown Rx aerosol inhaler (Ventolin HFA) Wheezing or coughing fits #1 inh lorazepam 0.5 mg tablet 0.5 mg PO DAILY PRN anxiety 05/13/25 05/10/25 History Allergy/AdvReac Type Severity Reaction Status Date / Time Penicillins Allergy Unknown Verified 06/22/25 21:32 Family History Mother Asthma Diabetes Hypertension Father Diabetes Surgical History History of esophagogastroduodenoscopy (EGD) Social History Smoking Status: Current every day smoker tobacco type: cigarettes and e-cigarettes ROS ROS ED ROS Narrative Nausea. Headache. Constitutional Constitutional ED: Denies chills or fever(s) Eyes Eyes: Denies blurry vision ENT ENT ED: Denies ear pain Cardiovascular Cardiovascular: Denies chest pain Respiratory/Chest Respiratory/Chest: Denies cough or dyspnea Gastrointestinal Gastrointestinal: Reports nausea; Denies abdominal pain, constipation, diarrhea, melena or vomiting Genitourinary Genitourinary ED: Denies dysuria or hematuria Musculoskeletal Musculoskeletal: Denies arthralgias or back pain Integumentary Denies abscess Neurologic Neurologic: Reports headache(s); Denies paresthesias or weakness Psychiatric Psychiatric: Denies anxiety or depression Endocrine Endocrinology: Denies polydipsia Hematologic/Lymphatic Hematologic/Lymphatic: Denies easy bleeding, easy bruising or lymphadenopathy Allergic/Immunologic Allergic/Immunologic ED: Denies mouth swelling, tongue swelling or urticaria EXAM Physical Exam Narrative Exam Narrative: 89-year-old female sitting upright in bed. Vital signs stable afebrile. Does not look septic toxic no acute distress. H EENT exam pupils round react light. Moist extremities. No facial droop. Normal speech. No trauma. No frontal or maxillary sinus tenderness. Posterior pharynx unremarkable. TMs normal. Neck nontender no lymphadenopathy. Full range of motion. Able to touch chin to chest. Back nontender. Lungs clear to auscultation bilaterally. Heart regular rhythm no murmur. Chest wall ribs nontender. Abdomen soft nontender. Moving all 4 extremities. 5 out of 5 emergency dept tech strength. Dorsi plantarflexion intact. [id number] fingertip to nose within normal limits. Neurologic exam normal. NIH 0. Patient has normal emergency dept tech strength bilaterally. Normal dorsi plantarflexion. Got up out of the bed walk to the door and back without any difficulty. No ataxia. Const Vital Signs: 06/22/25 21:29 06/22/25 21:42 Temperature 97.8 F Temperature Source Oral Pulse Rate 89 Respiratory Rate 16 Respiratory Effort Normal Respiratory Pattern Normal Blood Pressure 123/77 H Blood Pressure Mean 92 Pulse Ox 99 Oxygen Delivery Method Room Air MDM MDM MDM Narrative Medical decision making narrative: 19-year-old female with a headache with a history of migraines with prior evaluations for that. Should be treated with IV fluids, Toradol, Benadryl and Compazine and reassess. Neurologic exam is normal. I do not think she needs any labs or imaging. She has a very benign exam. Repeat exam patient's headache is resolved. She is feeling better. She is standing up as I enter the room. Repeat exam is normal and unchanged. She is comfortable being discharged home. History & Record Review Discussion w/independent historian: Patient Additional record(s) reviewed:: Prior outpatient record, Prior ED visit and Prior labs Discharge Plan Triage Chief Complaint: Headache Other Complaint: Dizziness Other, Pain/Inj ED Provider: Bj Resendez Dx/Rx/DC Orders Clinical Impression: Headache Instructions: ED Headache Unspecified Prescriptions: No Action ferrous sulfate [FeroSul] 325 mg (65 mg iron) tablet 325 mg PO QDAY ergocalciferol (vitamin D2) 50 mcg (2,000 unit) capsule 50 mcg PO WE lorazepam 0.5 mg tablet 0.5 mg PO DAILY PRN (Reason: anxiety) albuterol sulfate [Ventolin HFA] 90 mcg/actuation HFA aerosol inhaler 1 - 2 puff inhalation Q4H PRN PRN (Reason: Wheezing or coughing fits ) Qty: 1 0RF Primary Care Provider: Candis Rayo Referrals: Candis Rayo, OVERHAULER HELPER-C [Primary Care Provider, Family Practice] - 3-5 Days if not improving Activity Restrictions/Additional Instructions: Plenty of fluids and rest. Motrin and Tylenol for any pain. Follow-up with your primary care provider if not improving or return if feeling worse. Print Language: Hungarian Disposition Disposition: Home, Self Care
--- OUTSIDE RECORDS SUMMARY | 2025-06-22 22:04 | XMS RPT_ITS | CCD ---
Author Organization [facility] Care Team Providers Care Optic Fibre Drawer Name Role Phone Unavailable Primary Care Provider UnavailELOISA Smith Attending Unavailable JAJA ROSARIO Attending Unavailable Chitra VSC, Chiquita Primary Care Unavailable Chitra VSC, Chiquita Referring Unavailable Robotchito, Ama Attending Unavailable Jaclyn Rm Attending Unavailable Jaclyn Rm Referring Unavailable Trevor PERDUE, Erika Primary Care Unavailable Marlene Esqueda Attending Unavailable Beam VSC, Zebulun Primary Care Unavailable Beam VSC, Zebulun Attending Unavailable Chitra VSC, Chiquita Primary Care Unavailable Robotham, Maa Referring Unavailable Chitra VSC, Chiquita Primary Care Unavailable Robotchito, Ama Attending Unavailable Jaclyn Rm Attending Unavailable Jaclyn Rm Referring Unavailable Trevor PERDUE, Erika Primary Care Unavailable Beam VSC, Zebulun Referring Unavailable Beam VSC, Zebulun Primary Care Unavailable Beam VSC, Zebulun Attending Unavailable Beam VSC, Zebulun Referring Unavailable Beam VSC, Zebulun Primary Care Unavailable Beam VSC, Zebulun Attending Unavailable Vidal Molina Attending Unavailable Chitra VSC, Chiquita Primary Care Unavailable Jaclyn Rm Attending Unavailable Jaclyn Rm Referring Unavailable Trevor PERDUE, Erika Primary Care Unavailable Robotham, Ama Referring Unavailable Chitra VSC, Chiquita Primary Care Unavailable Robotham, Ama Consulting Unavailable Robotham, Ama Attending Unavailable Allergies Allergy Classification Reported Allergen(s) Allergy Type Date of Onset Reaction(s) Facility (1 source) father diandra allergic to PCN [Other] Propensity to adverse reactions 6 [facility] (1 source) OTHER; Translations: [OTHER] Propensity to adverse reactions (disorder) 6 [facility] (1 source) Penicillins Drug allergy (disorder) [facility] Repository Medications Current Medications Medication Drug [...] mg/ml oral solution (1 source) Phenothiazine, Uncompetitive L-wcviql-F-aspartat e Receptor Antagonist, Sigma-1 Agonist Start: 04-08-2015 [...] Classification Problem Date Documented Da te Episodic/Chronic Esophageal disorders (1 source) Gastro-esophageal reflux disease without esophagitis; Translations: [Gastro-esophageal reflux disease without esophagitis] Onset: 10-03-2024 Chronic Nonspecific chest pain (1 source) Chest pain, unspecified; Translations: [Chest pain, unspecified type] Onset: 05-13-2025 Episodic Other gastrointestinal disorders (1 source) Acute constipation; Translations: [Constipation, unspecified] 01-04-2025 Episodic Other lower respiratory disease (1 source) Hemoptysis; Translations: [Hemoptysis] Onset: 05-13-2025 Episodic Residual codes; unclassified (1 source) Pain, unspecified; Translations: [Pain, unspecified] Onset: 04-01-2025 Episodic Unclassified (1 source) Cough, unspecified; Translations: [Cough, unspecified] Onset: 06-01-2025 Past or Other Problems Problem Classification Problem Date Documented Da te Episodic/Chronic Deficiency and other anemia (1 source) Anemia, unspecified; Translations: [Anemia, unspecified] Onset: 09-13-2024 Episodic Disorders of teeth and jaw (1 source) Tooth discolored; Translations: [Posteruptive color changes of dental hard tissues] Onset: 12-02-2014 08-02-2021 Episodic Other gastrointestinal disorders (1 source) Constipation, unspecified; Translations: [Acute constipation] Onset: 01-04-2025 Episodic Suicide and intentional self-inflicted injury (1 source) Suicidal ideations; Translations: [Suicidal ideations] Onset: 01-31-2025 Episodic Results Test Name Value Interpretation Reference Range Facility PT D/C Summary (1)on 025 PT D/C Summary (1) [facility] Physical Therapy [address] [place] [address] / REHABILITATION SERVICES DISCHARGE SUMMARY MR#: [id number] Acct: [id number] Name: REY TAI Rep #: [id number] : 2005 19 From: Renato Patel DPT, OCS, CSCS Referring DrMoo: Candis Rayo [facility]: [facility]/[employer] [facility] Discharge Summary D/C summary: It has been my pleasure to treat REY TAI referred by KELY Hammond, LOAD OUT WORKERElizabethC, with the diagnosis of scoliosis, pain for a total of 12 visit(s). Discharge Date: 05/20/25 Please see the following information for a summary of their discharge status. Subjective Subjective: No problems with workout. Sore first couple times but better now. Back is feeling good. Will buy weigths adn do exercises at home. May join gym but will continuee HEP in the meantime. Pain LBP: Pain Intensity (Out of 10): 0 Overall Improvement % Improvement: 80 Objective Objective/Function: walks well, still sits crummy huncheed sacral posture until cued but corrects appropriately. Good aROM lumbar without pain today. Goals Goal 1:: Pt sit with upright and chest out posture I without cueing Goal Progress: Goal Met Goal 2:: I appropriate home stretch and sterngth ex to manage symptoms Goal Progress: Goal Met Goal 3:: Pain in back 1/10 at worst and 75% better Goal Progress: Goal Met Goal 4:: Hike without increased pain Goal Progress: Goal Met Goal 5:: back oswestry score 5 or better. Goal Progress: Progressing Plan Plan: d/c D/C Information Discharge Comments: Will continue at community gym or [facility]. d/c sentence: If there are questions or concerns regarding this patient's physical therapy, please feel free to call me at [phone]. Thank you for the referral of this patient. Sincerely, Renato Patel, DPT, OCS, CSCS Balance/Gait/Functional tests Balance/Special Test Scores Oswestry Low Back Score: 7 Lower Extremity Functional Score: 62 Improvement % Improvement: 80 05/20/25 1512 CC: Candis [facility] LOAD OUT WORKER-C Beam EBG Signed Normal [facility] 12 Lead EKGon 05-13-2025 12 Lead EKG [facility] Cardiovascular Services [address] [place] [address] 12 Lead EKG 05/13/25 1353 MR#: [id number] Acct: [id number] Name: REY TAI Rep #: [id number] : 2005 19 From: Dalton Hughes MD Attending Dr: Status: DEP ER Ordering Dr: Marlene Esqueda DO Date: 05/13/25 Location: ED Sex: F C Admitted: Test Reason : Blood Pressure : */* mmHG Vent. Rate : 64 BPM Atrial Rate : 64 BPM P-R Int : 168 ms QRS Dur : 74 ms QT Int : 380 ms P-R-T Axes : 63 85 71 degrees QTcB Int : 392 ms Normal sinus rhythm with sinus arrhythmia Normal ECG Confirmed by GLORIA POTTS, DALTON ([id number]), manuscript editor MEGHA BUTLER ([id number]) on 05/14/2025 1:25:58 PM Referred By: HENNY Confirmed By: DALTON HUGHES MD 05/14/25 1326 Date Dalton Hughes MD CC: Dr. Marlene Esqueda, DO; Kdregulo [facility] [place] LO[employer] OUT WORKER-C Beam Signed Normal [facility] Basic Metabolic Profile (BMP )on 05-13-2025 BUN/CRE 18.2 RATIO Normal 10-20 [facility] Comment on above: Performed By: #### L 100.0100, L300.8000, L500.2500 ####[facility] [address] [place], [address] Calcium [Mass/Vol] 9.3 mg/dL Normal 7.6-11.0 [facility] Comment on above: Performed By: #### L 100.0100, L300.8000, L500.2500 ####[facility] [address] [place], [address] Chloride [Moles/Vol] 106 mmol/L Normal 98-108 [facility] Comment on above: Performed By: #### L 100.0100, L300.8000, L500.2500 ####[facility] [address] [place], [address] CO2 [Moles/Vol] 23.4 mmol/L Normal 21.0-32.0 [facility] Comment on above: Performed By: #### L 100.0100, L300.8000, L500.2500 ####[facility] [address] [place], [address] Creatinine [Mass/Vol] 0.48 mg/dL Low 0.70-1.20 [facility] Comment on above: Performed By: #### L 100.0100, L300.8000, L500.2500 ####[facility] [address] [place], [address] ECRCL 163.88 ml/min Normal 50-250 [facility] Comment on above: Performed By: #### L 100.0100, L300.8000, L500.2500 ####[facility] [address] [place], [address] GAP 11 Normal 5-15 [facility] Comment on above: Performed By: #### L 100.0100, L300.8000, L500.2500 ####[facility] [address] [place], [address] GFR/1.73 sq M.predicted among non-blacks MDRD (S/P/Bld) [Vol rate/Area] 140 mL/min/{1.73_m2} Normal >60 [facility] Comment on above: Result Comment: mL/m in/1.73m2 CKD-EPI Creatinine Equation (2020) Performed By: #### L 100.0100, L300.8000, L500.2500 ####[facility] [address] [place], [address] Glucose [Mass/Vol] 87 mg/dL Normal 70-99 [facility] Comment on above: Performed By: #### L 100.0100, L300.8000, L500.2500 ####[facility] [address] [place], [address] Potassium [Moles/Vol] 4.0 mmol/L Normal 3.3-5.1 [facility] Comment on above: Performed By: #### L 100.0100, L300.8000, L500.2500 ####[facility] [address] [place], [address] Sodium [Moles/Vol] 141 mmol/L Normal 133-145 [facility] Comment on above: Performed By: #### L 100.0100, L300.8000, L500.2500 ####[facility] [address] [place], [address] Urea nitrogen [Mass/Vol] 9 mg/dL Normal 4-19 [facility] Comment on above: Performed By: #### L 100.0100, L300.8000, L500.2500 ####[facility] [address] [place], [address] CBC W/Diff, Automatedon 10-0 7-2024 Absolute Lymph 1.94 X10 3/uL Normal 0.83-4.51 [facility] Comment on above: Performed By: #### L 100.0100, L300.8000, L500.2500 #### [facility] [address] [place], [address] Absolute Neut 4.2 X10 3/uL Normal 2.0-7.7 [facility] Comment on above: Performed By: #### L 100.0100, L300.8000, L500.2500 #### [facility] [address] [place], [address] Basophils/100 WBC (Bld) 0.6 % Normal 0-1 [facility] Comment on above: Performed By: #### L 100.0100, L300.8000, L500.2500 #### [facility] [address] [place], [address] Eosinophils/100 WBC (Bld) 1.7 % Normal 0-5 [facility] Comment on above: Performed By: #### L 100.0100, L300.8000, L500.2500 #### [facility] [address] [place], [address] Erythrocyte distribution width (RBC) [Ratio] 11.6 % Normal 11.6-14.6 [facility] Comment on above: Performed By: #### L 100.0100, L300.8000, L500.2500 #### [facility] [address] [place], [address] Hematocrit (Bld) [Volume fraction] 34.2 % Low 37-47 [facility] Comment on above: Performed By: #### L 100.0100, L300.8000, L500.2500 #### [facility] [address] [place], [address] Hemoglobin (Bld) [Mass/Vol] 11.2 g/dL Low 12.0-15.0 [facility] Comment on above: Performed By: #### L 100.0100, L300.8000, L500.2500 #### [facility] [address] [place], [address] IG% 0.300 Normal 0.0-0.9 [facility] Comment on above: Result Comment: IG% - Immature Granulocytes (promyelocytes, myelocytes and metamyelocytes) > 1% indicates that a LEFT SHIFT is Present. Performed By: #### L 100.0100, L300.8000, L500.2500 #### [facility] [address] [place], [address] Lymphocytes/100 WBC (Bld) 29.2 % Normal 19-41 [facility] Comment on above: Performed By: #### L 100.0100, L300.8000, L500.2500 #### [facility] [address] [place], [address] MCH (RBC) [Entitic mass] 29.9 pg Normal 27.0-32.0 [facility] Comment on above: Performed By: #### L 100.0100, L300.8000, L500.2500 #### [facility] [address] [place], [address] MCHC (RBC) [Mass/Vol] 32.7 g/dL Normal 32-36 [facility] Comment on above: Performed By: #### L 100.0100, L300.8000, L500.2500 #### [facility] [address] [place], [address] MCV (RBC) [Entitic vol] 91.2 fL Normal 81-99 [facility] Comment on above: Performed By: #### L 100.0100, L300.8000, L500.2500 #### [facility] [address] [place], [address] Monocytes/100 WBC (Bld) 5.4 % Normal 0-10 [facility] Comment on above: Performed By: #### L 100.0100, L300.8000, L500.2500 #### [facility] [address] [place], [address] Neutrophils/100 WBC (Bld) 62.8 % Normal 47-70 [facility] Comment on above: Performed By: #### L 100.0100, L300.8000, L500.2500 #### [facility] [address] [place], [address] Nucleated RBC (Bld) [#/Vol] 0 10*3/uL Normal 0-5 [facility] Comment on above: Performed By: #### L 100.0100, L300.8000, L500.2500 #### [facility] [address] [place], [address] Platelet mean volume (Bld) [Entitic vol] 10.2 fL Normal 6.2-12.0 [facility] Comment on above: Performed By: #### L 100.0100, L300.8000, L500.2500 #### [facility] [address] [place], [address] Platelets (Bld) [#/Vol] 372 10*3/uL Normal 150-450 [facility] Comment on above: Performed By: #### L 100.0100, L300.8000, L500.2500 #### [facility] [address] [place], [address] RBC (Bld) [#/Vol] 3.75 10*6/uL Low 4.2-5.4 [facility] Comment on above: Performed By: #### L 100.0100, L300.8000, L500.2500 #### [facility] [address] [place], [address] RDW SD 38.8 fl Normal 35.1-43.9 [facility] Comment on above: Performed By: #### L 100.0100, L300.8000, L500.2500 #### [facility] [address] [place], [address] WBC (Bld) [#/Vol] 6.6 10*3/uL Normal 4.4-11.0 [facility] Comment on above: Performed By: #### L 100.0100, L300.8000, L500.2500 #### [facility] [address] [place], [address] CNOVon 05-13-2025 CNOV Office Visit (WOUCA) REY TAI ([id number]) [birth year] Date Time Provider Department 05/13/25 12:00 PM ELOISA SAGASTUME During your visit today, we recorded the following information about you: Temperature Pulse Respiration Blood pressure 98.2 degrees 80/minute 16/minute 102/64 Weight 54.9 kg Eloisa Sagastume APRN.DAIRY NUTRITIONIST 05/13/2025 12:21 PM Signed [facility] Subjective Rey Chamorro Jazzmine is a 19 year old female. Patient presents with: Cough: Cough, chest congestion x 8 days Cough The patient is a 19-year-old female presenting with hemoptysis, chest pain, and dyspnea. Hemoptysis: - Hemoptysis x2 days, primarily at night. - Describes expectorating "chunks" or "blobs" of dark blood, varying in size but generally around the size of a fingernail. - Denies expectorating golf ball-sized amounts of blood. Chest Pain: - Reports chest pain. - Mild pleuritic pain with deep inspiration. Dyspnea: - Reports dyspnea. Review of Systems Respiratory: Positive for cough. Cardiovascular: (+) chest pain Respiratory: (+) hemoptysis, (+) shortness of breath Objective BP 102/64 Pulse 80 Temp 36.8 ?C (98.2 ?F) (Tympanic) Resp 16 Wt 54.9 kg (121 lb 0.5 oz) SpO2 98% Physical Exam General: No acute distress. { 1. Hemoptysis (R04.2) 2. Chest pain, unspecified type (R07.9) - Acute hemoptysis with dark blood and associated chest pain and dyspnea are concerning for a potentially serious underlying condition. - Advised immediate evaluation in the emergency department to rule out life-threatening causes. - Educated patient on the significance of dark blood as a red flag symptom indicating possible internal bleeding; patient verbalized understanding. and Recording using [employer] software for draft documentation of the visit was discussed with the patient/authorized healthcare representative; all questions welcomed and answered. Patient/authorized healthcare representative agreed to proceed History and Record Review External record(s) reviewed: no prior records. Disposition The patient was other (comment). Procedures Allergies As of Date: 05/13/2025 Noted Allergy Reaction father diandra allergic to PCN [O*2005 Date Reviewed: 05/13/2025 Reviewed by: Cleo Vargas LPN - Fully Assessed Reason for Visit: Cough [28] Cmt: Cough, chest congestion x 8 days Visit Diagnoses:Hemoptysis [R04.2] Chest pain, unspecified type [R07.9] Prescriptions as of 05/13/2025 - prednisoLONE (ORAPRED) 15 mg/5 mL solution 15ml daily x 3 days - Promethazine-DM (PHENERGAN-DM) 6.25-15 mg/5 mL syrup Take 2.5 mL by mouth four times daily as needed. - Pedi MVI No.17 with Fluoride (MULTI-VITAMIN WITH FLUORIDE) 1 mg chew Take 1 tablet by mouth once daily. Problem List As Of Date 05/13/2025 Noted Resolved Tooth discoloration [K03.7] 12/02/2014 Encounter Status:Closed by ELOISA SAGASTUME on 05/13/25 Normal [facility] Chest PA and Lateralon 05-13 Chest PA and Lateral [facility] Imaging Services [address] [place] [address] Chest PA and Lateral MR#: [id number] Acct: [id number] Name: REY TAI Rep #: [id number] : 2005 F 19 From: Clayton walls MD PCP: Candis Rayo [facility] [place] LOAD OUT WORKER-C Status: REG ER Study: Chest PA and Lateral Date of Exam: 05/13/25 Exam# [id number] Ordering Dr: Marlene Esqueda DO PROCEDURE: CHEST PA AND LATERAL 05/13/2025 REASON FOR EXAM: HEMOPTYSIS TECHNIQUE: Procedure Code: RADCXR Modality: DX Procedure: CHEST PA AND LATERAL COMPARISON: None FINDINGS: Hardware: EKG electrodes are seen. Heart: The heart size is normal. Mediastinum: The mediastinal contour is unremarkable. Lungs: The lungs are clear. Bones: The bones are unremarkable. RAD/Chest PA and Lateral IMPRESSION: NO ACUTE FINDINGS. Reading Location: [id number] CC: Dr. Marlene Esqueda DO; Candis EDGE LOAD OUT WORKER-C [employer]er Hand: Signed Normal [facility] D-Dimer Quantitative (DVT/PE )on 05-13-2025 D-DIMER QUANT 0.39 FEU/ug/m Normal 0.27-0.49 [facility] Comment on above: Result Comment: NORM AL D-Dimer level (<0.50) indicates no DVT or PE. Performed By: #### L 100.0100, L300.8000, L500.2500 #### [facility] [address] 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 States that she was sick last week with maybe the flu. She is better and then the last 4 to 5 days has had worsening cough with mucus production has become more bloody. States the coughing and hemoptysis is mostly at nighttime. Denies any fevers. Does have night sweats. Denies any chest pain at this time. States that sputum looks like mucus that is covered in red blood. Denies any recent travel or unintentional weight loss. Denies any history or known exposure to tuberculosis. Initially went to urgent care but was sent to the ER for further evaluation. Denies any swelling of her legs. Has history of any bleeding disorders. Denies history of DVT or PE. ROS ROS ED Constitutional Constitutional ED: Reports sweats; Denies chills or fever(s) Cardiovascular Cardiovascular: Denies chest pain or palpitations Respiratory/Chest Respiratory/Chest: Reports cough; Denies dyspnea Gastrointestinal Gastrointestinal: Denies abdominal pain, nausea or vomiting Neurologic Neurologic: Denies paresthesias or weakness Hematologic/Lymphatic Hematologic/Lymphatic: Denies easy bleeding or easy bruising [facility] Medical History Wears glasses Depression Anxiety Marijuana use Alcohol use Anemia Fatty liver Easy bruising Back pain Injury of head and neck Restless legs Migraine headache Dietary restriction History of IBS Gastric reflux Former smoker History of edema History of irregular heartbeat History of bulimia nervosa Borderline personality disorder PTSD (post-traumatic stress disorder) Major depressive disorder, recurrent severe without psychotic features Home Medications ???Medication ???Instructions ???Recorded ???Last Taken ???Type ergocalciferol (vitamin D2) 50 mcg 50 mcg PO WE LOW VITAMIN D 08/08 02/28 Unknown History (2,000 unit) capsule ferrous sulfate 325 mg (65 mg 325 mg PO QDAY SUPPLEMENT 09/02/24 04/28/25 History iron) tablet (FeroSul) albuterol sulfate 90 mcg/actuation 1 - 2 puff inhalation Q4H PRN SD N 05/13/25 Unknown Rx aerosol inhaler (Ventolin HFA) Wheezing or coughing fits #1 inh benzonatate 200 mg capsule 200 mg PO TID PRN cough #20 caps 1 Unknown Rx guaifenesin 600 mg tablet, 1,200 mg PO TID PRN congestion 02/2805/12/25 History extended release 12 hr (Mucinex) lorazepam 0.5 mg tablet 0.5 mg PO DAILY PRN anxiety 05/10/25 History Allergy/AdvReac Type Severity Reaction Status Date / Time Penicillins Allergy Unknown Verified 05/13/25 12:44 Family History Mother Asthma Diabetes Hypertension Father Diabetes Surgical History History of esophagogastroduodenoscopy (EGD) Social History Smoking Status: Current every day smoker tobacco type: cigarettes and e-cigarettes EXAM Physical Exam Const Vital Signs: 05/13/25 12:42 05/13/25 12:57 05/13/25 13:33 Temperature 98.4 F Temperature Source Oral Pulse Rate 55 L Respiratory Rate 18 Respiratory Effort Normal Blood Pressure 104/69 Blood Pressure Mean 80 Pulse Ox 98 98 Oxygen Delivery Method Room Air Room Air Room Air 05/13/25 14:41 05/13/25 15:35 Temperature 97.6 F L Temperature Source Pulse Rate 63 75 Respiratory Rate 17 20 H Respiratory Effort Blood Pressure 106/67 Blood Pressure Mean 80 Pulse Ox 98 100 Oxygen Delivery Method Room Air Positive well nourished and well developed General Appearance ED: well developed and NAD; Negative for pallor HEENT Reports moist mucous membranes Eyes PERRL General Eye ED: Negative for pale conjunctiva Neck no lymphadenopathy and supple Resp normal respiratory effort and clear to auscultation bilaterally Auscultation: Negative for rales, rhonchi or wheezes Cardio no murmurs Rate: regular rate Rhythm: regular rhythm GI non-tender and non-distended Extremity normal to inspection Neuro oriented x3 Sensorium / Orientation: alert Motor Exam: Negative for general weakness Psych mental status grossly normal Skin General Skin Exam: Negative for pallor Rashes: no rashes MDM MDM MDM Narrative Medical decisio (more content not included)... Normal [facility] Inital Evaluation (1) - PTon 04-02-2025 Inital Evaluation (1) - PT [facility] [address] [place] [address] / REHABILITATION SERVICES INITIAL EVALUATION MR#: [id number] Acct: [id number] Name: REY TAI Rep #: [id number] : 2005 19 From: Renato Patel DPT, OCS, CSCS Referring Dr.: Candis Rayo LO[employer] OUT WORKER-C Status: RE G RCR Insurance: [employer] SELF PAY INSURANCE Patient's Visit Information Visit Information Visit Information: REY TAI is a 19 year old F referred to Physical Therapy by KELY Hammond, LOAD OUT WORKER-C with a diagnosis of scoiliosis, pain. Date of Evaluation: 04/02/25 Physical Therapist: Renato Patel DPT, OCS, CSCS Visit Plan Frequency: 2-3x /Week Duration: 4-6 Weeks Plan: 2-3x/week for 3-6 weeks ... IE HEP: chest and gastroc stretch 30" 4x daily, trunk rotation adn PPU 10-25x 3x/day and appropriate posture chest out all with HO Treat with: 1. HS stretch to HEP 2. core and hip and postural strngth to HEP home mat and band then gym once I with home.Focus core Subjective Subjective: Goes by "[employer]" LBP for 10 yrs and getting worse. Mom never took him to appointments. Now saw Dr. Rayo. X ray: no scoliosis but curved. LB pain intermittent and constant dull ache. Sitting too long or standing > 20 min makes him worse. Sharp movements turning and bending. pain for 5 minutes. 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 Hard to move for 15 minuts lying on floor and then it diisipates. No leg symptoms related. Sleep is not interrupted often. Will not run with this. Hard to hike as it makes him worse. No school and will get GED. [employer] is hobby. No regular ex except walking one mile per day, hurts a bit. Pain LBP: Pain Intensity (Out of 10): 2 Pain Intensity Range: 0 and 7 Objective Objective: Walks I hunched over kyphotic postural thoracic and flat lordosis. bed adn chair transfer are I. Forward head and tightness apparent in B pecs. gastroc max tight at -3 Df B. Slight L rib hump with flexion Lumbar AROM xt painful lower thoracic and min deficits, flexion min deficits and tight but no pain, SB are OK. PA pressure gives pain lower thoracic area as does testing of UE flexion seated showing instability. Soft tissue parapsinals not overly tender or knotty. - SLump, - SLR B, mod tight HS at -30 90/90 test. reflexes 2/3 patella adn achills B sensation EL WNL to gross light touch B LE. strength is poor in core at 3/5 ext adn flexion, poor in hips at 3/5 hip flexion with core instability, 3/5 abd and ext hips B. knees 4/5, ankles 4/5 Balance/Special Test Scores Oswestry Low Back Score: 15 Goals Goal 1:: Pt sit with upright and chest out posture I without cueing Goal Time Frame: 4-6 Weeks Goal 2:: I appropriate home stretch and sterngth ex to manage symptoms Goal Time Frame: 4-6 Weeks Goal 3:: Pain in back 1/10 at worst and 75% better Goal Time Frame: 4-6 Weeks Goal 4:: Hike without increased pain Goal Time Frame: 4-6 Weeks Goal 5:: back oswestry score 5 or better. Goal Time Frame: 4-6 Weeks Rehabilitation Potential Physical Therapy Diagnosis: weakness, limited ROM and tightness causing instability and pain in spine. Rehabilitation Potential: Fair Anticipated Interventions Patient/Client Instruction: Educate patient on: Condition and Plan of Care For the Purpose of:: To decrease pain, To increase ROM, To improve nutrient delivery to tissue, To improve muscle performance and motor function and To improve ability of physical actions for home/community/work/leisure Therapeutic Exercise to Include: Strength training, Postural training, Flexibilty training, Passive ROM, Active ROM and Dynamic Lumbar Stabilization For the Purpose of:: To decrease pain, To increase ROM, To improve nutrient delivery to tissue, To improve muscle performance and motor function, To increase tolerance to activity/condition/position, To improve ability of physical actions for home/community/work/leisure and To improve gait and locomotor functions Text: Thank you for the opportunity to evaluate your patient. For Medicare and Medicare HMO plans, please review the plan of care and approve it. It will need to be FAXED BACK to us at [phone] for Medicare purposes. For Medicare only, by signing this I certify the plan of care. Please let me know if there are questions or concerns regarding this plan of care. Physician Signature: _Date: 04/02/25 1542 CC: Candis Rayo EBG Signed Normal [facility] Inital Evaluation (1) - PT [facility] Physical Therapy [address] [place] [id number] / REHABILITATION SERVICES INITIAL EVALUATION MR#: [id number] Acct: [id number] Name: REY TAI Rep #: [id number] : 2005 19 From: Renato Patel DPT, OCS, CSCS Referring DrMoo: Candis Rayo Status: RE G RCR Insurance: [facility]/[employer] SELF PAY INSURANCE Patient's Visit Information Visit Information Visit Information: REY TAI is a 19 year old F referred to Physical Therapy by KELY Hammond, CONSUELOC with a diagnosis of scoiliosis, pain. Date of Evaluation: 04/02/25 Physical Therapist: Renato Patel DPT, OCS, CSCS Visit Plan Frequency: 2-3x /Week Duration: 4-6 Weeks Plan: 2-3x/week for 3-6 weeks ... IE HEP: chest and gastroc stretch 30" 4x daily, trunk rotation adn PPU 10-25x 3x/day and appropriate posture chest out all with HO Treat with: 1. HS stretch to HEP 2. core and hip and postural strngth to HEP home mat and band then gym once I with home.Focus core Subjective Subjective: Goes by "[employer]" LBP for 10 yrs and getting worse. Mom never took him to appointments. Now saw Dr. Rayo. X ray: no scoliosis but curved. LB pain intermittent and constant dull ache. Sitting too long or standing > 20 min makes him worse. Sharp movements turning and bending. pain for 5 minutes. 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 Hard to move for 15 minuts lying on floor and then it diisipates. No leg symptoms related. Sleep is not interrupted often. Will not run with this. Hard to hike as it makes him worse. No school and will get GED. [employer] is hobby. No regular ex except walking one mile per day, hurts a bit. Pain LBP: Pain Intensity (Out of 10): 2 Pain Intensity Range: 0 and 7 Objective Objective: Walks I hunched over kyphotic postural thoracic and flat lordosis. bed adn chair transfer are I. Forward head and tightness apparent in B pecs. gastroc max tight at -3 Df B. Slight L rib hump with flexion Lumbar AROM xt painful lower thoracic and min deficits, flexion min deficits and tight but no pain, SB are OK. PA pressure gives pain lower thoracic area as does testing of UE flexion seated showing instability. Soft tissue parapsinals not overly tender or knotty. - SLump, - SLR B, mod tight HS at -30 90/90 test. reflexes 2/3 patella adn achills B sensation EL WNL to gross light touch B LE. strength is poor in core at 3/5 ext adn flexion, poor in hips at 3/5 hip flexion with core instability, 3/5 abd and ext hips B. knees 4/5, ankles 4/5 Balance/Special Test Scores Oswestry Low Back Score: 15 Goals Goal 1:: Pt sit with upright and chest out posture I without cueing Goal Time Frame: 4-6 Weeks Goal 2:: I appropriate home stretch and sterngth ex to manage symptoms Goal Time Frame: 4-6 Weeks Goal 3:: Pain in back 1/10 at worst and 75% better Goal Time Frame: 4-6 Weeks Goal 4:: Hike without increased pain Goal Time Frame: 4-6 Weeks Goal 5:: back oswestry score 5 or better. Goal Time Frame: 4-6 Weeks Rehabilitation Potential Physical Therapy Diagnosis: weakness, limited ROM and tightness causing instability and pain in spine. Rehabilitation Potential: Fair Anticipated Interventions Patient/Client Instruction: Educate patient on: Condition and Plan of Care For the Purpose of:: To decrease pain, To increase ROM, To improve nutrient delivery to tissue, To improve muscle performance and motor function and To improve ability of physical actions for home/community/work/leisure Therapeutic Exercise to Include: Strength training, Postural training, Flexibilty training, Passive ROM, Active ROM and Dynamic Lumbar Stabilization For the Purpose of:: To decrease pain, To increase ROM, To improve nutrient delivery to tissue, To improve muscle performance and motor function, To increase tolerance to activity/condition/position, To improve ability of physical actions for home/community/work/leisure and To improve gait and locomotor functions Text: Thank you for the opportunity to evaluate your patient. For Medicare and Medicare HMO plans, please review the plan of care and approve it. It will need to be FAXED BACK to us at [phone] for Medicare purposes. For Medicare only, by signing this I certify the plan of care. Please let me know if there are questions or concerns regarding this plan of care. Physician Signature: _Date: 04/02/25 1541 CC: Candis ROCKWELL Beam EBG Signed Normal [facility] Scoliosis 1 viewon 5 Scoliosis 1 view [facility] [address] [place] [address] Scoliosis 1 view MR#: [id number] Acct: [id number] Name: REY TAI Rep #: [id number] : 2005 F 19 From: Costa Tapia MD PCP: Candis Rayo Status: REG CLI Study: Scoliosis 1 view Date of Exam: 03/25/25 Exam# [id number] Ordering Dr: Candis Rayo PROCEDURE: SCOLIOSIS 1 VIEW 03/25/2025 REASON FOR EXAM: PAIN TECHNIQUE: SCOLIOSIS 1 VIEW COMPARISON: None FINDINGS: There is levocurvature of the lumbar region with less than 10 degrees of variance, which can indicate spasm. Vertebral body height is maintained. Mineralization is normal. RAD/Scoliosis 1 view IMPRESSION: There is levocurvature of the lumbar region with less than 10 degrees of variance, which can indicate spasm. Reading Location: [facility] CC: Candis Rayo Garment Sewer Hand: Signed Normal [facility] 12 Lead EKGon 01-25-2025 12 Lead EKG [facility] Cardiovascular Services [address] [place] [address] 12 Lead EKG 01/25/25 1704 MR#: [id number] Acct: [id number] Name: REY TAI Rep #: [id number] : 2005 19 From: Kevin Pardo MD Attending Dr: Status: DEP ER Ordering Dr: Vidal Molina DO Date: 01/25/25 Location: ED Sex: F C Admitted: Test Reason : PLACEMENT Blood Pressure : */* mmHG Vent. Rate : 69 BPM Atrial Rate : 69 BPM P-R Int : 154 ms QRS Dur : 84 ms QT Int : 358 ms P-R-T Axes : 69 83 71 degrees QTcB Int : 383 ms Normal sinus rhythm Normal ECG Confirmed by Kevin Pardo ([id number]), manuscript editor MEGHA BUTLER ([id number]) on 01/28/2025 11:49:50 AM Referred By: Confirmed By: Kevin Pardo 01/28/25 1149 Date Kevin Pardo MD CC: Dr. Vidal Molina DO; Chiquita Buenrostro DO Signed Normal [facility] Alcohol, Blood (Medical)-Ser umon 01-25-2025 SERUM ETOH < 10.1 Normal <=10.0 [facility] Comment on above: Result Comment: This test is for medical purposes only. The legal definition of intoxication varies according to local law. Performed By: #### L 505.5000, L500.2500, L501.9100, L700.6800, L100.0100 ####[facility] [address] [place], [address] Basic Metabolic Profile (BMP )on 01-25-2025 BUN/CRE 10.2 RATIO Normal 10-20 [facility] Comment on above: Performed By: #### L 505.5000, L500.2500, L501.9100, L700.6800, L100.0100 ####[facility] [address] [place], [address] Calcium [Mass/Vol] 9.7 mg/dL Normal 7.6-11.0 [facility] Comment on above: Performed By: #### L 505.5000, L500.2500, L501.9100, L700.6800, L100.0100 ####[facility] [address] [place], [address] Chloride [Moles/Vol] 103 mmol/L Normal 98-108 [facility] Comment on above: Performed By: #### L 505.5000, L500.2500, L501.9100, L700.6800, L100.0100 ####[facility] [address] [place], [address] CO2 [Moles/Vol] 24.4 mmol/L Normal 21.0-32.0 [facility] Comment on above: Performed By: #### L 505.5000, L500.2500, L501.9100, L700.6800, L100.0100 ####[facility] [address] [place], [address] Creatinine [Mass/Vol] 0.84 mg/dL Normal 0.70-1.20 [facility] Comment on above: Performed By: #### L 505.5000, L500.2500, L501.9100, L700.6800, L100.0100 ####[facility] [address] [place], [address] ECRCL 94.11 ml/min Normal 50-250 [facility] Comment on above: Performed By: #### L 505.5000, L500.2500, L501.9100, L700.6800, L100.0100 ####[facility] [address] [place], [place], [phone] GAP 14 Normal 5-15 [facility] Comment on above: Performed By: #### L 505.5000, L500.2500, L501.9100, L700.6800, L100.0100 ####[facility] [address] [place], [address] GFR/1.73 sq M.predicted among non-blacks MDRD (S/P/Bld) [Vol rate/Area] 102 mL/min/{1.73_m2} Normal >60 [facility] Comment on above: Result Comment: mL/m in/1.73m2 CKD-EPI Creatinine Equation (2020) Performed By: #### L 505.5000, L500.2500, L501.9100, L700.6800, L100.0100 ####[facility] [address] [place], [address] Glucose [Mass/Vol] 115 mg/dL High 70-99 [facility] Comment on above: Performed By: #### L 505.5000, L500.2500, L501.9100, L700.6800, L100.0100 ####[facility] [address] [place], [address] Potassium [Moles/Vol] 3.7 mmol/L Normal 3.3-5.1 [facility] Comment on above: Performed By: #### L 505.5000, L500.2500, L501.9100, L700.6800, L100.0100 ####[facility] [address] [place], [address] Sodium [Moles/Vol] 141 mmol/L Normal 133-145 [facility] Comment on above: Performed By: #### L 505.5000, L500.2500, L501.9100, L700.6800, L100.0100 ####[facility] [address] [place], [address] Urea nitrogen [Mass/Vol] 9 mg/dL Normal 4-19 [facility] Comment on above: Performed By: #### L 505.5000, L500.2500, L501.9100, L700.6800, L100.0100 ####[facility] [address] [place], [address] CBC W/Diff, Automatedon 06-2 Absolute Lymph 2.49 X10 3/uL Normal 0.83-4.51 [facility] Comment on above: Performed By: #### L 505.5000, L500.2500, L501.9100, L700.6800, L100.0100 ####[facility] [address] [place], [address] Absolute Neut 3.8 X10 3/uL Normal 2.0-7.7 [facility] Comment on above: Performed By: #### L 505.5000, L500.2500, L501.9100, L700.6800, L100.0100 ####[facility] [address] [place], [address] Basophils/100 WBC (Bld) 0.6 % Normal 0-1 [facility] Comment on above: Performed By: #### L 505.5000, L500.2500, L501.9100, L700.6800, L100.0100 ####[facility] [address] [place], [address] Eosinophils/100 WBC (Bld) 0.9 % Normal 0-5 [facility] Comment on above: Performed By: #### L 505.5000, L500.2500, L501.9100, L700.6800, L100.0100 ####[facility] [address] [place], [address] Erythrocyte distribution width (RBC) [Ratio] 11.3 % Low 11.6-14.6 [facility] Comment on above: Performed By: #### L 505.5000, L500.2500, L501.9100, L700.6800, L100.0100 ####[facility] [address] [place], [address] Hematocrit (Bld) [Volume fraction] 37.0 % Normal 37-47 [facility] Comment on above: Performed By: #### L 505.5000, L500.2500, L501.9100, L700.6800, L100.0100 ####[facility] [address] [place], [address] Hemoglobin (Bld) [Mass/Vol] 12.5 g/dL Normal 12.0-15.0 [facility] Comment on above: Performed By: #### L 505.5000, L500.2500, L501.9100, L700.6800, L100.0100 ####[facility] [address] [place], [address] IG% 0.300 Normal 0.0-0.9 [facility] Comment on above: Result Comment: IG% - Immature Granulocytes (promyelocytes, myelocytes and metamyelocytes) > 1% indicates that a LEFT SHIFT is Present. Performed By: #### L 505.5000, L500.2500, L501.9100, L700.6800, L100.0100 ####[facility] [address] [place], [address] Lymphocytes/100 WBC (Bld) 36.0 % Normal 19-41 [facility] Comment on above: Performed By: #### L 505.5000, L500.2500, L501.9100, L700.6800, L100.0100 ####[facility] [address] [place], [address] MCH (RBC) [Entitic mass] 30.3 pg Normal 27.0-32.0 [facility] Comment on above: Performed By: #### L 505.5000, L500.2500, L501.9100, L700.6800, L100.0100 ####[facility] [address] [place], [address] MCHC (RBC) [Mass/Vol] 33.8 g/dL Normal 32-36 [facility] Comment on above: Performed By: #### L 505.5000, L500.2500, L501.9100, L700.6800, L100.0100 ####[facility] [address] [place], [address] MCV (RBC) [Entitic vol] 89.8 fL Normal 81-99 [facility] Comment on above: Performed By: #### L 505.5000, L500.2500, L501.9100, L700.6800, L100.0100 ####[facility] [address] [place], [address] Monocytes/100 WBC (Bld) 7.7 % Normal 0-10 [facility] Comment on above: Performed By: #### L 505.5000, L500.2500, L501.9100, L700.6800, L100.0100 ####[facility] [address] [place], [address] Neutrophils/100 WBC (Bld) 54.5 % Normal 47-70 [facility] Comment on above: Performed By: #### L 505.5000, L500.2500, L501.9100, L700.6800, L100.0100 ####[facility] [address] [place], [address] Nucleated RBC (Bld) [#/Vol] 0 10*3/uL Normal 0-5 [facility] Comment on above: Performed By: #### L 505.5000, L500.2500, L501.9100, L700.6800, L100.0100 ####[facility] [address] [place], [address] Platelet mean volume (Bld) [Entitic vol] 11.3 fL Normal 6.2-12.0 [facility] Comment on above: Performed By: #### L 505.5000, L500.2500, L501.9100, L700.6800, L100.0100 ####[facility] [address] [place], [address] Platelets (Bld) [#/Vol] 398 10*3/uL Normal 150-450 [facility] Comment on above: Performed By: #### L 505.5000, L500.2500, L501.9100, L700.6800, L100.0100 ####[facility] [address] [place], [address] RBC (Bld) [#/Vol] 4.12 10*6/uL Low 4.2-5.4 [facility] Comment on above: Performed By: #### L 505.5000, L500.2500, L501.9100, L700.6800, L100.0100 ####[facility] [address] [place], [address] RDW SD 36.7 fl Normal 35.1-43.9 [facility] Comment on above: Performed By: #### L 505.5000, L500.2500, L501.9100, L700.6800, L100.0100 ####[facility] [address] [place], [address] WBC (Bld) [#/Vol] 6.9 10*3/uL Normal 4.4-11.0 [facility] Comment on above: Performed By: #### L 505.5000, L500.2500, L501.9100, L700.6800, L100.0100 ####[facility] [address] [place], [address] Emergency Department Summary on 01-25-2025 Emergency Department Summary [facility] Medical Records Department [address] [place] [address] Emergency Department Summary 01/25/25 MR#: [id number] Acct: [id number] Name: REY TAI Rep #: [id number] : 2005 19 From: Vidal Ray PCP: Chiquita Buenrostro DO Status:REG ER Location: ED ADDENDUM by Dr. Matheus Michel MD on 01/26/25 at 0253 Patient endorsed to me by Dr. Vidal Molina as she is awaiting placement in a psychiatric facility. Patient was requesting from the RN a sleep aid. She had already been given Vistaril 25 mg orally, so she was given an additional 25 mg. She has been accepted at [facility]. She will be transferred in stable condition. 01/26/25 0253 Cosigner Signature (if applicable): cc: Chiquita Buenrostro DO * Signed HPI HPI - Psych History of Present Illness Chief Complaint: Suicidal Informant: patient Narrative Narrative: Patient reports was dropped off from her father for mental health evaluation. She did not tell her father why she wanted to be dropped off. History of anxiety depression, PTSD, ADHD, borderline personality disorder followed by psychology. Increasing suicidal thoughts secondary to stress. States overall stress in general with "life, relationship, the world, the way I look." 3 weeks self cutting her thigh reporting wanted to bleed to . She did not get evaluated. Yesterday she tried to strangle herself with a cord. She states she passed out. She awakened. Denies neck pain. States medication has not worked for her in the past. She used to live in [place] she moved here a little over a year ago lived with her grandmother where she was kicked out. She has been with her father for the past year. She contacted her mother today who told her to tell her father take her to emergency department. She was hospitalized this past July. Denies alcohol reports smoked marijuana yesterday uses intermittently however is trying to quit. Prior similar symptoms: Yes PFSH PFSH Medical History Wears glasses Depression Anxiety Marijuana use Alcohol use Anemia Fatty liver Easy bruising Back pain Injury of head and neck Restless legs Migraine headache Dietary restriction History of IBS Gastric reflux Former smoker History of edema History of irregular heartbeat History of bulimia nervosa Borderline personality disorder PTSD (post-traumatic stress disorder) Major depressive disorder, recurrent severe without psychotic features Home Medications ???Medication ???Instructions ???Recorded ???Last Taken ???Type ergocalciferol (vitamin D2) 50 mcg 50 mcg PO WE 09/02/24 Unknown Hi story (2,000 unit) capsule ferrous sulfate 325 mg (65 mg 325 mg PO QDAY 09/02/24 Unknown Hi story iron) tablet (FeroSul) omeprazole 40 mg capsule,delayed 40 mg PO QDAY #30 caps 09/03/24 Rx release Allergy/AdvReac Type Severity Reaction Status Date / Time Penicillins Allergy Unknown Verified 01/25/25 16:07 Family History Mother Asthma Diabetes Hypertension Father Diabetes Surgical History History of esophagogastroduodenoscopy (EGD) Social History Smoking Status: Former smoker ROS ROS ED Constitutional Constitutional ED: Denies chills, fever(s) or sweats ENT ENT ED: Denies sore throat Cardiovascular Cardiovascular: Denies chest pain, leg edema, palpitations or racing heartbeat Respiratory/Chest Respiratory/Chest: Denies cough, dyspnea or dyspnea on exertion Gastrointestinal Gastrointestinal: Denies abdominal pain, diarrhea, nausea or vomiting Genitourinary Genitourinary ED: Denies dysuria, hematuria or urinary frequency Musculoskeletal Musculoskeletal: Denies back pain, extremity pain or neck pain Integumentary Denies rash or wounds Neurologic Neurologic: Denies headache(s), paresthesias or weakness Psychiatric Psychiatric: Reports depression, suicidal ideation, suicidal thoughts and other Details: Suicide attempt EXAM Physical Exam Const Vital Signs: 01/25/25 16:07 Temperature 98.5 F Temperature Source Oral Pulse Rate 107 H Respiratory Rate 16 Blood Pressure 109/69 Blood Pressure Mean 82 Pulse Ox 97 Oxygen Delivery Method Room Air Positive well nourished and well developed General Appearance ED: well developed and NAD HEENT Reports moist mucous membranes normocephalic and atraumatic Eyes General Eye ED: Yes normal appearance of both eyes Neck full ROM Neck Narrative: superficial abrasion left anterior neck. Chest Wall Chest: Negative for tenderness Resp normal respiratory effort and normal air moveme (more content not included)... Normal [facility] ,Serum,hCG Quali.on 01-25-2025 HCG, SERUM QUAL Negative Normal [facility] Comment on above: Performed By: #### L 505.5000, L500.2500, L501.9100, L700.6800, L100.0100 ####[facility] [address] [place], [place], [id number] Urine Drug Screen (VISTA)on 01-25-2025 AMPHETAMINES Negative Normal <1000 ng/mL [facility] Comment on above: Performed By: #### L 505.5000, L500.2500, L501.9100, L700.6800, L100.0100 ####[facility] [address] [place], [place], [id number] BARBITIURATES Negative Normal < 200 ng/mL [facility] Comment on above: Performed By: #### L 505.5000, L500.2500, L501.9100, L700.6800, L100.0100 ####[facility] [address] [place], [address] BENZODIAZIPINE Negative Normal < 200 ng/mL [facility] Comment on above: Performed By: #### L 505.5000, L500.2500, L501.9100, L700.6800, L100.0100 ####[facility] [address] [place], [address] BUP Ur Drug Scr Negative Normal < 200 ng/mL [facility] Comment on above: Performed By: #### L 505.5000, L500.2500, L501.9100, L700.6800, L100.0100 ####[facility] [address] [place], [place], [phone] COCAINE Negative Normal < 300 ng/mL [facility] Comment on above: Performed By: #### L 505.5000, L500.2500, L501.9100, L700.6800, L100.0100 ####[facility] [address] [place], [place], [phone] Fentanyl Negative Normal [facility] Comment on above: Performed By: #### L 505.5000, L500.2500, L501.9100, L700.6800, L100.0100 ####[facility] [address] [place], [place], [phone] METHADONE Negative Normal < 300 ng/mL [facility] Comment on above: Performed By: #### L 505.5000, L500.2500, L501.9100, L700.6800, L100.0100 ####[facility] [address] [place], [place], [phone] OPIATES Negative Normal < 300 ng/mL [facility] Comment on above: Performed By: #### L 505.5000, L500.2500, L501.9100, L700.6800, L100.0100 ####[facility] [address] [place], [address] OXYCODONE Negative Normal < 100 ng/mL [facility] Comment on above: Performed By: #### L 505.5000, L500.2500, L501.9100, L700.6800, L100.0100 ####[facility] [address] [place], [address] PCP Negative Normal < 25 ng/mL [facility] Comment on above: Performed By: #### L 505.5000, L500.2500, L501.9100, L700.6800, L100.0100 ####[facility] [address] [place], [address] THC Negative Normal < 50 ng/mL [facility] Comment on above: Performed By: #### L 505.5000, L500.2500, L501.9100, L700.6800, L100.0100 ####[facility] [address] [place], [address] CNOVon 01-04-2025 CNOV Office Visit ([facility] ) REY TAI ([id number]) 5 F Date Time Provider Department 01/04/25 12:45 PM JAJA ROSARIO [facility] During your visit today, we recorded the following information about you: Temperature Pulse Respiration Blood pressure 98.6 degrees 80/minute 18/minute 110/64 Weight 59 kg Jaja Rosario APRN.DAIRY NUTRITIONIST 01/04/2025 1:11 PM Signed [facility] [...] of care. This note was generated using [employer] software. It may contain errors in wording, punctuation, or spelling. Jaja Rosario APRN.[facility] History and Record Review Clinical information obtained from an independent historian. History obtained from or confirmed by: parent. External record(s) reviewed: prior outpatient record. Disposition The patient was discharged. OTC Medications were advised: Procedures Allergies As of Date: 01/04/2025 Noted Allergy Reaction father diandra allergic to PCN [O*2005 Date Reviewed: 01/04/2025 Reviewed by: Jaja Rosario APRN.DAIRY NUTRITIONIST - Fully Assessed Reason for Visit: Constipation [...] OFFICE/OUTPATIENT ES (more content not included)... Normal [facility] EGD Reporton 09-18-2024 EGD Report [facility] Medical Records Department [address] [place] [address] EGD Report MR#: [id number] Acct: [id number] Name: REY TAI Rep #: [id number] : 2005 19 From: Ama Acosta MD PCP: Chiquita Buenrostro DO Status:REG SDC Patient Name: Rey Tai Procedure Date: 09/18/2024 [...] present medications. Procedure Code(s): --- Professional --- 86995, PT, Esophagogastroduodenoscopy, flexible, transoral; with biopsy, single or multiple Diagnosis Code(s): --- Professional --- K22.89, Other specified disease of esophagus K31.89, Other diseases of stomach and duodenum R12, Heartburn CPT copyright 2021 [employer]. All rights reserved. The codes documented in this report are preliminary and upon pilot boat operator review may be revised to meet current compliance requirements. MD Ama Khan MD 09/18/2024 11:15:01 AM This report has been signed electronically. Number of Addenda: 0 Note Initiated On: 09/18/2024 11:00 AM 09/18/24 1115 Date Ama Pulido Signature: Date (if indicated) CC: Dr. Ama Acosta MD; Chiquita Buenrostro DO Date Dictated: 09/18/24 1100 Date Transcribed: Garment Sewer Hand: ZAHIDA Signed Normal [facility] H Pylori (initial)on 025 H Pylori (initial) ----- Patient Age/Sex Location Account Attending Physician ----- REY TAI / EN [id number] Dr. Ama Acosta MD ----- Specimen: [id number] Received: 09/18/24-3512 Status: ERIK Cristina Num: [id number] Spec Type: IMMUNO Subm Dr: Dr. Ama Acosta MD PHYSICIAN INSTITUTION [place] [address] SPECIMEN INFORMATION: Tissue Source: A- Gastric antrum biopsy Clinical Info: Acid reflux Specimen Number: [id number] CPT code: 85658 METHODOLOGY: Deparaffinized sections of prefer/formalin-fixed tissue or [...] developed and their performance characteristics determined by [facility]. They may not have been cleared or approved by the U.S. Food and Drug Administration. The FDA has determined that such clearance or approval is not necessary. The above immunohistochemical/dualISH markers are ordered and reviewed by the Pathologist. INTERPRETATION: A. Gastric antrum, biopsy: Negative for Helicobacter pylori organisms. 09/19/2024 Signed (signature on file) Dr. Ahsan Talamantes MD 09/19/24 1316 ----- Normal [facility] Comment on above: Performed By: #### P H.PYLORI #### [facility] [address] [facility] [place], [address] MR/POSTOP.ANEon 09-18-2024 MR/POSTOP.ANE [facility] Medical Records Department [address] [place] [address] Anesthesia Postop Eval I 09/18/241123 MR#: [id number] Acct: [id number] Name: REY TAI Rep #: [id number] : 2005 19 From: Jose Lay PCP: Chiquita Buenrostro DO Status:REG SDC Y Race: C Location: [place] [address] Anesthesia: Postop Eval I Current Vital Signs [...] Anesthesia document: Postop Eval 1 completed: Yes 09/18/241124 Date Jose Pulido Signature: Date CC: Signed Normal [facility] MR/YHNRWVLQ0tz 09-18-2024 MR/POSTOPAN2 [facility] Medical Records Department [address] [place] [address] Anesthesia Postop Eval II 09/18/24 1134 MR#: [id number] Acct: [id number] Name: REY TAI Rep #: [id number] : 2005 19 From: Oscar Finney MD PCP: Chiquita Buenrostro DO Status:REG SDC Y Race: C Location: [place] [address] Anesthesia Postop Eval I Sum Postop Eval [...] No Vomiting: No 09/18/24 1134 Date Oscar Finney MD Cosigner Signature: Date CC: Signed Normal [facility] ,Urineon 09-18-2024 Beta HCG ( test) Ql (U) Negative Normal [facility] Comment on above: Result Comment: Very dilute urine specimens, as indicated by a low specific gravity, may not contain healthcare representative levels of hCG. If is still suspected, a first morning urine specimen should be collected 48 hours later and tested. Performed By: #### L 400.7600 #### [facility] [place], [address] Special Stain Group Ion - Special Stain Group I ----- Patient Age/Sex Location Account Attending Physician ----- REY TAI EN [id number] Dr. Ama Acosta MD ----- Specimen: [id number] Received: 09/18/24 Status: ERIK Campos Num: [id number] Spec Type: EGD BIOPSY Subm Dr: Dr. [...] cell metaplasia) is not identified. See comment. . 09/19/2024 COMMENT A. The results of immunohistochemistry for Helicobacter pylori will be reported separately ([id number]). B. Alcian blue/PAS stain with matched control [...] labeled with the patient's name and designated "Gastric antrum biopsy." The specimen consists of two irregular fragments of light delgado soft tissue that in aggregate measure 0.6 x 0.3 x 0.1 cm. The specimen is totally submitted in one cassette. B. Received in fixative is one container labeled with the patient's name and designated "GE junction biopsy." The specimen consists of one irregular fragment of light delgado soft tissue that measures 0.4 x 0.2 x 0.1 cm. The specimen is totally submitted in one cassette. . 09/18/2024 TC: 3 CPT:37172m3 ,90245 ----- Patient Age/Sex Location Account Attending Physician ----- REY TAI EN [id number] Dr. Ama Acosta MD ----- Signed (signature on file) Dr. Ahsan Talamantes MD 09/19/24 1323 ----- Normal [facility] Comment on above: Performed By: #### P SSI ####[facility] [address] [place] [place], [place], [address] Surgery Visit Reporton 09-02 Surgery Visit Report [facility] [address] [place] [address] OFFICE VISIT Date of Service: 09/02/24 MR#: [id number] Acct: [id number] Name: REY TAI Rep #: [id number] : 2005 Provider: Dr. Ama dale MD Age/Sex: 19/F Location: [facility] Status: Signed Intake Vital Signs 06/26/24 12:11 [...] the oral budesonide this was all in [place]. Currently patient states that in the last [...] reflux: Status: Acute Orders: Orders EGD 09/18/24 Megha PERDUE PAElizabethC Medications: New omeprazole swallow whole; do not [...] esophagogastroduodenoscopy for (more content not included)... Normal [facility] ONEYDA Comprehensive Panelon ONEYDA TABLE Comment Normal . [facility] Comment on above: Result Comment: Auto antibody [...] Sm (anti-Mora) SLE 15 - 30% --------- IT TECHNICIAN Mixed Connective Tissue Disease 95% (U1 nRNP, SLE 30 - 50% anti-ribonucleoprotein) Polymyositis and/or Dermatomyositis 20% --------- Scl-70 (antiDNA Scleroderma (diffuse) 20 - 35% topoisomerase) Crest 13% --------- Aggie-1 Polymyositis and/or Dermatomyositis 20 - 40% --------- Centromere B Scleroderma - Crest variant 80% Performed By: #### L 505.7010, L503.0105, L503.6550, L100.0100, L506.0250, L506.1000, L3100.7870, L503.6030, L501.9520, L4600.0100, L3100.5440, L101.9900 ####[facility] [address] [facility] [place], [place], [id number] ANTI-DNA (DS)AB <1 Normal 0-9 [facility] Comment on above: Result Comment: Nega tive <5 Equivocal 5 - 9 Positive >9 Performed By: #### L 505.7010, L503.0105, L503.6550, L100.0100, L506.0250, L506.1000, L3100.7870, L503.6030, L501.9520, L4600.0100, L3100.5440, L101.9900 ####[facility] [address] [facility] [place], [place], [id number] CRP, High Sensitivity 335456 on 08-26-2024 CRP, HIGH SENS 0.31 mg/L Normal 0.00-3.00 [facility] Comment on above: Result Comment: Rela tive Risk for Future Cardiovascular Event Low <1.00 Average 1.00 - 3.00 High >3.00 Performed at: [address] [id number] Program Control Analyst: Rajiv Shaffer PhD, Phone: [phone] Performed By: #### L 505.7010, L503.0105, L503.6550, L100.0100, L506.0250, L506.1000, L3100.7870, L503.6030, L501.9520, L4600.0100, L3100.5440, L101.9900 ####[facility] [address] [place], [address] CCP IgG Antibodieson 025 CCP IgG Ab. 3 units Normal 0-19 [facility] Comment on above: Result Comment: Nega tive <20 Weak positive 20 - 39 Moderate positive 40 - 59 Strong positive >59 Performed at: [address] [id number] Program Control Analyst: Rajiv Shaffer PhD, Phone: [phone] Performed By: #### L 505.7010, L503.0105, L503.6550, L100.0100, L506.0250, L506.1000, L3100.7870, L503.6030, L501.9520, L4600.0100, L3100.5440, L101.9900 ####[facility] [address] [place], [place], [phone] CBC W/Diff, Automatedon 08-07 Absolute Lymph 1.98 X10 3/uL Normal 0.83-4.51 [facility] Comment on above: Performed By: #### L 505.7010, L503.0105, L503.6550, L100.0100, L506.0250, L506.1000, L3100.7870, L503.6030, L501.9520, L4600.0100, L3100.5440, L101.9900 ####[facility] [address] [place], [address] Absolute Neut 4.0 X10 3/uL Normal 2.0-7.7 [facility] Comment on above: Performed By: #### L 505.7010, L503.0105, L503.6550, L100.0100, L506.0250, L506.1000, L3100.7870, L503.6030, L501.9520, L4600.0100, L3100.5440, L101.9900 ####[facility] [address] [place], [address] Basophils/100 WBC (Bld) 0.6 % Normal 0-1 [facility] Comment on above: Performed By: #### L 505.7010, L503.0105, L503.6550, L100.0100, L506.0250, L506.1000, L3100.7870, L503.6030, L501.9520, L4600.0100, L3100.5440, L101.9900 ####[facility] [address] [place], [address] Eosinophils/100 WBC (Bld) 1.1 % Normal 0-5 [facility] Comment on above: Performed By: #### L 505.7010, L503.0105, L503.6550, L100.0100, L506.0250, L506.1000, L3100.7870, L503.6030, L501.9520, L4600.0100, L3100.5440, L101.9900 ####[facility] [address] [place], [address] Erythrocyte distribution width (RBC) [Ratio] 11.6 % Normal 11.6-14.6 [facility] Comment on above: Performed By: #### L 505.7010, L503.0105, L503.6550, L100.0100, L506.0250, L506.1000, L3100.7870, L503.6030, L501.9520, L4600.0100, L3100.5440, L101.9900 ####[facility] [address] [place], [place], [id number] Hematocrit (Bld) [Volume fraction] 35.5 % Low 37-47 [facility] Comment on above: Performed By: #### L 505.7010, L503.0105, L503.6550, L100.0100, L506.0250, L506.1000, L3100.7870, L503.6030, L501.9520, L4600.0100, L3100.5440, L101.9900 ####[facility] [address] [place], [place], [phone] Hemoglobin (Bld) [Mass/Vol] 11.8 g/dL Low 12.0-15.0 [facility] Comment on above: Performed By: #### L 505.7010, L503.0105, L503.6550, L100.0100, L506.0250, L506.1000, L3100.7870, L503.6030, L501.9520, L4600.0100, L3100.5440, L101.9900 ####[facility] [address] [place], [place], [phone] IG% 0.200 Normal 0.0-0.9 [facility] Comment on above: Result Comment: IG% - Immature Granulocytes (promyelocytes, myelocytes and metamyelocytes) > 1% indicates that a LEFT SHIFT is Present. Performed By: #### L 505.7010, L503.0105, L503.6550, L100.0100, L506.0250, L506.1000, L3100.7870, L503.6030, L501.9520, L4600.0100, L3100.5440, L101.9900 ####[facility] [address] [place], [address] Lymphocytes/100 WBC (Bld) 30.6 % Normal 19-41 [facility] Comment on above: Performed By: #### L 505.7010, L503.0105, L503.6550, L100.0100, L506.0250, L506.1000, L3100.7870, L503.6030, L501.9520, L4600.0100, L3100.5440, L101.9900 ####[facility] [address] [place], [address] MCH (RBC) [Entitic mass] 30.0 pg Normal 27.0-32.0 [facility] Comment on above: Performed By: #### L 505.7010, L503.0105, L503.6550, L100.0100, L506.0250, L506.1000, L3100.7870, L503.6030, L501.9520, L4600.0100, L3100.5440, L101.9900 ####[facility] [address] [place], [address] MCHC (RBC) [Mass/Vol] 33.2 g/dL Normal 32-36 [facility] Comment on above: Performed By: #### L 505.7010, L503.0105, L503.6550, L100.0100, L506.0250, L506.1000, L3100.7870, L503.6030, L501.9520, L4600.0100, L3100.5440, L101.9900 ####[facility] [address] [place], [address] MCV (RBC) [Entitic vol] 90.3 fL Normal 81-99 [facility] Comment on above: Performed By: #### L 505.7010, L503.0105, L503.6550, L100.0100, L506.0250, L506.1000, L3100.7870, L503.6030, L501.9520, L4600.0100, L3100.5440, L101.9900 ####[facility] [address] [place], [address] Monocytes/100 WBC (Bld) 6.0 % Normal 0-10 [facility] Comment on above: Performed By: #### L 505.7010, L503.0105, L503.6550, L100.0100, L506.0250, L506.1000, L3100.7870, L503.6030, L501.9520, L4600.0100, L3100.5440, L101.9900 ####[facility] [address] [place], [place], [phone] Neutrophils/100 WBC (Bld) 61.5 % Normal 47-70 [facility] Comment on above: Performed By: #### L 505.7010, L503.0105, L503.6550, L100.0100, L506.0250, L506.1000, L3100.7870, L503.6030, L501.9520, L4600.0100, L3100.5440, L101.9900 ####[facility] [address] [place], [place], [phone]([phone] Nucleated RBC (Bld) [#/Vol] 0 10*3/uL Normal 0-5 [facility] Comment on above: Performed By: #### L 505.7010, L503.0105, L503.6550, L100.0100, L506.0250, L506.1000, L3100.7870, L503.6030, L501.9520, L4600.0100, L3100.5440, L101.9900 ####[facility] [address] [place], [place], [phone] Platelet mean volume (Bld) [Entitic vol] 10.9 fL Normal 6.2-12.0 [facility] Comment on above: Performed By: #### L 505.7010, L503.0105, L503.6550, L100.0100, L506.0250, L506.1000, L3100.7870, L503.6030, L501.9520, L4600.0100, L3100.5440, L101.9900 ####[facility] [address] [place], [address] Platelets (Bld) [#/Vol] 434 10*3/uL Normal 150-450 [facility] Comment on above: Performed By: #### L 505.7010, L503.0105, L503.6550, L100.0100, L506.0250, L506.1000, L3100.7870, L503.6030, L501.9520, L4600.0100, L3100.5440, L101.9900 ####[facility] [address] [place], [address] RBC (Bld) [#/Vol] 3.93 10*6/uL Low 4.2-5.4 [facility] Comment on above: Performed By: #### L 505.7010, L503.0105, L503.6550, L100.0100, L506.0250, L506.1000, L3100.7870, L503.6030, L501.9520, L4600.0100, L3100.5440, L101.9900 ####[facility] [address] [place], [address] RDW SD 38.4 fl Normal 35.1-43.9 [facility] Comment on above: Performed By: #### L 505.7010, L503.0105, L503.6550, L100.0100, L506.0250, L506.1000, L3100.7870, L503.6030, L501.9520, L4600.0100, L3100.5440, L101.9900 ####[facility] [address] [place], [address] WBC (Bld) [#/Vol] 6.5 10*3/uL Normal 4.4-11.0 [facility] Comment on above: Performed By: #### L 505.7010, L503.0105, L503.6550, L100.0100, L506.0250, L506.1000, L3100.7870, L503.6030, L501.9520, L4600.0100, L3100.5440, L101.9900 ####[facility] [address] [place], [address] Erythrocyte Sed Rateon 08-22 SED RATE 12 mm/hr Normal 0-30 [facility] Comment on above: Performed By: #### L 505.7010, L503.0105, L503.6550, L100.0100, L506.0250, L506.1000, L3100.7870, L503.6030, L501.9520, L4600.0100, L3100.5440, L101.9900 ####[facility] [address] [place], [address] Ferritinon 08-22-2024 Ferritin [Mass/Vol] 17 ng/mL Normal 8-252 [facility] Comment on above: Order Comment: N Performed By: #### L 505.7010, L503.0105, L503.6550, L100.0100, L506.0250, L506.1000, L3100.7870, L503.6030, L501.9520, L4600.0100, L3100.5440, L101.9900 ####[facility] [address] [place], [address] Folates, (Folic Acid)on 08-07 FOLATES 21.90 ng/mL Normal 3.1-55.4 [facility] Comment on above: Order Comment: N Performed By: #### L 505.7010, L503.0105, L503.6550, L100.0100, L506.0250, L506.1000, L3100.7870, L503.6030, L501.9520, L4600.0100, L3100.5440, L101.9900 ####[facility] [address] [place], [place], [phone] Iron+Iron Binding Capacityon 08-22-2024 Iron [Mass/Vol] 83 ug/dL Normal 50-170 [facility] Comment on above: Order Comment: N Performed By: #### L 505.7010, L503.0105, L503.6550, L100.0100, L506.0250, L506.1000, L3100.7870, L503.6030, L501.9520, L4600.0100, L3100.5440, L101.9900 ####[facility] [address] [place], [place], [phone] IRON SATURATION 20.4 Normal 15.0-55.0 [facility] Comment on above: Order Comment: N Performed By: #### L 505.7010, L503.0105, L503.6550, L100.0100, L506.0250, L506.1000, L3100.7870, L503.6030, L501.9520, L4600.0100, L3100.5440, L101.9900 ####[facility] [address] [place], [place], [id number] TIBC 406 ug/dL Normal 250-450 [facility] Comment on above: Order Comment: N Performed By: #### L 505.7010, L503.0105, L503.6550, L100.0100, L506.0250, L506.1000, L3100.7870, L503.6030, L501.9520, L4600.0100, L3100.5440, L101.9900 ####[facility] [address] [place], [place], [phone] Rheumatoid Factoron 08-22-19 25 RHEUMATOID FAC < 10.0 Normal <15 [facility] Comment on above: Order Comment: N Performed By: #### L 505.7010, L503.0105, L503.6550, L100.0100, L506.0250, L506.1000, L3100.7870, L503.6030, L501.9520, L4600.0100, L3100.5440, L101.9900 ####[facility] [address] [facility] [place], [place], [id number] Thyroid Stim Hormone (TSH)on 08-22-2024 TSH 3.400 uIU/mL Normal 0.358-3.740 [facility] Comment on above: Order Comment: N Performed By: #### L 505.7010, L503.0105, L503.6550, L100.0100, L506.0250, L506.1000, L3100.7870, L503.6030, L501.9520, L4600.0100, L3100.5440, L101.9900 ####[facility] [address] [facility] [place], [place], [phone] Vitamin B12on 08-22-2024 Cobalamin (Vitamin B12) [Mass/Vol] 446 pg/mL Normal 211-911 [facility] Comment on above: Performed By: #### L 505.7010, L503.0105, L503.6550, L100.0100, L506.0250, L506.1000, L3100.7870, L503.6030, L501.9520, L4600.0100, L3100.5440, L101.9900 ####[facility] [address] [facility] [place], [place], [id number] Vitamin D,25 Hydroxyon 08-22 Vitamin D 25-OH 7.8 ng/mL Normal [facility] Comment on above: Result Comment: Jessenia min D 25(OH) Status Range Deficiency <20 ng/mL (50nmol/L) Insufficiency 20 - 30 ng/mL (50 - 75 nmol/L) Sufficiency 30 - 100 ng/mL (75 - 250 nmol/L) Toxicity >100 ng/mL (>250 nmol/L) Performed By: #### L 505.7010, L503.0105, L503.6550, L100.0100, L506.0250, L506.1000, L3100.7870, L503.6030, L501.9520, L4600.0100, L3100.5440, L101.9900 ####[facility] [address] [place], [place], [id number] Vital Signs Date Time Vital Sign Value Performing Clinician Adela zelaya 01-04-2025 12:48-0400 Body temperature 98.6 [degF] Jaja Rosario PAINT STRIPPER.DAIRY NUTRITIONIST Work Phone: [facility] 01-04-2025 12:48-0400 Body weight 59 kg Jaja Rosario PAINT STRIPPER.DAIRY NUTRITIONIST Work Phone: [facility] 01-04-2025 12:48-0400 Diastolic blood pressure 64 mm[Hg] Jaja Rosario PAINT STRIPPER.DAIRY NUTRITIONIST Work Phone: [facility] 01-04-2025 12:48-0400 Heart rate 80 /min Jaja Rosario PAINT STRIPPER.DAIRY NUTRITIONIST Work Phone: [facility] 01-04-2025 12:48-0400 Respiratory rate 18 /min Jaja Rosario PAINT STRIPPER.DAIRY NUTRITIONIST Work Phone: [facility] 01-04-2025 12:48-0400 SaO2% (BldA) [Mass fraction] 98 % Jaja Rosario PAINT STRIPPER.DAIRY NUTRITIONIST Work Phone: [facility] 01-04-2025 12:48-0400 Systolic blood pressure 110 mm[Hg] Jaja Rosario PAINT STRIPPER.DAIRY NUTRITIONIST Work Phone: [facility] Encounters Encounter Date Encounter Type Care Provider Facility Start: 05-20-2025 End: 05-20-2025 ambulatory Zebulun Beam [facility] Facility:[facility] Start: 05-13-2025 End: 05-13-2025 Emergency department patient visit Marlene Esqueda Facility:[facility] Start: 05-13-2025 End: 05-13-2025 ambulatory ELOISA SAGASTUME Facility:[facility] Start: 03-25-2025 End: 03-25-2025 ambulatory Zebulun Beam [facility] Facility:[facility] Start: 01-25-2025 End: 01-26-2025 Emergency department patient visit Vidal Molina Facility:[facility] Start: 01-04-2025 End: 01-04-2025 Office outpatient visit 15 minutes Jaja Rosario APRN.DAIRY NUTRITIONIST Work Phone: [facility] Comment on above: Acute constipation ( Primary Dx) Start: 01-04-2025 End: 01-04-2025 ambulatory JAJA ROSARIO Facility:[facility] Start: 10-03-2024 Encounter for other preprocedural examination [facility] Start: 09-18-2024 End: 09-18-2024 ambulatory [facility] Facility:[facility] Start: 09-02-2024 End: 09-02-2024 ambulatory Chiquita Buenrostro [facility] [place] Facility:[facility] Start: 08-22-2024 End: 08-22-2024 ambulatory Zebulun Beam C Facility:[facility] Start: 08-08-2024 End: 08-09-2024 ambulatory Jaclyn Alejandrero Facility:[facility] Start: 07-08-2024 End: 08-06-2024 ambulatory Jaclyn DiLro Facility:[facility] Start: 06-25-2024 End: 07-06-2024 ambulatory Jaclyn DiLro Facility:[facility] Plan of Treatment Date Care Activity Detail Author Start: 04-07-2025 Influenza vaccination Influenz a Vaccine (Season Ended) [facility] Start: 04-07-2024 Covid-19 Vaccine ( season) Covid-19 Vaccine ( season) [facility] Start: 2023 Anxiety Screening Anxiety Screening [facility] Start: 2023 Depression Screening Depression Scre ening [facility] Start: 2023 GC (Gonorrhea) Screzuleika gamaliel (18-24) GC (Gonorrhea) Screening (18-24) [facility] Start: 2023 Hepatitis C screening Hepatitis C Sc justice [facility] Start: 2023 HIV screening HIV Screening [facility] Start: 2023 Screening for Chlamy angelina trachomatis Chlamydia Screening (18-24) [facility] Start: 2021 Meningococcal B Vacc ine (1 of 2 - Standard) Meningococcal B Vaccine (1 of 2 - Standard) [facility] Start: 2020 HPV Vaccine (1 - 3-d ose series) HPV Vaccine (1 - 3-dose series) [facility] Start: 2019 Peds To Adult Transi tion Annual Assessment Peds To Adult Transition Annual Assessment [facility] Start: 2017 Peds To Adult Transi tion Initial Discussion Peds To Adult Transition Initial Discussion [facility] Start: 2016 Urine microalbumin profile DTa P,Tdap,Td Vaccine (6 - Tdap) [facility] Immunizations Immunization Date Immunization Notes Care Provider Fa cili 2010 diphtheria, tetanus toxoids and acellular pertussis vaccine Jaja Rosario APRN.DAIRY NUTRITIONIST Work Phone: [facility] 2010 influenza virus vaccine, live, attenuated, for intranasal use Jaja Rosario PAINT STRIPPER.DAIRY NUTRITIONIST Work Phone: [facility] 2010 measles, mumps and rubella virus vaccine Jaja Rosario PAINT STRIPPER.DAIRY NUTRITIONIST Work Phone: [facility] 2010 poliovirus vaccine, inactivated Jaja Rosario PAINT STRIPPER.DAIRY NUTRITIONIST Work Phone: [facility] 2010 varicella virus vaccine Jaja Rosario PAINT STRIPPER.DAIRY NUTRITIONIST Work Phone: [facility] 2010 influenza virus vaccine, unspecified formulation Jaja Rosario PAINT STRIPPER.DAIRY NUTRITIONIST Work Phone: [facility] 08-11-2009 varicella virus vaccine Jaja Rosario PAINT STRIPPER.DAIRY NUTRITIONIST Work Phone: [facility] 10-18-2007 diphtheria, tetanus toxoids and acellular pertussis vaccine [facility] PAINT STRIPPER.DAIRY NUTRITIONIST Work Phone: [facility] 10-18-2007 haemophilus influenz ae type b vaccine, HbOC conjugate [facility] PAINT STRIPPER.DAIRY NUTRITIONIST Work Phone: [facility] 10-18-2007 pneumococcal conjuga te vaccine, 7 valent [facility] PAINT STRIPPER.DAIRY NUTRITIONIST Work Phone: [facility] 10-18-2007 poliovirus vaccine, inactivated [facility] PAINT STRIPPER.DAIRY NUTRITIONIST Work Phone: [facility] 08-16-2006 measles, mumps and rubella virus vaccine [facility] PAINT STRIPPER.DAIRY NUTRITIONIST Work Phone: [facility] 05-24-2006 diphtheria, tetanus toxoids and acellular pertussis vaccine [facility] PAINT STRIPPER.DAIRY NUTRITIONIST Work Phone: [facility] 05-24-2006 haemophilus influenz ae type b vaccine, HbOC conjugate [facility] PAINT STRIPPER.DAIRY NUTRITIONIST Work Phone: [facility] 05-24-2006 pneumococcal conjuga te vaccine, 7 valent [facility] PAINT STRIPPER.DAIRY NUTRITIONIST Work Phone: [facility] 02-24-2006 diphtheria, tetanus toxoids and acellular pertussis vaccine [facility] PAINT STRIPPER.DAIRY NUTRITIONIST Work Phone: [facility] 02-24-2006 haemophilus influenz ae type b vaccine, HbOC conjugate [facility] PAINT STRIPPER.DAIRY NUTRITIONIST Work Phone: [facility] 02-24-2006 hepatitis B vaccine, pediatric or pediatric/adolescent dosage [facility] PAINT STRIPPER.DAIRY NUTRITIONIST Work Phone: [facility] 02-24-2006 pneumococcal conjuga te vaccine, 7 valent [facility] PAINT STRIPPER.DAIRY NUTRITIONIST Work Phone: [facility] 02-24-2006 poliovirus vaccine, inactivated [facility] PAINT STRIPPER.DAIRY NUTRITIONIST Work Phone: [facility] 2005 DTaP-hepatitis B and poliovirus vaccine Jaja Abraham PAINT STRIPPER.DAIRY NUTRITIONIST Work Phone: [facility] Work Phone: 2005 haemophilus influenz ae type b vaccine, HbOC conjugate Jaja Abraham PAINT STRIPPER.DAIRY NUTRITIONIST Work Phone: [facility] 2005 pneumococcal conjuga te vaccine, 7 valent Jaja Abraham PAINT STRIPPER.DAIRY NUTRITIONIST Work Phone: [facility] Work Phone: 2005 hepatitis B vaccine, pediatric or pediatric/adolescent dosage Jaja Gutierrezbeau PAINT STRIPPER.DAIRY NUTRITIONIST Work Phone: [facility] Payers Date Payer Category Payer Self-pay 2024 Medicaid [employer] [id number] 2024 Unknown [id number] Unknown [id number] Unknown [id number] Unknown [id number] Unknown [id number] Unknown [id number] Unknown [id number] Unknown [id number] Unknown [id number] Unknown [id number] Unknown [id number] Unknown [id number] Social History Date Type Detail Facility Tobacco smoking status NHIS Never smoked tobacco [facility] History of tobacco use Passive smoker [facility] Start: 01-04-2025 Alcoholic beverage intake Not Asked [facility] Start: 01-04-2025 History of Social function [facility] Start: 01-04-2025 Tobacco use panel [facility] Start: 2005 Sex assigned at Not on file [facility] Functional Status Date Assessment Result Facility 12-02-2014 Are you deaf, or do you have serious difficulty hearing No 12/02/2014 2:08 PM Lashay [place] No [facility] 12-02-2014 Are you blind, or do you have serious difficulty seeing, even when wearing glasses No 12/02/2014 2:08 PM Lashay [place] No [facility] 12-02-2014 Do you have serious difficulty walking or climbing stairs No 12/02/2014 2:08 PM Lashay [place] No [facility] 12-02-2014 Do you have difficul ty dressing or bathing No 12/02/2014 2:08 PM Lashay [place] No [facility] Mental Status Date Assessment Result Facility 12-02-2014 Because of a physica l, mental, or emotional condition, do you have serious difficulty concentrating, remembering, or making decisions Yes 12/02/2014 2:08 PM Lashay [place] Yes [facility] Progress note 05-13-2025 Note Date & Type Note Facility 05-13-2025 Note HNO ID: [id number] Author: ELOISA SAGASTUME APRN.DAIRY NUTRITIONIST Service: ? Author Type: Nurse Practitioner Type: Progress Notes Filed: 05/13/2025 12:21 Note Text: URGENT CARE RADHA Tai is a 19 year old female. Patient presents with: Cough: Cough, chest congestion x 8 days Cough The patient is a 19-year-old female presenting with hemoptysis, chest pain, and dyspnea. Hemoptysis: - Hemoptysis x2 days, primarily at night. - Describes expectorating "chunks" or "blobs" of dark blood, varying in size but generally around the size of a fingernail. - Denies expectorating golf ball-sized amounts of blood. Chest Pain: - Reports chest pain. - Mild pleuritic pain with deep inspiration. Dyspnea: - Reports dyspnea. Review of Systems Respiratory: Positive for cough. Cardiovascular: (+) chest pain Respiratory: (+) hemoptysis, (+) shortness of breath Objective BP 102/64 Pulse 80 Temp 36.8 ?C (98.2 ?F) (Tympanic) Resp 16 Wt 54.9 kg (121 lb 0.5 oz) SpO2 98% Physical Exam General: No acute distress. { 1. Hemoptysis (R04.2) 2. Chest pain, unspecified type (R07.9) - Acute hemoptysis with dark blood and associated chest pain and dyspnea are concerning for a potentially serious underlying condition. - Advised immediate evaluation in the emergency department to rule out life-threatening causes. - Educated patient on the significance of dark blood as a red flag symptom indicating possible internal bleeding; patient verbalized understanding. and Recording using [employer] software for draft documentation of the visit was discussed with the patient/authorized healthcare representative; all questions welcomed and answered. Patient/authorized healthcare representative agreed to proceed History and Record Review External record(s) reviewed: no prior records. Disposition The patient was other (comment). Procedures [facility] Progress note 01-04-2025 Note Date & Type Note Facility 01-04-2025 Note HNO ID: [id number] Author: JAJA ROSARIO APRN.DAIRY NUTRITIONIST Service: ? Author Type: Nurse Practitioner Type: Progress Notes Filed: 01/04/2025 13:11 Note Text: RADHA EXPRESS RENÉE Tai is a 19 year old female. [...] of care. This note was generated using [employer] software. It may contain errors in wording, punctuation, or spelling. Jaja Rosario APRN.[facility] History and Record Review Clinical information obtained from an independent historian. History obtained from or confirmed by: parent. External record(s) reviewed: prior outpatient record. Disposition The patient was discharged. OTC Medications were advised: Procedures [facility] History of Present illness Narrative 01-04-2025 Jaja Rosario APRN.DAIRY NUTRITIONIST - 01/04/2025 12:55 PM EDT Note Date [...] of care. This note was generated using [employer] software. It may contain errors in wording, punctuation, or spelling. Jaja Rosario APRN.[facility] History and Record Review Clinical information obtained from an independent historian. History obtained from or confirmed by: parent. External record(s) reviewed: prior outpatient record. Disposition The patient was discharged. OTC Medications were advised: Procedures documented in this encounter [facility] Clinical Note 09-18-2024 Note Date & Type Note Facility 09-18-2024 Note [facility] Medical Records Department [address] [place] [address] History Physical Exam 09/18/24 08 MR#: [id number] Acct: [id number] Name: REY TAI Rep #: [id number] : 2005 19 From: Ama Acosta MD PCP: Chiquita Buenrostor DO Status:[facility] Location: [place] [address] History and Physical Date of Admission: 09/18/24 Date of Service: 09/02/24 MR#: [id number] Acct: [id number] Name: REY TAI Rep #: [id number] : 2005 Provider: Dr. Ama Acosta MD Age/Sex: 19/F Location: [facility] Status: Signed Intake Vital Signs 06/26/2412:11 09/02/2508:26 [...] QDAY #30 caps 09/03/24 09/03/24 Rx release [facility] Medical History (Updated 09/02/24 @ 09:25 by [...] the oral budesonide this was all in [place]. Currently patient states that in the last week she has been having bad GERD symptoms with burning up her esophagus daily along with nausea. Patient states that prior to that she was having an acid feeling in her throat about 4 days out of the week. Patient is not on any medication for this. Patient does like marimitchella sauce/spaghetti. Patient states she can get the [...] reflux: Status: Acute Orders: Orders EGD 09/18/24 Megha PERDUE PA-C Medications: New omeprazole swallow whole; do not crush, chew, dissolve, cut, break 40 mg PO QDAY [address] Ama Acosta MD (more content not included)... [facility] Evaluation note Note Date & Type Note Facility Evaluation note Diagnosis Acute constipation- Primary Unspecified constipation documented in this encounter [facility] Summary Purpose Family History No Family History Records FoundNo Family History Records Found Advance Directives No Advanced Directives Records FoundNo Advanced Directives Records Found Additional Source Comments Source Comments (unrecognize d section and content) In the event this informatio n is protected by the Federal Confidentiality of Alcohol and Drug Abuse Patient Records regulations: The Federal rules restrict any use of the information to criminally investigate or prosecute any alcohol or drug abuse patient.[facility] Reason for Visit (unrecogniz ed section and content) Reason Comments Constipation X 5 days INFORMATION SOURCE (unrecogn ized section and content) DATE CREATED AUTHOR 05/15/2025 [facility] DATE CREATED AUTHOR AUTHOR'S ORGANIZ ATION 06/02/2025 [facility] FOR RECORDS PERTAINING TO PATIENTS WHO ARE [...] BE BASED ON THE PRIMARY CLINICAL RECORDS. [facility] provides no warranty or guarantee of the accuracy or completeness of information in this document.
[2025-06-22] MEDS: DiphenhydrAMINE 50 MG/ML Syringe IV (22:14)
[2025-06-22] MEDS: 0.9% Normal Saline (1000mL) 1,000 ML 1000 ML IV (22:14)
[2025-06-22] MEDS: Ketorolac 30 MG/ML Syringe IV (22:14)
[2025-06-23 00:01] VITALS: BP 118/69; PULSE 80; RESP 16; TEMP 36.6; O2SAT 99
== END 2025-06-23 00:02 | disposition home or self-care (01) ==
PROVIDERS: Emergency Provider Emergency Medicine; Visit Provider Emergency Medicine
DX: R51.9 Headache, unspecified (principal); R42 Dizziness and giddiness; R11.0 Nausea; R29.700 NIHSS score 0; D64.9 Anemia, unspecified; K21.9 Gastro-esophageal reflux disease without esophagitis; F17.210 Nicotine dependence, cigarettes, uncomplicated; F17.290 Nicotine dependence, other tobacco product, uncomplicated
CPT/HCPCS: 96361; 96374; 96375; 99285; A4216

== ENCOUNTER → 2025-07-01 | Outpatient (CLI) | payer MEDICAID, SELFPAY ==
--- NOTE | 2025-07-01 10:30 | EKG12_ITS ---
Test Reason : PALP Blood Pressure : */* mmHG Vent. Rate : 60 BPM Atrial Rate : 60 BPM P-R Int : 146 ms QRS Dur : 76 ms QT Int : 358 ms P-R-T Axes : 68 88 82 degrees QTcB Int : 358 ms Normal sinus rhythm with sinus arrhythmia Normal ECG Confirmed by GLORIA POTTS, PRABHU ([id number]), make up editor MEGHA BUTLER ([id number]) on 07/02/2025 9:03:55 AM Referred By: Candis Rayo Confirmed By: PRABHU CASTRO MD
== END | disposition home or self-care (01) ==
LOC: PSN 10:28
DX: R00.2 Palpitations (principal)
CPT/HCPCS: 93005